=== PATIENT | male | born 1950 | race Caucasian/White ===

== ENCOUNTER 2017-12-17 16:15 | Inpatient (IN) | payer OTHER, MEDICARE ==
[~2017-12-17] VITALS: Ht 188 cm; Wt 108.0 kg
[~2017-12-17 16:15] MED LIST: ASPI-1071 PO; BUDE10.22 INH; CARV-50 PO; FLUT1AER IH; FURO-150 PO; GABA-532 PO; IPRA3AMP9 IH; OMEP40CA37 PO; POTA10TA36 PO; QUET-1 PO
[2017-12-17] MEDS ORDERED: ipratropium/albuterol 3ml nebule NEB ONE (16:45)
[2017-12-17] MEDS ORDERED: methylPREDNISolone sod succ 125mg/2ml vial IV ONE ×2 (16:45)
[2017-12-17 17:22] LABS: BASOPHILS # (AUTO) 1.4 X10'3 (0-0.2); BASOPHILS % (AUTO) 2.5 % (0-1); EOSINOPHILS # (AUTO) 0.2 X10'3 (0-0.9); EOSINOPHILS % (AUTO) 0.4 % (0-6); HEMATOCRIT 39.1 % (42.0-52.0); HEMOGLOBIN 13.1 g/dl (14.0-17.9); LYMPHOCYTES # (AUTO) 48.1 X10'3 (1.1-4.8); LYMPHOCYTES % (AUTO) 85.1 % (21-51); MEAN CORPUSCULAR HEMOGLOBIN 34.1 PG (27.0-31.0); MEAN CORPUSCULAR HGB CONC 33.4 % (33.0-36.5); MEAN CORPUSCULAR VOLUME 102.1 FL (78-98); MEAN PLATELET VOLUME 6.9 FL (7.4-10.4); MONOCYTES # (AUTO) 0.4 X10'3 (0-0.9); MONOCYTES % (AUTO) 0.7 % (2-12); NEUTROPHILS # (AUTO) 6.4 X10'3 (1.8-7.7); NEUTROPHILS % (AUTO) 11.3 % (42-75); PLATELET COUNT 123 X10'3 (140-440); RED BLOOD COUNT 3.83 X10'6 (4.70-6.10); RED CELL DISTRIBUTION WIDTH 16.7 % (11.5-14.5)
[2017-12-17 17:25] LABS: WHITE BLOOD COUNT 56.5 X10'3 (4.5-11.0)
[2017-12-17 17:30] LABS: PARTIAL THROMBOPLASTIN TIME 25 SECONDS (22-32); PROTHROMBIN TIME 10.1 SECONDS (9.0-12.0)
[2017-12-17 17:31] LABS: ABG BASE EXCESS 2.4 mmol/L (-2.0-3.0); ABG HCO3 25.8 mmol/L (22.0-26.0); ABG OXYGEN SATURATION 90.1 % (95-98); ABG PH (T) 7.473 (7.350-7.450); ABG PO2 (T) 52.1 mmHg (83-108); ALLEN'S TEST Positive; FCOHb 3.9 % (0.5-1.5); FMetHb 0.1 % (0.3-1.12); FO2Hb 86.5 % (94-100); TOTAL HEMOGLOBIN 13.4 G/dl (14.0-18.0)
[2017-12-17 17:42] LABS: ALANINE AMINOTRANSFERASE 31 U/L (12-78); ALBUMIN 3.7 G/DL (3.4-5.0); ALBUMIN/GLOBULIN RATIO 1.1 (1.1-1.5); ALKALINE PHOSPHATASE 83 IU/L (46-116); ANION GAP 4 (8-16); ASPARTATE AMINO TRANSFERASE 33 U/L (10-37); BILIRUBIN,TOTAL 0.6 MG/DL (0.1-1.0); BLOOD UREA NITROGEN 15 MG/DL (7-18); BUN/CREATININE RATIO 11.5 (5.4-32.0); CALCIUM 8.6 MG/DL (8.5-10.1); CHLORIDE 101 MMOL/L (99-107); GLUCOSE 109 MG/DL (70-104); POTASSIUM 3.9 MMOL/L (3.5-5.1); SODIUM 137 MMOL/L (135-145); TOTAL CARBON DIOXIDE 31.9 MMOL/L (24-32); TOTAL PROTEIN 7.2 G/DL (6.4-8.2); eGFR 55 ML/MIN
[2017-12-17 18:23] LABS: TOTAL CELLS COUNTED 100
[2017-12-17 18:24] LABS: ANISOCYTOSIS 1+; PLATELET ESTIMATE DECREASED; SMUDGE CELLS 3+
[2017-12-17] MEDS ORDERED: iohexol 350MG/ML 100ml bottle IV ONE (18:38)
[2017-12-17] MEDS ORDERED: levoFLOXACIN-Levaquin 500mg/D5 100 ML IV ONE (19:35)
[2017-12-17] MEDS ORDERED: mag hydrox/Alum hydrox/simeth 30ml oral suspension PO PRN (20:15)
[2017-12-17] MEDS ORDERED: acetaminophen 325mg tablet PO PRN (20:15)
[2017-12-17] MEDS ORDERED: ondansetron/PF 4mg/2ml inj IV PRN (20:15)
[2017-12-17 21:05] VITALS: BP 133/89
[2017-12-17] MEDS ORDERED: albuterol 2.5 MG/3 ML nebule NEB PRN (22:10)
[2017-12-17] MEDS: quetiapine 100mg tablet PO SCH (23:34)
[2017-12-17] MEDS: gabapentin 300mg capsule PO SCH (23:34)
[2017-12-17] MEDS: methylPREDNISolone sod succ/PF 40mg inj. IV SCH (23:35)
[2017-12-18 06:19] LABS: HEMATOCRIT 36.7 % (42.0-52.0); HEMOGLOBIN 12.2 g/dl (14.0-17.9); MEAN CORPUSCULAR HGB CONC 33.3 % (33.0-36.5); MEAN CORPUSCULAR VOLUME 102.2 FL (78-98); MEAN PLATELET VOLUME 7.2 FL (7.4-10.4); PLATELET COUNT 129 X10'3 (140-440); RED CELL DISTRIBUTION WIDTH 16.7 % (11.5-14.5)
[2017-12-18 06:34] LABS: WHITE BLOOD COUNT 70.7 X10'3 (4.5-11.0)
[2017-12-18 06:40] LABS: ALANINE AMINOTRANSFERASE 19 U/L (12-78); ALBUMIN 3.4 G/DL (3.4-5.0); ALKALINE PHOSPHATASE 81 IU/L (46-116); ANION GAP 8 (8-16); ASPARTATE AMINO TRANSFERASE 16 U/L (10-37); BILIRUBIN,TOTAL 0.5 MG/DL (0.1-1.0); BLOOD UREA NITROGEN 13 MG/DL (7-18); CALCIUM 8.4 MG/DL (8.5-10.1); CHLORIDE 100 MMOL/L (99-107); GLUCOSE 145 MG/DL (70-104); POTASSIUM 3.7 MMOL/L (3.5-5.1); SODIUM 136 MMOL/L (135-145); TOTAL CARBON DIOXIDE 27.9 MMOL/L (24-32); TOTAL PROTEIN 6.7 G/DL (6.4-8.2); eGFR 75 ML/MIN
[2017-12-18 06:57] LABS: ANISOCYTOSIS 1+; LYMPHOCYTES % (MANUAL) 90 % (21-51); MONOCYTES % (MANUAL) 1 % (2-12); NEUTROPHILS % (MANUAL) 9 % (42-75); PLATELET ESTIMATE DECREASED; TOTAL CELLS COUNTED 100
[2017-12-18 06:58] LABS: SMUDGE CELLS 4+
[2017-12-18] MEDS: ipratropium/albuterol 3ml nebule NEB PRN ×3 (07:43→22:22)
[2017-12-18 07:46] VITALS: BP 114/71
[2017-12-18] MEDS: methylPREDNISolone sod succ/PF 40mg inj. IV SCH (08:00)
[2017-12-18] MEDS ORDERED: non-formulary drug (Potassium Chloride (K-Dur) 1 TAB) PO SCH (08:00)
[2017-12-18] MEDS ORDERED: methylPREDNISolone sod succ/PF 40mg inj. IV SCH (08:00)
[2017-12-18] MEDS: potassium chloride 10mEq ER tablet PO SCH (08:12)
[2017-12-18] MEDS: LACTOBACILLUS RHAMNOSUS GG 15 billion unit sprinkle caps PO SCH (08:12)
[2017-12-18] MEDS: furosemide 20MG tablet PO SCH (08:12)
[2017-12-18] MEDS: aspirin 81mg tablet.DR PO SCH (08:13)
[2017-12-18] MEDS: carVEDilol 3.125mg tablet PO SCH ×2 (08:13→22:46)
[2017-12-18] MEDS: levoFLOXACIN 250mg tablet PO SCH (08:13)
[2017-12-18] MEDS: enoxaparin 40mg/0.4ml syringe SQ SCH (08:14)
[2017-12-18] MEDS ORDERED: HYDR-3564 PO (08:22)
[2017-12-18] MEDS: HYDROcodone/acetaminophen 5mg/325mg tablet PO PRN ×2 (09:52→17:44)
[2017-12-18 12:45] VITALS: BP 104/67
[2017-12-18] MEDS ORDERED: acetaminophen 325mg tablet PO PRN (16:45)
[2017-12-18 17:54] VITALS: BP 116/74
[2017-12-18] MEDS ORDERED: methylPREDNISolone sod succ 125mg/2ml vial IV ONE ×2 (18:05→22:25)
[2017-12-18] MEDS ORDERED: albuterol 2.5 MG/3 ML nebule NEB ONE (18:10)
[2017-12-18 20:00] VITALS: BP 125/76
[2017-12-18] MEDS ORDERED: LORazepam 2 mg/ml vial IV ONE (22:35)
[2017-12-18] MEDS ORDERED: LORazepam 2 mg/ml vial ONE (22:38)
[2017-12-18 22:45] VITALS: BP 120/91
[2017-12-18] MEDS: quetiapine 100mg tablet PO SCH (22:45)
[2017-12-18] MEDS: gabapentin 300mg capsule PO SCH (22:46)
[2017-12-18 23:34] VITALS: BP 114/79
[2017-12-19] VITALS (7 sets, daily range): BP systolic 97–113; BP diastolic 67–75
[2017-12-19] MEDS: ipratropium/albuterol 3ml nebule NEB PRN ×3 (02:48→21:06)
[2017-12-19 05:40] LABS: ALANINE AMINOTRANSFERASE 26 U/L (12-78); ALBUMIN 3.4 G/DL (3.4-5.0); ALKALINE PHOSPHATASE 73 IU/L (46-116); ANION GAP 5 (8-16); ASPARTATE AMINO TRANSFERASE 26 U/L (10-37); BILIRUBIN,TOTAL 0.4 MG/DL (0.1-1.0); BLOOD UREA NITROGEN 22 MG/DL (7-18); BUN/CREATININE RATIO 16.9 (5.4-32.0); CALCIUM 8.2 MG/DL (8.5-10.1); CHLORIDE 100 MMOL/L (99-107); GLUCOSE 155 MG/DL (70-104); POTASSIUM 4.5 MMOL/L (3.5-5.1); SODIUM 136 MMOL/L (135-145); TOTAL CARBON DIOXIDE 31.1 MMOL/L (24-32); TOTAL PROTEIN 6.7 G/DL (6.4-8.2); eGFR 55 ML/MIN
[2017-12-19 05:53] LABS: HEMOGLOBIN 12.2 g/dl (14.0-17.9)
[2017-12-19 06:04] LABS: HEMATOCRIT 34.9 % (42.0-52.0); MEAN CORPUSCULAR HEMOGLOBIN 35.5 PG (27.0-31.0); MEAN CORPUSCULAR HGB CONC 34.8 % (33.0-36.5); MEAN CORPUSCULAR VOLUME 101.9 FL (78-98); PLATELET COUNT 124 X10'3 (140-440); RED BLOOD COUNT 3.43 X10'6 (4.70-6.10); RED CELL DISTRIBUTION WIDTH 15.5 % (11.5-14.5)
[2017-12-19 06:11] LABS: WHITE BLOOD COUNT 74.2 X10'3 (4.5-11.0)
[2017-12-19 06:28] LABS: ANISOCYTOSIS 1+; PLATELET ESTIMATE DECREASED; TOTAL CELLS COUNTED 100
[2017-12-19 06:29] LABS: SMUDGE CELLS 4+
[2017-12-19] MEDS ORDERED: methylPREDNISolone sod succ 125mg/2ml vial IV SCH (08:00)
[2017-12-19] MEDS ORDERED: methylPREDNISolone sod succ/PF 40mg inj. IV SCH (08:00)
[2017-12-19] MEDS: levoFLOXACIN 250mg tablet PO SCH (08:25)
[2017-12-19] MEDS: potassium chloride 10mEq ER tablet PO SCH (08:27)
[2017-12-19] MEDS: carVEDilol 3.125mg tablet PO SCH ×2 (08:29→20:33)
[2017-12-19] MEDS: furosemide 20MG tablet PO SCH (08:31)
[2017-12-19] MEDS: HYDROcodone/acetaminophen 5mg/325mg tablet PO PRN ×2 (08:31→18:43)
[2017-12-19] MEDS: aspirin 81mg tablet.DR PO SCH (08:31)
[2017-12-19] MEDS: LACTOBACILLUS RHAMNOSUS GG 15 billion unit sprinkle caps PO SCH (08:32)
[2017-12-19] MEDS: enoxaparin 40mg/0.4ml syringe SQ SCH (08:40)
[2017-12-19] MEDS ORDERED: methylPREDNISolone sod succ 125mg/2ml vial IV PRN (10:25)
[2017-12-19] MEDS: guaiFENesin 200 MG/10 ML oral syrup UD cup PO SCH ×2 (12:07→20:34)
[2017-12-19] MEDS ORDERED: furosemide 20 MG/2 ML vial IV SCH (12:30)
[2017-12-19] MEDS ORDERED: prednisone 10mg tablet PO ONE (14:00)
[2017-12-19] MEDS ORDERED: LORazepam 0.5 MG tablet PO ONE (18:05)
[2017-12-19] MEDS: quetiapine 100mg tablet PO SCH (20:34)
[2017-12-19] MEDS: gabapentin 300mg capsule PO SCH (20:34)
[2017-12-20] VITALS: BP 99/80
[2017-12-20 06:14] LABS: HEMATOCRIT 36.3 % (42.0-52.0); HEMOGLOBIN 11.7 g/dl (14.0-17.9); MEAN CORPUSCULAR HEMOGLOBIN 33.7 PG (27.0-31.0); MEAN CORPUSCULAR HGB CONC 32.3 % (33.0-36.5); MEAN CORPUSCULAR VOLUME 104.5 FL (78-98); MEAN PLATELET VOLUME 7.3 FL (7.4-10.4); PLATELET COUNT 130 X10'3 (140-440); RED BLOOD COUNT 3.48 X10'6 (4.70-6.10)
[2017-12-20 06:20] LABS: WHITE BLOOD COUNT 72.5 X10'3 (4.5-11.0)
[2017-12-20 06:49] LABS: ALANINE AMINOTRANSFERASE 23 U/L (12-78); ALBUMIN 3.4 G/DL (3.4-5.0); ALBUMIN/GLOBULIN RATIO 1.1 (1.1-1.5); ALKALINE PHOSPHATASE 66 IU/L (46-116); ANION GAP 7 (8-16); ASPARTATE AMINO TRANSFERASE 15 U/L (10-37); BILIRUBIN,TOTAL 0.4 MG/DL (0.1-1.0); BLOOD UREA NITROGEN 26 MG/DL (7-18); CALCIUM 8.4 MG/DL (8.5-10.1); CHLORIDE 99 MMOL/L (99-107); GLUCOSE 109 MG/DL (70-104); MAGNESIUM 1.4 MG/DL (1.5-2.4); POTASSIUM 3.7 MMOL/L (3.5-5.1); SODIUM 138 MMOL/L (135-145); TOTAL CARBON DIOXIDE 31.7 MMOL/L (24-32); TOTAL PROTEIN 6.5 G/DL (6.4-8.2); eGFR 55 ML/MIN
[2017-12-20 06:56] LABS: TOTAL CELLS COUNTED 100
[2017-12-20 06:57] LABS: ANISOCYTOSIS 1+; PLATELET ESTIMATE DECREASED; SMUDGE CELLS 3+
[2017-12-20] MEDS: ipratropium/albuterol 3ml nebule NEB PRN ×2 (07:31→17:41)
[2017-12-20 08:00] VITALS: BP 100/59
[2017-12-20] MEDS ORDERED: predniSONE 20 mg tablet PO SCH (08:00)
[2017-12-20] MEDS: levoFLOXACIN 250mg tablet PO SCH (08:31)
[2017-12-20] MEDS: guaiFENesin 200 MG/10 ML oral syrup UD cup PO SCH ×3 (08:31→21:03)
[2017-12-20] MEDS: potassium chloride 10mEq ER tablet PO SCH (08:32)
[2017-12-20] MEDS: carVEDilol 3.125mg tablet PO SCH ×2 (08:32→21:04)
[2017-12-20] MEDS: LACTOBACILLUS RHAMNOSUS GG 15 billion unit sprinkle caps PO SCH (08:32)
[2017-12-20] MEDS: aspirin 81mg tablet.DR PO SCH (08:32)
[2017-12-20] MEDS: HYDROcodone/acetaminophen 5mg/325mg tablet PO PRN ×3 (08:33→21:10)
[2017-12-20] MEDS: enoxaparin 40mg/0.4ml syringe SQ SCH (08:33)
[2017-12-20] MEDS: magnesium hydroxide 30ml (MOM) UD suspension PO PRN (11:45)
[2017-12-20 11:50] VITALS: BP 91/60
[2017-12-20] MEDS ORDERED: MAGNESIUM IV ONE (13:55)
[2017-12-20] MEDS ORDERED: NORMAL SALINE IV ONE (13:55)
[2017-12-20 18:00] VITALS: BP 102/67
[2017-12-20] MEDS: gabapentin 300mg capsule PO SCH (21:03)
[2017-12-20] MEDS: quetiapine 100mg tablet PO SCH (21:03)
[2017-12-20] MEDS: LORazepam 2 mg/ml vial IV PRN (21:09)
[2017-12-21] VITALS: BP 101/59
[2017-12-21 07:10] LABS: HEMOGLOBIN 11.9 g/dl (14.0-17.9); MEAN CORPUSCULAR HEMOGLOBIN 33.7 PG (27.0-31.0); MEAN CORPUSCULAR HGB CONC 32.2 % (33.0-36.5); MEAN CORPUSCULAR VOLUME 104.8 FL (78-98); MEAN PLATELET VOLUME 7.3 FL (7.4-10.4); PLATELET COUNT 124 X10'3 (140-440); RED BLOOD COUNT 3.53 X10'6 (4.70-6.10); RED CELL DISTRIBUTION WIDTH 16.8 % (11.5-14.5)
[2017-12-21 07:17] LABS: WHITE BLOOD COUNT 66.8 X10'3 (4.5-11.0)
[2017-12-21 07:34] LABS: ALANINE AMINOTRANSFERASE 37 U/L (12-78); ALBUMIN 3.4 G/DL (3.4-5.0); ALBUMIN/GLOBULIN RATIO 1.2 (1.1-1.5); ALKALINE PHOSPHATASE 67 IU/L (46-116); ANION GAP 5 (8-16); ASPARTATE AMINO TRANSFERASE 27 U/L (10-37); BILIRUBIN,TOTAL 0.3 MG/DL (0.1-1.0); BLOOD UREA NITROGEN 20 MG/DL (7-18); BUN/CREATININE RATIO 18.2 (5.4-32.0); CALCIUM 8.3 MG/DL (8.5-10.1); CHLORIDE 101 MMOL/L (99-107); GLUCOSE 91 MG/DL (70-104); POTASSIUM 3.9 MMOL/L (3.5-5.1); SODIUM 137 MMOL/L (135-145); TOTAL CARBON DIOXIDE 31.1 MMOL/L (24-32); TOTAL PROTEIN 6.3 G/DL (6.4-8.2); eGFR 67 ML/MIN
[2017-12-21 07:40] LABS: ANISOCYTOSIS 1+; PLATELET ESTIMATE DECREASED; TOTAL CELLS COUNTED 100
[2017-12-21 07:41] LABS: SMUDGE CELLS 3+; STOMATOCYTES 1+
[2017-12-21 07:54] VITALS: BP 108/67
[2017-12-21] MEDS: guaiFENesin 200 MG/10 ML oral syrup UD cup PO SCH ×3 (08:01→20:25)
[2017-12-21] MEDS: levoFLOXACIN 250mg tablet PO SCH (08:01)
[2017-12-21] MEDS: magnesium hydroxide 30ml (MOM) UD suspension PO PRN (08:01)
[2017-12-21] MEDS: potassium chloride 10mEq ER tablet PO SCH (08:02)
[2017-12-21] MEDS: aspirin 81mg tablet.DR PO SCH (08:02)
[2017-12-21] MEDS: carVEDilol 3.125mg tablet PO SCH (08:02)
[2017-12-21] MEDS: prednisone 10mg tablet PO SCH (08:02)
[2017-12-21] MEDS: enoxaparin 40mg/0.4ml syringe SQ SCH (08:02)
[2017-12-21] MEDS: LACTOBACILLUS RHAMNOSUS GG 15 billion unit sprinkle caps PO SCH (08:02)
[2017-12-21] MEDS: HYDROcodone/acetaminophen 5mg/325mg tablet PO PRN ×2 (08:03→14:28)
[2017-12-21 11:49] VITALS: BP 112/69
[2017-12-21] MEDS: ipratropium/albuterol 3ml nebule NEB PRN (16:51)
[2017-12-21 18:00] VITALS: BP 128/85
[2017-12-21] MEDS: gabapentin 300mg capsule PO SCH (20:24)
[2017-12-21] MEDS: carvedilol 6.25mg tablet PO SCH (20:25)
[2017-12-21] MEDS: LORazepam 2 mg/ml vial IV PRN (21:02)
[2017-12-21 23:00] VITALS: BP 106/68
[2017-12-22] MEDS: ipratropium/albuterol 3ml nebule NEB PRN (00:53)
[2017-12-22 06:23] LABS: HEMOGLOBIN 12.1 g/dl (14.0-17.9); MEAN CORPUSCULAR HGB CONC 32.8 % (33.0-36.5); MEAN CORPUSCULAR VOLUME 103.9 FL (78-98); MEAN PLATELET VOLUME 7.4 FL (7.4-10.4); PLATELET COUNT 141 X10'3 (140-440); RED BLOOD COUNT 3.56 X10'6 (4.70-6.10); RED CELL DISTRIBUTION WIDTH 16.9 % (11.5-14.5)
[2017-12-22 06:39] LABS: ALANINE AMINOTRANSFERASE 47 U/L (12-78); ALBUMIN 3.4 G/DL (3.4-5.0); ALBUMIN/GLOBULIN RATIO 1.2 (1.1-1.5); ALKALINE PHOSPHATASE 65 IU/L (46-116); ANION GAP 5 (8-16); ASPARTATE AMINO TRANSFERASE 23 U/L (10-37); BILIRUBIN,TOTAL 0.4 MG/DL (0.1-1.0); BLOOD UREA NITROGEN 17 MG/DL (7-18); CALCIUM 8.2 MG/DL (8.5-10.1); CHLORIDE 100 MMOL/L (99-107); GLUCOSE 93 MG/DL (70-104); POTASSIUM 4.1 MMOL/L (3.5-5.1); SODIUM 136 MMOL/L (135-145); TOTAL CARBON DIOXIDE 31.3 MMOL/L (24-32); TOTAL PROTEIN 6.2 G/DL (6.4-8.2); eGFR 75 ML/MIN
[2017-12-22 07:30] VITALS: BP 101/69
[2017-12-22] MEDS: prednisone 10mg tablet PO SCH (07:40)
[2017-12-22] MEDS: enoxaparin 40mg/0.4ml syringe SQ SCH (07:41)
[2017-12-22] MEDS: levoFLOXACIN 250mg tablet PO SCH (07:41)
[2017-12-22] MEDS: LACTOBACILLUS RHAMNOSUS GG 15 billion unit sprinkle caps PO SCH (07:41)
[2017-12-22] MEDS: potassium chloride 10mEq ER tablet PO SCH (07:41)
[2017-12-22] MEDS: aspirin 81mg tablet.DR PO SCH (07:41)
[2017-12-22] MEDS: carvedilol 6.25mg tablet PO SCH (07:42)
[2017-12-22] MEDS: guaiFENesin 200 MG/10 ML oral syrup UD cup PO SCH ×2 (07:42→13:00)
[2017-12-22] MEDS ORDERED: carVEDilol 12.5mg tablet PO SCH (08:00)
[2017-12-22 08:44] LABS: WHITE BLOOD COUNT 71.6 X10'3 (4.5-11.0)
[2017-12-22 09:05] LABS: TOTAL CELLS COUNTED 100
[2017-12-22 09:06] LABS: ANISOCYTOSIS 1+; PLATELET ESTIMATE DECREASED; SMUDGE CELLS 3+; STOMATOCYTES 1+
[2017-12-22] MEDS ORDERED: LEVO250T58 PO (11:37)
[2017-12-22] MEDS ORDERED: QUET-1 PO (11:37)
[2017-12-22] MEDS ORDERED: PRED10TA PO (11:38)
[2017-12-22] MEDS ORDERED: LORA-269 PO (11:38)
[2017-12-22] MEDS ORDERED: CARV6.253 PO (11:38)
[2017-12-22] MEDS ORDERED: GUAI100L97 PO (11:38)
[2017-12-22] MEDS ORDERED: MAGN400C PO (11:38)
== END 2017-12-22 14:58 | disposition home or self-care (01) | DRG 189 ==
LOC: ER 16:16 → ED HOLD 20:14 → SUR 3N 21:05
PROVIDERS: ADMIT Internal Medicine; ATTEND Internal Medicine
DX: J96.21 Acute and chronic respiratory failure with hypoxia (principal); J84.9 Interstitial pulmonary disease, unspecified; C91.10 Chronic lymphocytic leukemia of B-cell type not having achieved remission; I47.1 Supraventricular tachycardia; I50.9 Heart failure, unspecified; I11.0 Hypertensive heart disease with heart failure; I08.1 Rheumatic disorders of both mitral and tricuspid valves; J44.1 Chronic obstructive pulmonary disease with (acute) exacerbation; I42.0 Dilated cardiomyopathy; I27.20 Pulmonary hypertension, unspecified; F17.210 Nicotine dependence, cigarettes, uncomplicated; I25.10 Atherosclerotic heart disease of native coronary artery without angina pectoris; K21.9 Gastro-esophageal reflux disease without esophagitis; E66.9 Obesity, unspecified; M19.90 Unspecified osteoarthritis, unspecified site; Z77.090 Contact with and (suspected) exposure to asbestos; J84.10 Pulmonary fibrosis, unspecified; R91.8 Other nonspecific abnormal finding of lung field; Z77.098 Contact with and (suspected) exposure to other hazardous, chiefly nonmedicinal, chemicals; I49.3 Ventricular premature depolarization; B33.24 Viral cardiomyopathy; F31.9 Bipolar disorder, unspecified; Z90.49 Acquired absence of other specified parts of digestive tract; Z99.81 Dependence on supplemental oxygen; Z88.8 Allergy status to other drugs, medicaments and biological substances; Z79.899 Other long term (current) drug therapy; Z92.21 Personal history of antineoplastic chemotherapy; Z68.30 Body mass index [BMI] 30.0-30.9, adult
CPT/HCPCS: 36415; 36600; 71045; 71275; 80053; 82803; 83605; 83735; 83880; 84145; 84484; 85018; 85025; 85610; 85730; 87040; 87070; 87502; 87503; 93005; 94640; 94760; 96365; 96375; 99285; J1650; J1940; J1956; J2060; J2270; J2405; J2920; J2930; J3475; J7030; J7512; Q9967

== ENCOUNTER 2018-01-10 17:12 | Inpatient (IN) | payer OTHER, MEDICARE ==
[~2018-01-10] VITALS: Ht 188 cm; Wt 111.0 kg
[~2018-01-10 17:12] MED LIST changes: -BUDE10.22 INH; -CARV-50 PO; +CARV6.253 PO; -FLUT1AER IH; +GUAI100L97 PO; +HYDR-3564 PO; -IPRA3AMP9 IH; +LEVO250T58 PO; +LORA-269 PO; +MAGN400C PO; -OMEP40CA37 PO; +PRED10TA PO
[2018-01-10 18:06] LABS: HEMATOCRIT 38.3 % (42.0-52.0); HEMOGLOBIN 12.6 g/dl (14.0-17.9); MEAN CORPUSCULAR HEMOGLOBIN 33.9 PG (27.0-31.0); MEAN CORPUSCULAR HGB CONC 32.9 % (33.0-36.5); MEAN CORPUSCULAR VOLUME 102.8 FL (78-98); MEAN PLATELET VOLUME 6.7 FL (7.4-10.4); PLATELET COUNT 140 X10'3 (140-440); RED BLOOD COUNT 3.72 X10'6 (4.70-6.10); RED CELL DISTRIBUTION WIDTH 16.2 % (11.5-14.5)
[2018-01-10 18:16] LABS: INR 0.9 INR; PARTIAL THROMBOPLASTIN TIME 25 SECONDS (22-32); PROTHROMBIN TIME 9.7 SECONDS (9.0-12.0); WHITE BLOOD COUNT 83.6 X10'3 (4.5-11.0)
[2018-01-10 18:23] LABS: ALANINE AMINOTRANSFERASE 20 U/L (12-78); ALBUMIN 3.7 G/DL (3.4-5.0); ALBUMIN/GLOBULIN RATIO 1.1 (1.1-1.5); ALKALINE PHOSPHATASE 105 IU/L (46-116); ANION GAP 10 (8-16); ASPARTATE AMINO TRANSFERASE 15 U/L (10-37); BILIRUBIN,TOTAL 0.4 MG/DL (0.1-1.0); BLOOD UREA NITROGEN 20 MG/DL (7-18); BUN/CREATININE RATIO 16.4 (5.4-32.0); CALCIUM 8.7 MG/DL (8.5-10.1); CHLORIDE 100 MMOL/L (99-107); CREATININE 1.22 MG/DL (0.60-1.10); GLUCOSE 97 MG/DL (70-104); POTASSIUM 3.8 MMOL/L (3.5-5.1); SODIUM 141 MMOL/L (135-145); TOTAL CARBON DIOXIDE 31.4 MMOL/L (24-32); eGFR 59 ML/MIN
[2018-01-10] MEDS ORDERED: dexamethasone sod phosphate 10mg/ml inj IV STA (19:12)
[2018-01-10] MEDS ORDERED: ipratropium/albuterol 3ml nebule NEB ONE (19:15)
[2018-01-10 19:39] LABS: TOTAL CELLS COUNTED 100
[2018-01-10 19:40] LABS: ANISOCYTOSIS 1+; PLATELET ESTIMATE NORMAL
[2018-01-10 19:41] LABS: SMUDGE CELLS 3+
[2018-01-10] MEDS ORDERED: ESOM20CA PO (19:59)
[2018-01-10] MEDS ORDERED: MOME0.132 (19:59)
[2018-01-10] MEDS ORDERED: ALB0.5UD IH (19:59)
[2018-01-10] MEDS ORDERED: temazepam 15mg capsule PO PRN (21:00)
[2018-01-10] MEDS ORDERED: magnesium 2GM in 50ml NS 50 ML IV PRN (22:45)
[2018-01-10] MEDS ORDERED: potassium Cl 20 mEq SR tablet PO PRN ×2 (22:45)
[2018-01-10] MEDS ORDERED: acetaminophen 325mg tablet PO PRN (22:45)
[2018-01-10] MEDS ORDERED: potassium Cl 40MEQ/NS 500ml 500 ML IV PRN ×2 (22:45)
[2018-01-10] MEDS ORDERED: morphine 2 MG/ML inj. syringe IV PRN ×2 (22:45)
[2018-01-10] MEDS ORDERED: magnesium 4gm in 100ml NS 100 ML IV PRN (22:45)
[2018-01-10] MEDS ORDERED: magnesium hydroxide 30ml (MOM) UD suspension PO PRN (22:45)
[2018-01-10] MEDS ORDERED: mag hydrox/Alum hydrox/simeth 30ml oral suspension PO PRN (22:45)
[2018-01-10] MEDS ORDERED: ondansetron/PF 4mg/2ml inj IV PRN (22:45)
[2018-01-11] VITALS (13 sets, daily range): BP systolic 104–140; BP diastolic 64–97
[2018-01-11] MEDS: quetiapine 100mg tablet PO SCH ×2 (00:04→20:47)
[2018-01-11] MEDS: LORazepam 1 MG tablet PO SCH ×4 (00:04→23:11)
[2018-01-11] MEDS: HYDROcodone/acetaminophen 5mg/325mg tablet PO PRN ×3 (00:05→20:55)
[2018-01-11] MEDS: CefTRIAXone 2gm/NS 100ml IVPB 100 ML IV SCH ×2 (00:06→20:48)
[2018-01-11] MEDS: normal saline 1000ml 1,000 ML IV SCH ×2 (00:07→08:42)
[2018-01-11] MEDS: albuterol 2.5 MG/3 ML nebule NEB PRN ×5 (00:16→22:48)
[2018-01-11 06:31] LABS: HEMATOCRIT 34.2 % (42.0-52.0); HEMOGLOBIN 11.6 g/dl (14.0-17.9); MEAN CORPUSCULAR HEMOGLOBIN 34.2 PG (27.0-31.0); MEAN CORPUSCULAR VOLUME 100.7 FL (78-98); PLATELET COUNT 130 X10'3 (140-440); RED CELL DISTRIBUTION WIDTH 15.7 % (11.5-14.5)
[2018-01-11 06:48] LABS: ALANINE AMINOTRANSFERASE 13 U/L (12-78); ALBUMIN 3.3 G/DL (3.4-5.0); ALKALINE PHOSPHATASE 96 IU/L (46-116); ANION GAP 6 (8-16); ASPARTATE AMINO TRANSFERASE 12 U/L (10-37); BILIRUBIN,TOTAL 0.3 MG/DL (0.1-1.0); BLOOD UREA NITROGEN 17 MG/DL (7-18); BUN/CREATININE RATIO 17.2 (5.4-32.0); CALCIUM 8.4 MG/DL (8.5-10.1); CHLORIDE 102 MMOL/L (99-107); CREATININE 0.99 MG/DL (0.60-1.10); GLUCOSE 150 MG/DL (70-104); MAGNESIUM 1.4 MG/DL (1.5-2.4); POTASSIUM 4.2 MMOL/L (3.5-5.1); SODIUM 139 MMOL/L (135-145); TOTAL CARBON DIOXIDE 31.2 MMOL/L (24-32); TOTAL PROTEIN 6.6 G/DL (6.4-8.2); eGFR 76 ML/MIN
[2018-01-11 07:21] LABS: ANISOCYTOSIS 1+; PLATELET ESTIMATE DECREASED; TOTAL CELLS COUNTED 100
[2018-01-11 07:22] LABS: SMUDGE CELLS 3+
[2018-01-11] MEDS: K and/or MAG REPLACEMENT MC SCH (07:32)
[2018-01-11] MEDS: magnesium Cl slow-release 64mg tablet PO PRN ×2 (07:54→23:11)
[2018-01-11] MEDS: prednisone 10mg tablet PO SCH (07:55)
[2018-01-11] MEDS: lactobacillus rhamnosus 10,000 MMU CELLS/CAPSULE PO SCH ×2 (07:55→17:30)
[2018-01-11] MEDS: carvedilol 6.25mg tablet PO SCH ×2 (07:56→20:47)
[2018-01-11] MEDS: aspirin 81mg tablet.DR PO SCH (07:56)
[2018-01-11] MEDS: potassium chloride 10mEq ER tablet PO SCH (07:56)
[2018-01-11] MEDS: magnesium oxide 400mg tablet PO SCH (07:57)
[2018-01-11] MEDS: furosemide 20MG tablet PO SCH (07:57)
[2018-01-11] MEDS: heparin, porcine 5000 units/ml vial SQ SCH ×2 (07:59→20:48)
[2018-01-11 09:00] LABS: WHITE BLOOD COUNT 74.6 X10'3 (4.5-11.0)
[2018-01-11] MEDS: guaiFENesin 200mg/10ml UD cup PO SCH ×3 (11:02→20:56)
[2018-01-11] MEDS ORDERED: fluticasone/vilanterol 200mcg/25mcg inhaler IH ONE (11:15)
[2018-01-11] MEDS ORDERED: LORazepam 2 mg/ml vial IV ONE ×2 (16:20→16:35)
[2018-01-11 16:46] LABS: ABG BASE EXCESS -8.2 mmol/L (-2.0-3.0); ABG HCO3 24.2 mmol/L (22.0-26.0); ABG OXYGEN SATURATION 93.5 % (95-98); ABG PCO2 (T) 89.6 mmHg (35.0-48.0); ABG PH (T) 7.049 (7.350-7.450); ABG PO2 (T) 90.6 mmHg (83-108); FCOHb 0.1 % (0.5-1.5); FLOW 15 L/min; FMetHb 0.2 % (0.3-1.12); FO2Hb 93.2 % (94-100); TOTAL HEMOGLOBIN 13.4 G/dl (14.0-18.0)
[2018-01-11 18:06] LABS: ABG BASE EXCESS -2.1 mmol/L (-2.0-3.0); ABG HCO3 24.5 mmol/L (22.0-26.0); ABG OXYGEN SATURATION 99.6 % (95-98); ABG PCO2 (T) 49.6 mmHg (35.0-48.0); ABG PH (T) 7.312 (7.350-7.450); ABG PO2 (T) 439.8 mmHg (83-108); ALLEN'S TEST Positive; FMetHb 0.2 % (0.3-1.12); FO2Hb 99.4 % (94-100); MINUTE VOLUME 25 L/min; RESPIRATORY RATE 22 b/min; RESPIRATORY RATE (OBSERVED) 25 b/min; TOTAL HEMOGLOBIN 12.7 G/dl (14.0-18.0)
[2018-01-11] MEDS: gabapentin 300mg capsule PO SCH (20:47)
[2018-01-12] VITALS (10 sets, daily range): BP systolic 90–112; BP diastolic 56–88
[2018-01-12 07:45] LABS: ALANINE AMINOTRANSFERASE 23 U/L (12-78); ALBUMIN 3.4 G/DL (3.4-5.0); ALBUMIN/GLOBULIN RATIO 1.1 (1.1-1.5); ALKALINE PHOSPHATASE 84 IU/L (46-116); ANION GAP 10 (8-16); ASPARTATE AMINO TRANSFERASE 15 U/L (10-37); BILIRUBIN,TOTAL 0.4 MG/DL (0.1-1.0); BLOOD UREA NITROGEN 17 MG/DL (7-18); CALCIUM 8.4 MG/DL (8.5-10.1); CHLORIDE 102 MMOL/L (99-107); CREATININE 1.21 MG/DL (0.60-1.10); GLUCOSE 98 MG/DL (70-104); MAGNESIUM 1.5 MG/DL (1.5-2.4); SODIUM 140 MMOL/L (135-145); TOTAL CARBON DIOXIDE 28.2 MMOL/L (24-32); TOTAL PROTEIN 6.5 G/DL (6.4-8.2); eGFR 60 ML/MIN
[2018-01-12 07:50] LABS: BASOPHILS # (AUTO) 0.6 X10'3 (0-0.2); BASOPHILS % (AUTO) 1.1 % (0-1); EOSINOPHILS # (AUTO) 0.1 X10'3 (0-0.9); EOSINOPHILS % (AUTO) 0.2 % (0-6); HEMATOCRIT 34.1 % (42.0-52.0); HEMOGLOBIN 11.5 g/dl (14.0-17.9); LYMPHOCYTES # (AUTO) 42.6 X10'3 (1.1-4.8); LYMPHOCYTES % (AUTO) 87.6 % (21-51); MEAN CORPUSCULAR HEMOGLOBIN 34.1 PG (27.0-31.0); MEAN CORPUSCULAR HGB CONC 33.8 % (33.0-36.5); MEAN CORPUSCULAR VOLUME 100.8 FL (78-98); MEAN PLATELET VOLUME 7.2 FL (7.4-10.4); MONOCYTES # (AUTO) 0.1 X10'3 (0-0.9); MONOCYTES % (AUTO) 0.2 % (2-12); NEUTROPHILS # (AUTO) 5.3 X10'3 (1.8-7.7); NEUTROPHILS % (AUTO) 10.9 % (42-75); PLATELET COUNT 112 X10'3 (140-440); RED BLOOD COUNT 3.38 X10'6 (4.70-6.10); RED CELL DISTRIBUTION WIDTH 15.8 % (11.5-14.5)
[2018-01-12] MEDS: fluticasone/vilanterol 200mcg/25mcg inhaler IH SCH (07:56)
[2018-01-12] MEDS: K and/or MAG REPLACEMENT MC SCH (08:00)
[2018-01-12] MEDS: heparin, porcine 5000 units/ml vial SQ SCH ×3 (08:00→21:25)
[2018-01-12 08:02] LABS: WHITE BLOOD COUNT 48.6 X10'3 (4.5-11.0)
[2018-01-12] MEDS: potassium chloride 10mEq ER tablet PO SCH (08:23)
[2018-01-12] MEDS: guaiFENesin 200mg/10ml UD cup PO SCH ×3 (08:23→21:29)
[2018-01-12] MEDS: LORazepam 1 MG tablet PO SCH (08:23)
[2018-01-12] MEDS: carvedilol 6.25mg tablet PO SCH ×2 (08:24→21:22)
[2018-01-12] MEDS: lactobacillus rhamnosus 10,000 MMU CELLS/CAPSULE PO SCH ×2 (08:25→17:21)
[2018-01-12] MEDS: furosemide 20MG tablet PO SCH (08:25)
[2018-01-12] MEDS: HYDROcodone/acetaminophen 5mg/325mg tablet PO PRN ×3 (08:25→21:29)
[2018-01-12] MEDS: magnesium oxide 400mg tablet PO SCH (08:26)
[2018-01-12] MEDS: aspirin 81mg tablet.DR PO SCH (08:26)
[2018-01-12] MEDS: prednisone 10mg tablet PO SCH (08:26)
[2018-01-12 10:36] LABS: ABG BASE EXCESS 2.2 mmol/L (-2.0-3.0); ABG HCO3 26.8 mmol/L (22.0-26.0); ABG OXYGEN SATURATION 97.4 % (95-98); ABG PCO2 (T) 41.7 mmHg (35.0-48.0); ABG PH (T) 7.426 (7.350-7.450); ALLEN'S TEST Positive; FCOHb 0.3 % (0.5-1.5); FMetHb 0.1 % (0.3-1.12); MINUTE VOLUME 20 L/min; RESPIRATORY RATE 22 b/min; RESPIRATORY RATE (OBSERVED) 26 b/min; TOTAL HEMOGLOBIN 11.8 G/dl (14.0-18.0)
[2018-01-12] MEDS: albuterol 2.5 MG/3 ML nebule NEB PRN ×3 (12:09→23:09)
[2018-01-12 15:52] LABS: ANISOCYTOSIS 1+; PLATELET ESTIMATE DECREASED; POLYCHROMASIA FEW; TOTAL CELLS COUNTED 100
[2018-01-12 15:53] LABS: SMUDGE CELLS 4+
[2018-01-12] MEDS: LORazepam 0.5 MG tablet PO SCH (16:22)
[2018-01-12] MEDS: quetiapine 100mg tablet PO SCH (21:23)
[2018-01-12] MEDS: CefTRIAXone 2gm/NS 100ml IVPB 100 ML IV SCH (21:24)
[2018-01-12] MEDS: gabapentin 300mg capsule PO SCH (21:24)
[2018-01-13] VITALS (10 sets, daily range): BP systolic 93–112; BP diastolic 56–77
[2018-01-13] MEDS: LORazepam 0.5 MG tablet PO SCH ×3 (00:02→16:03)
[2018-01-13] MEDS: albuterol 2.5 MG/3 ML nebule NEB PRN ×4 (04:45→19:57)
[2018-01-13 04:57] LABS: BASOPHILS # (AUTO) 0.3 X10'3 (0-0.2); BASOPHILS % (AUTO) 0.7 % (0-1); EOSINOPHILS # (AUTO) 0.2 X10'3 (0-0.9); EOSINOPHILS % (AUTO) 0.5 % (0-6); HEMOGLOBIN 10.9 g/dl (14.0-17.9); LYMPHOCYTES # (AUTO) 38.5 X10'3 (1.1-4.8); LYMPHOCYTES % (AUTO) 88.9 % (21-51); MEAN CORPUSCULAR HEMOGLOBIN 33.5 PG (27.0-31.0); MEAN CORPUSCULAR HGB CONC 33.1 % (33.0-36.5); MEAN CORPUSCULAR VOLUME 101.3 FL (78-98); MEAN PLATELET VOLUME 7.6 FL (7.4-10.4); MONOCYTES # (AUTO) 0.2 X10'3 (0-0.9); MONOCYTES % (AUTO) 0.5 % (2-12); NEUTROPHILS # (AUTO) 4.1 X10'3 (1.8-7.7); NEUTROPHILS % (AUTO) 9.4 % (42-75); PLATELET COUNT 113 X10'3 (140-440); RED BLOOD COUNT 3.26 X10'6 (4.70-6.10); RED CELL DISTRIBUTION WIDTH 16.3 % (11.5-14.5)
[2018-01-13 05:20] LABS: WHITE BLOOD COUNT 43.3 X10'3 (4.5-11.0)
[2018-01-13 05:31] LABS: ALANINE AMINOTRANSFERASE 19 U/L (12-78); ALBUMIN 3.3 G/DL (3.4-5.0); ALBUMIN/GLOBULIN RATIO 1.1 (1.1-1.5); ALKALINE PHOSPHATASE 81 IU/L (46-116); ANION GAP 8 (8-16); ASPARTATE AMINO TRANSFERASE 13 U/L (10-37); BILIRUBIN,TOTAL 0.4 MG/DL (0.1-1.0); BLOOD UREA NITROGEN 19 MG/DL (7-18); BUN/CREATININE RATIO 17.9 (5.4-32.0); CALCIUM 8.5 MG/DL (8.5-10.1); CHLORIDE 102 MMOL/L (99-107); CREATININE 1.06 MG/DL (0.60-1.10); GLUCOSE 95 MG/DL (70-104); MAGNESIUM 1.7 MG/DL (1.5-2.4); POTASSIUM 3.8 MMOL/L (3.5-5.1); SODIUM 139 MMOL/L (135-145); TOTAL CARBON DIOXIDE 29.2 MMOL/L (24-32); TOTAL PROTEIN 6.3 G/DL (6.4-8.2); eGFR 70 ML/MIN
[2018-01-13 06:03] LABS: LYMPHOCYTES % (MANUAL) 92 % (21-51); MONOCYTES % (MANUAL) 1 % (2-12); NEUTROPHILS % (MANUAL) 7 % (42-75); PLATELET ESTIMATE DECREASED; SMUDGE CELLS 3+; TOTAL CELLS COUNTED 100
[2018-01-13] MEDS: magnesium oxide 400mg tablet PO SCH (07:32)
[2018-01-13] MEDS: furosemide 20MG tablet PO SCH (07:32)
[2018-01-13] MEDS: heparin, porcine 5000 units/ml vial SQ SCH ×2 (07:32→21:13)
[2018-01-13] MEDS: potassium chloride 10mEq ER tablet PO SCH (07:32)
[2018-01-13] MEDS: HYDROcodone/acetaminophen 5mg/325mg tablet PO PRN ×2 (07:33→21:11)
[2018-01-13] MEDS: aspirin 81mg tablet.DR PO SCH (07:33)
[2018-01-13] MEDS: lactobacillus rhamnosus 10,000 MMU CELLS/CAPSULE PO SCH ×2 (07:34→17:15)
[2018-01-13] MEDS: guaiFENesin 200mg/10ml UD cup PO SCH ×3 (07:34→21:21)
[2018-01-13] MEDS: prednisone 10mg tablet PO SCH (07:34)
[2018-01-13] MEDS: carvedilol 6.25mg tablet PO SCH ×2 (07:35→21:11)
[2018-01-13] MEDS: K and/or MAG REPLACEMENT MC SCH (08:00)
[2018-01-13] MEDS: fluticasone/vilanterol 200mcg/25mcg inhaler IH SCH (08:14)
[2018-01-13] MEDS: quetiapine 100mg tablet PO SCH (21:10)
[2018-01-13] MEDS: gabapentin 300mg capsule PO SCH (21:11)
[2018-01-13] MEDS: CefTRIAXone 2gm/NS 100ml IVPB 100 ML IV SCH (21:13)
[2018-01-14] VITALS (7 sets, daily range): BP systolic 88–116; BP diastolic 55–78
[2018-01-14] MEDS: LORazepam 0.5 MG tablet PO SCH ×3 (00:06→16:10)
[2018-01-14 05:15] LABS: BASOPHILS # (AUTO) 0.5 X10'3 (0-0.2); BASOPHILS % (AUTO) 1.4 % (0-1); EOSINOPHILS # (AUTO) 0.2 X10'3 (0-0.9); EOSINOPHILS % (AUTO) 0.5 % (0-6); HEMATOCRIT 32.2 % (42.0-52.0); HEMOGLOBIN 10.9 g/dl (14.0-17.9); LYMPHOCYTES # (AUTO) 33.2 X10'3 (1.1-4.8); LYMPHOCYTES % (AUTO) 86.9 % (21-51); MEAN CORPUSCULAR HEMOGLOBIN 34.1 PG (27.0-31.0); MEAN CORPUSCULAR HGB CONC 33.8 % (33.0-36.5); MEAN CORPUSCULAR VOLUME 100.8 FL (78-98); MEAN PLATELET VOLUME 7.4 FL (7.4-10.4); MONOCYTES # (AUTO) 0.5 X10'3 (0-0.9); MONOCYTES % (AUTO) 1.4 % (2-12); NEUTROPHILS # (AUTO) 3.7 X10'3 (1.8-7.7); NEUTROPHILS % (AUTO) 9.8 % (42-75); PLATELET COUNT 110 X10'3 (140-440); RED CELL DISTRIBUTION WIDTH 16.2 % (11.5-14.5)
[2018-01-14 05:18] LABS: WHITE BLOOD COUNT 38.2 X10'3 (4.5-11.0)
[2018-01-14 05:44] LABS: ALANINE AMINOTRANSFERASE 26 U/L (12-78); ALBUMIN 3.3 G/DL (3.4-5.0); ALBUMIN/GLOBULIN RATIO 1.1 (1.1-1.5); ALKALINE PHOSPHATASE 78 IU/L (46-116); ANION GAP 7 (8-16); ASPARTATE AMINO TRANSFERASE 14 U/L (10-37); BILIRUBIN,TOTAL 0.3 MG/DL (0.1-1.0); BLOOD UREA NITROGEN 18 MG/DL (7-18); BUN/CREATININE RATIO 15.8 (5.4-32.0); CALCIUM 8.5 MG/DL (8.5-10.1); CHLORIDE 101 MMOL/L (99-107); CREATININE 1.14 MG/DL (0.60-1.10); GLUCOSE 94 MG/DL (70-104); MAGNESIUM 1.8 MG/DL (1.5-2.4); SODIUM 140 MMOL/L (135-145); TOTAL CARBON DIOXIDE 32.1 MMOL/L (24-32); TOTAL PROTEIN 6.3 G/DL (6.4-8.2); eGFR 64 ML/MIN
[2018-01-14 06:35] LABS: LYMPHOCYTES % (MANUAL) 88 % (21-51); MONOCYTES % (MANUAL) 2 % (2-12); NEUTROPHILS % (MANUAL) 10 % (42-75); TOTAL CELLS COUNTED 100
[2018-01-14 06:36] LABS: ANISOCYTOSIS 1+; PLATELET ESTIMATE DECREASED; SMUDGE CELLS 2+
[2018-01-14] MEDS: lactobacillus rhamnosus 10,000 MMU CELLS/CAPSULE PO SCH ×2 (07:33→16:53)
[2018-01-14] MEDS: furosemide 20MG tablet PO SCH (07:35)
[2018-01-14] MEDS: magnesium oxide 400mg tablet PO SCH (07:36)
[2018-01-14] MEDS: potassium chloride 10mEq ER tablet PO SCH (07:36)
[2018-01-14] MEDS: aspirin 81mg tablet.DR PO SCH (07:37)
[2018-01-14] MEDS: prednisone 10mg tablet PO SCH (07:37)
[2018-01-14] MEDS: carvedilol 6.25mg tablet PO SCH ×2 (07:37→20:00)
[2018-01-14] MEDS: guaiFENesin 200mg/10ml UD cup PO SCH ×3 (07:37→20:44)
[2018-01-14] MEDS: heparin, porcine 5000 units/ml vial SQ SCH ×2 (07:38→20:43)
[2018-01-14] MEDS: K and/or MAG REPLACEMENT MC SCH (08:00)
[2018-01-14] MEDS: albuterol 2.5 MG/3 ML nebule NEB PRN ×2 (09:55→18:45)
[2018-01-14] MEDS: fluticasone/vilanterol 200mcg/25mcg inhaler IH SCH (09:55)
[2018-01-14] MEDS: pantoprazole 40mg Tablet.DR PO SCH (11:01)
[2018-01-14] MEDS: HYDROcodone/acetaminophen 5mg/325mg tablet PO PRN ×3 (11:01→23:20)
[2018-01-14] MEDS: CefTRIAXone 2gm/NS 100ml IVPB 100 ML IV SCH (20:42)
[2018-01-14] MEDS: gabapentin 300mg capsule PO SCH (20:43)
[2018-01-14] MEDS: quetiapine 100mg tablet PO SCH (20:43)
[2018-01-15] MEDS: LORazepam 0.5 MG tablet PO SCH ×4 (00:17→23:45)
[2018-01-15 02:00] VITALS: BP 92/63
[2018-01-15] MEDS: HYDROcodone/acetaminophen 5mg/325mg tablet PO PRN ×4 (04:44→19:29)
[2018-01-15 05:52] LABS: HEMATOCRIT 32.2 % (42.0-52.0); HEMOGLOBIN 10.9 g/dl (14.0-17.9); MEAN CORPUSCULAR HEMOGLOBIN 34.3 PG (27.0-31.0); MEAN CORPUSCULAR HGB CONC 33.7 % (33.0-36.5); MEAN CORPUSCULAR VOLUME 101.8 FL (78-98); MEAN PLATELET VOLUME 7.7 FL (7.4-10.4); PLATELET COUNT 118 X10'3 (140-440); RED BLOOD COUNT 3.16 X10'6 (4.70-6.10); RED CELL DISTRIBUTION WIDTH 16.4 % (11.5-14.5)
[2018-01-15 06:00] VITALS: BP 91/63
[2018-01-15 06:05] LABS: ALANINE AMINOTRANSFERASE 24 U/L (12-78); ALBUMIN 3.3 G/DL (3.4-5.0); ALBUMIN/GLOBULIN RATIO 1.2 (1.1-1.5); ALKALINE PHOSPHATASE 76 IU/L (46-116); ANION GAP 4 (8-16); ASPARTATE AMINO TRANSFERASE 9 U/L (10-37); BILIRUBIN,TOTAL 0.3 MG/DL (0.1-1.0); BLOOD UREA NITROGEN 18 MG/DL (7-18); CALCIUM 8.4 MG/DL (8.5-10.1); CHLORIDE 102 MMOL/L (99-107); GLUCOSE 92 MG/DL (70-104); SODIUM 140 MMOL/L (135-145); TOTAL CARBON DIOXIDE 33.6 MMOL/L (24-32); TOTAL PROTEIN 6.1 G/DL (6.4-8.2); eGFR 61 ML/MIN
[2018-01-15 06:34] LABS: TOTAL CELLS COUNTED 100; WHITE BLOOD COUNT 40.7 X10'3 (4.5-11.0)
[2018-01-15 06:38] LABS: LYMPHOCYTES % (MANUAL) 93 % (21-51); MONOCYTES % (MANUAL) 1 % (2-12); NEUTROPHILS % (MANUAL) 6 % (42-75); SMUDGE CELLS 3+
[2018-01-15 06:39] LABS: ANISOCYTOSIS 1+; PLATELET ESTIMATE DECREASED; STOMATOCYTES 1+
[2018-01-15] MEDS: pantoprazole 40mg Tablet.DR PO SCH (07:44)
[2018-01-15] MEDS: aspirin 81mg tablet.DR PO SCH (07:45)
[2018-01-15] MEDS: lactobacillus rhamnosus 10,000 MMU CELLS/CAPSULE PO SCH ×2 (07:45→17:11)
[2018-01-15] MEDS: magnesium oxide 400mg tablet PO SCH (07:45)
[2018-01-15] MEDS: prednisone 10mg tablet PO SCH (07:45)
[2018-01-15] MEDS: heparin, porcine 5000 units/ml vial SQ SCH ×2 (07:46→19:31)
[2018-01-15] MEDS: guaiFENesin 200mg/10ml UD cup PO SCH ×3 (07:47→19:29)
[2018-01-15] MEDS: furosemide 20MG tablet PO SCH (07:47)
[2018-01-15] MEDS: carvedilol 6.25mg tablet PO SCH ×2 (07:47→19:30)
[2018-01-15] MEDS: potassium chloride 10mEq ER tablet PO SCH (07:47)
[2018-01-15] MEDS: K and/or MAG REPLACEMENT MC SCH (08:00)
[2018-01-15] MEDS: albuterol 2.5 MG/3 ML nebule NEB PRN ×2 (08:43→21:36)
[2018-01-15] MEDS: fluticasone/vilanterol 200mcg/25mcg inhaler IH SCH (08:43)
[2018-01-15 11:00] VITALS: BP 95/66
[2018-01-15 19:00] VITALS: BP 113/68
[2018-01-15] MEDS: gabapentin 300mg capsule PO SCH (19:29)
[2018-01-15] MEDS: quetiapine 100mg tablet PO SCH (19:29)
[2018-01-15] MEDS: CefTRIAXone 2gm/NS 100ml IVPB 100 ML IV SCH (19:30)
[2018-01-15 23:00] VITALS: BP 105/68
[2018-01-16 02:52] VITALS: BP 95/71
[2018-01-16] MEDS: HYDROcodone/acetaminophen 5mg/325mg tablet PO PRN ×2 (05:36→13:21)
[2018-01-16 06:00] VITALS: BP 103/65
[2018-01-16] MEDS: magnesium oxide 400mg tablet PO SCH (07:19)
[2018-01-16] MEDS: heparin, porcine 5000 units/ml vial SQ SCH (07:19)
[2018-01-16] MEDS: LORazepam 0.5 MG tablet PO SCH (07:19)
[2018-01-16] MEDS: aspirin 81mg tablet.DR PO SCH (07:19)
[2018-01-16] MEDS: pantoprazole 40mg Tablet.DR PO SCH (07:19)
[2018-01-16] MEDS: lactobacillus rhamnosus 10,000 MMU CELLS/CAPSULE PO SCH (07:20)
[2018-01-16] MEDS: guaiFENesin 200mg/10ml UD cup PO SCH ×2 (07:20→13:21)
[2018-01-16 07:22] LABS: ALBUMIN 3.4 G/DL (3.4-5.0); ANION GAP 9 (8-16); BLOOD UREA NITROGEN 19 MG/DL (7-18); BUN/CREATININE RATIO 18.4 (5.4-32.0); CALCIUM 8.8 MG/DL (8.5-10.1); CHLORIDE 101 MMOL/L (99-107); CREATININE 1.03 MG/DL (0.60-1.10); GLUCOSE 94 MG/DL (70-104); POTASSIUM 4.1 MMOL/L (3.5-5.1); SODIUM 140 MMOL/L (135-145); TOTAL CARBON DIOXIDE 29.9 MMOL/L (24-32); eGFR 72 ML/MIN
[2018-01-16] MEDS: carvedilol 6.25mg tablet PO SCH (07:27)
[2018-01-16] MEDS: potassium chloride 10mEq ER tablet PO SCH (07:27)
[2018-01-16] MEDS: furosemide 20MG tablet PO SCH (07:28)
[2018-01-16] MEDS: K and/or MAG REPLACEMENT MC SCH (08:00)
[2018-01-16] MEDS ORDERED: predniSONE 20 mg tablet PO SCH (08:00)
[2018-01-16] MEDS: albuterol 2.5 MG/3 ML nebule NEB PRN (08:24)
[2018-01-16] MEDS: fluticasone/vilanterol 200mcg/25mcg inhaler IH SCH (08:25)
[2018-01-16 11:00] VITALS: BP 114/74
[2018-01-16] MEDS ORDERED: PRED10TA23 PO (13:18)
[2018-01-16] MEDS ORDERED: AMOX-422 PO (13:18)
[2018-01-16] MEDS ORDERED: CARV6.253 PO (13:18)
== END 2018-01-16 15:40 | disposition home or self-care (01) | DRG 190 ==
LOC: ER 17:13 → ED HOLD 22:42 → PCU 3S 23:35
PROVIDERS: ADMIT Internal Medicine; ATTEND Internal Medicine
PROC: 5A09457 Assistance with Respiratory Ventilation, 24-96 Consecutive Hours, Continuous Positive Airway Pressure (ICD-10-PCS; principal; 2018-01-11)
DX: J44.1 Chronic obstructive pulmonary disease with (acute) exacerbation (principal); J96.22 Acute and chronic respiratory failure with hypercapnia; C91.10 Chronic lymphocytic leukemia of B-cell type not having achieved remission; I27.20 Pulmonary hypertension, unspecified; E83.42 Hypomagnesemia; G62.9 Polyneuropathy, unspecified; I50.22 Chronic systolic (congestive) heart failure; I42.0 Dilated cardiomyopathy; I11.0 Hypertensive heart disease with heart failure; I25.5 Ischemic cardiomyopathy; F41.9 Anxiety disorder, unspecified; F31.9 Bipolar disorder, unspecified; F43.10 Post-traumatic stress disorder, unspecified; I25.10 Atherosclerotic heart disease of native coronary artery without angina pectoris; I73.9 Peripheral vascular disease, unspecified; J84.10 Pulmonary fibrosis, unspecified; K21.9 Gastro-esophageal reflux disease without esophagitis; Z90.49 Acquired absence of other specified parts of digestive tract; Z99.81 Dependence on supplemental oxygen; Z88.8 Allergy status to other drugs, medicaments and biological substances; Z79.82 Long term (current) use of aspirin; Z79.899 Other long term (current) drug therapy; Z87.891 Personal history of nicotine dependence; Z82.49 Family history of ischemic heart disease and other diseases of the circulatory system
CPT/HCPCS: 36415; 36600; 71045; 80048; 80053; 82803; 83735; 83880; 84484; 85018; 85025; 85610; 85730; 87070; 87502; 87503; 93005; 93306; 94640; 94660; 94667; 94668; 94760; 96374; 99285; A6257; A6258; J0696; J1100; J1644; J2060; J2405; J7030; J7512

== ENCOUNTER 2018-01-30 18:25 | Emergency (ER) | payer OTHER, MEDICARE ==
[~2018-01-30] VITALS: Ht 188 cm; Wt 111.3 kg
[~2018-01-30 18:25] MED LIST changes: +ALB0.5UD IH; +ESOM20CA PO; -LEVO250T58 PO; +MOME0.132; -PRED10TA PO; +PRED10TA23 PO
[2018-01-30 18:58] LABS: HEMATOCRIT 37.6 % (42.0-52.0); HEMOGLOBIN 12.4 g/dl (14.0-17.9); MEAN CORPUSCULAR HEMOGLOBIN 33.1 PG (27.0-31.0); MEAN CORPUSCULAR VOLUME 100.2 FL (78-98); MEAN PLATELET VOLUME 7.3 FL (7.4-10.4); PLATELET COUNT 159 X10'3 (140-440); RED BLOOD COUNT 3.75 X10'6 (4.70-6.10); RED CELL DISTRIBUTION WIDTH 15.1 % (11.5-14.5)
[2018-01-30 19:08] LABS: PARTIAL THROMBOPLASTIN TIME 34 SECONDS (22-32); PROTHROMBIN TIME 10.2 SECONDS (9.0-12.0)
[2018-01-30 19:23] LABS: ALANINE AMINOTRANSFERASE 24 U/L (12-78); ALBUMIN 3.7 G/DL (3.4-5.0); ALKALINE PHOSPHATASE 89 IU/L (46-116); ANION GAP 10 (8-16); ASPARTATE AMINO TRANSFERASE 13 U/L (10-37); BILIRUBIN,TOTAL 1.2 MG/DL (0.1-1.0); BLOOD UREA NITROGEN 18 MG/DL (7-18); BUN/CREATININE RATIO 14.6 (5.4-32.0); CALCIUM 9.2 MG/DL (8.5-10.1); CHLORIDE 98 MMOL/L (99-107); CREATININE 1.23 MG/DL (0.60-1.10); GLUCOSE 131 MG/DL (70-104); SODIUM 135 MMOL/L (135-145); TOTAL CARBON DIOXIDE 27.5 MMOL/L (24-32); TOTAL PROTEIN 7.4 G/DL (6.4-8.2); eGFR 59 ML/MIN
[2018-01-30 19:34] LABS: WHITE BLOOD COUNT 137.1 X10'3 (4.5-11.0)
[2018-01-30] MEDS ORDERED: normal saline 1000ML IV soln IVB ONE (20:20)
[2018-01-30] MEDS ORDERED: iohexol 350MG/ML 100ml bottle IV ONE ×2 (20:20→21:23)
[2018-01-30] MEDS ORDERED: levoFLOXACIN-Levaquin 750MG/D5 150 ML IV ONE (20:20)
[2018-01-30 20:30] LABS: CLARITY,URINE CLEAR (Clear); COLOR,URINE YELLOW (Yellow); GLUCOSE, URINE NEGATIVE (Neg); KETONES,URINE NEGATIVE (Neg); LEUKOCYTE ESTERASE ,URINE NEGATIVE (Neg); NITRITES, URINE NEGATIVE (Neg); OCCULT BLOOD,URINE NEGATIVE (Neg); PH,URINE 7.5 (4.8-8.0); PROTEIN,URINE 30 mg/dl (Neg); UROBILINOGEN,URINE 0.2 E.U/dL (0.2-1.0)
[2018-01-30] MEDS ORDERED: ondansetron/PF 4mg/2ml inj IV ONE (20:30)
[2018-01-30] MEDS ORDERED: morphine 4 MG/ML inj SYRINge IV ONE (20:30)
[2018-01-30 20:40] LABS: UA COLLECTION TYPE VOIDED
[2018-01-30 20:41] LABS: BACTERIA,URINE NONE SEEN /HPF (Neg); RBC,URINE 0-2 /HPF (0-2); SQUAMOUS EPITHELIAL CELL,UR FEW /LPF (FEW); WBC,URINE NONE SEEN /HPF (0-4)
[2018-01-30 20:49] LABS: ANISOCYTOSIS 1+; PLATELET ESTIMATE NORMAL; TOTAL CELLS COUNTED 100
[2018-01-30 20:50] LABS: SMUDGE CELLS 3+; STOMATOCYTES 1+
[2018-01-30] MEDS ORDERED: LEVO750T21 PO (22:38)
[2018-01-30 23:05] VITALS: BP 100/60
== END 2018-01-30 23:06 | disposition home or self-care (01) ==
LOC: ER 18:26
DX: J18.9 Pneumonia, unspecified organism (principal); J44.0 Chronic obstructive pulmonary disease with (acute) lower respiratory infection; K21.9 Gastro-esophageal reflux disease without esophagitis; I11.0 Hypertensive heart disease with heart failure; I50.9 Heart failure, unspecified; Z79.82 Long term (current) use of aspirin; Z98.890 Other specified postprocedural states; Z79.899 Other long term (current) drug therapy
CPT/HCPCS: 36415; 71046; 71275; 80053; 81001; 83605; 83880; 84145; 84484; 85025; 85610; 85730; 87040; 87070; 87077; 87185; 93005; 96365; 96366; 96375; 99285; J1956; J2270; J2405; J7030; Q9967

== ENCOUNTER 2018-02-02 11:13 | Inpatient (IN) | payer OTHER, MEDICARE ==
[~2018-02-02] VITALS: Ht 188 cm; Wt 112.0 kg
[~2018-02-02 11:13] MED LIST changes: +LEVO750T21 PO
[2018-02-02] MEDS ORDERED: normal saline 1000ML IV soln IV ONE (11:30)
[2018-02-02] MEDS ORDERED: ipratropium/albuterol 3ml nebule NEB ONE (11:30)
[2018-02-02] MEDS ORDERED: levoFLOXACIN-Levaquin 750MG/D5 150 ML IV ONE (11:30)
[2018-02-02 12:09] LABS: HEMATOCRIT 30.8 % (42.0-52.0); HEMOGLOBIN 10.5 g/dl (14.0-17.9); MEAN CORPUSCULAR HEMOGLOBIN 33.5 PG (27.0-31.0); MEAN CORPUSCULAR HGB CONC 34.1 % (33.0-36.5); MEAN CORPUSCULAR VOLUME 98.1 FL (78-98); MEAN PLATELET VOLUME 7.6 FL (7.4-10.4); PLATELET COUNT 117 X10'3 (140-440); RED BLOOD COUNT 3.14 X10'6 (4.70-6.10); RED CELL DISTRIBUTION WIDTH 15.3 % (11.5-14.5)
[2018-02-02 12:23] LABS: ALANINE AMINOTRANSFERASE 10 U/L (12-78); ALBUMIN 2.8 G/DL (3.4-5.0); ALBUMIN/GLOBULIN RATIO 0.6 (1.1-1.5); ALKALINE PHOSPHATASE 82 IU/L (46-116); ANION GAP 8 (8-16); ASPARTATE AMINO TRANSFERASE 11 U/L (10-37); BILIRUBIN,TOTAL 0.4 MG/DL (0.1-1.0); BLOOD UREA NITROGEN 19 MG/DL (7-18); BUN/CREATININE RATIO 13.2 (5.4-32.0); CHLORIDE 97 MMOL/L (99-107); CREATININE 1.44 MG/DL (0.60-1.10); GLUCOSE 124 MG/DL (70-104); MAGNESIUM 1.5 MG/DL (1.5-2.4); SODIUM 133 MMOL/L (135-145); TOTAL CARBON DIOXIDE 27.6 MMOL/L (24-32); TOTAL PROTEIN 7.2 G/DL (6.4-8.2); eGFR 49 ML/MIN
[2018-02-02] MEDS ORDERED: morphine 4 MG/ML inj SYRINge IV ONE (12:25)
[2018-02-02 13:28] LABS: TOTAL CELLS COUNTED 100
[2018-02-02 13:30] LABS: PLATELET ESTIMATE DECREASED
[2018-02-02 13:31] LABS: ANISOCYTOSIS FEW; SMUDGE CELLS 4+; SPHEROCYTES FEW
[2018-02-02] MEDS ORDERED: acetaminophen 325mg tablet PO PRN (13:45)
[2018-02-02] MEDS ORDERED: mag hydrox/Alum hydrox/simeth 30ml oral suspension PO PRN (13:45)
[2018-02-02] MEDS ORDERED: magnesium hydroxide 30ml (MOM) UD suspension PO PRN (13:45)
[2018-02-02 14:01] LABS: CLARITY,URINE CLEAR (Clear); COLOR,URINE YELLOW (Yellow); GLUCOSE, URINE NEGATIVE (Neg); KETONES,URINE NEGATIVE (Neg); LEUKOCYTE ESTERASE ,URINE NEGATIVE (Neg); NITRITES, URINE NEGATIVE (Neg); OCCULT BLOOD,URINE TRACE-INTACT (Neg); PH,URINE 5.5 (4.8-8.0); PROTEIN,URINE TRACE mg/dl (Neg); UROBILINOGEN,URINE 0.2 E.U/dL (0.2-1.0)
[2018-02-02 14:07] LABS: UA COLLECTION TYPE CLN CATCH MIDSTREAM
[2018-02-02 14:10] LABS: BACTERIA,URINE NONE SEEN /HPF (Neg); RBC,URINE 0-2 /HPF (0-2); SQUAMOUS EPITHELIAL CELL,UR FEW /LPF (FEW); WBC,URINE NONE SEEN /HPF (0-4)
[2018-02-02] MEDS: piperacillin/tazo 3.375gm/50ml 50 ML IV SCH ×2 (14:12→19:56)
[2018-02-02] MEDS: normal saline 1000ml 1,000 ML IV SCH (14:57)
[2018-02-02] MEDS: LORazepam 0.5 MG tablet PO SCH (16:00)
[2018-02-02] MEDS: HYDROcodone/acetaminophen 5mg/325mg tablet PO PRN (16:09)
[2018-02-02] MEDS: ipratropium/albuterol 3ml nebule NEB PRN ×2 (18:56→23:04)
[2018-02-02] MEDS: oxyCODONE/APAP 10/325mg tablet PO PRN (19:52)
[2018-02-02] MEDS: carVEDilol 3.125mg tablet PO SCH (19:56)
[2018-02-02] MEDS ORDERED: heparin, porcine 5000 units/ml vial SQ SCH (20:00)
[2018-02-02] MEDS: ondansetron/PF 4mg/2ml inj IV PRN (20:22)
[2018-02-02] MEDS: gabapentin 300mg capsule PO SCH (21:17)
[2018-02-02] MEDS: temazepam 15mg capsule PO PRN (22:29)
[2018-02-03] MEDS: normal saline 1000ml 1,000 ML IV SCH ×2 (00:13→14:04)
[2018-02-03] MEDS: LORazepam 0.5 MG tablet PO SCH ×4 (00:15→23:47)
[2018-02-03] MEDS ORDERED: salt irrigation nasal spray 45 ML SPRAY NS PRN (01:30)
[2018-02-03] MEDS: piperacillin/tazo 3.375gm/50ml 50 ML IV SCH ×4 (01:43→20:44)
[2018-02-03] MEDS: oxyCODONE/APAP 10/325mg tablet PO PRN ×4 (01:44→20:58)
[2018-02-03] MEDS: temazepam 15mg capsule PO PRN (01:58)
[2018-02-03] MEDS: ipratropium/albuterol 3ml nebule NEB PRN ×3 (02:55→21:27)
[2018-02-03 07:21] LABS: BASOPHILS # (AUTO) 0.4 X10'3 (0-0.2); EOSINOPHILS # (AUTO) 0.2 X10'3 (0-0.9); EOSINOPHILS % (AUTO) 0.5 % (0-6); HEMATOCRIT 29.2 % (42.0-52.0); HEMOGLOBIN 9.8 g/dl (14.0-17.9); LYMPHOCYTES # (AUTO) 37.8 X10'3 (1.1-4.8); LYMPHOCYTES % (AUTO) 87.4 % (21-51); MEAN CORPUSCULAR HEMOGLOBIN 33.3 PG (27.0-31.0); MEAN CORPUSCULAR HGB CONC 33.6 % (33.0-36.5); MEAN CORPUSCULAR VOLUME 99.1 FL (78-98); MEAN PLATELET VOLUME 7.5 FL (7.4-10.4); MONOCYTES # (AUTO) 0.4 X10'3 (0-0.9); MONOCYTES % (AUTO) 0.9 % (2-12); NEUTROPHILS # (AUTO) 4.4 X10'3 (1.8-7.7); NEUTROPHILS % (AUTO) 10.2 % (42-75); PLATELET COUNT 106 X10'3 (140-440); RED BLOOD COUNT 2.94 X10'6 (4.70-6.10); RED CELL DISTRIBUTION WIDTH 15.5 % (11.5-14.5)
[2018-02-03 07:34] LABS: WHITE BLOOD COUNT 43.2 X10'3 (4.5-11.0)
[2018-02-03 07:40] LABS: ALANINE AMINOTRANSFERASE 20 U/L (12-78); ALBUMIN 2.6 G/DL (3.4-5.0); ALBUMIN/GLOBULIN RATIO 0.6 (1.1-1.5); ALKALINE PHOSPHATASE 110 IU/L (46-116); ANION GAP 12 (8-16); ASPARTATE AMINO TRANSFERASE 14 U/L (10-37); BILIRUBIN,TOTAL 0.5 MG/DL (0.1-1.0); BLOOD UREA NITROGEN 13 MG/DL (7-18); BUN/CREATININE RATIO 11.8 (5.4-32.0); CALCIUM 8.2 MG/DL (8.5-10.1); CHLORIDE 97 MMOL/L (99-107); GLUCOSE 101 MG/DL (70-104); POTASSIUM 3.9 MMOL/L (3.5-5.1); SODIUM 134 MMOL/L (135-145); TOTAL CARBON DIOXIDE 25.2 MMOL/L (24-32); TOTAL PROTEIN 6.8 G/DL (6.4-8.2); eGFR 67 ML/MIN
[2018-02-03 08:15] VITALS: BP 119/85
[2018-02-03] MEDS: potassium chloride 10mEq ER tablet PO SCH (09:01)
[2018-02-03] MEDS: carVEDilol 3.125mg tablet PO SCH (09:02)
[2018-02-03] MEDS: furosemide 20MG tablet PO SCH (09:02)
[2018-02-03] MEDS: aspirin 81mg tablet.DR PO SCH (09:02)
[2018-02-03] MEDS: magnesium oxide 400mg tablet PO SCH (09:02)
[2018-02-03 11:55] LABS: BANDS% (MANUAL) 1 % (0-10); MONOCYTES % (MANUAL) 1 % (2-12); NEUTROPHILS % (MANUAL) 6 % (42-75); PLATELET ESTIMATE DECREASED; TOTAL CELLS COUNTED 100
[2018-02-03 11:57] LABS: SMUDGE CELLS 3+
[2018-02-03 11:58] LABS: LYMPHOCYTES % (MANUAL) 92 % (21-51)
[2018-02-03] MEDS ORDERED: magnesium Cl slow-release 64mg tablet PO PRN (16:50)
[2018-02-03] MEDS ORDERED: magnesium 4gm in 100ml NS 100 ML IV PRN (16:50)
[2018-02-03] MEDS ORDERED: potassium Cl 40MEQ/NS 500ml 500 ML IV PRN ×2 (16:50)
[2018-02-03] MEDS ORDERED: potassium Cl 20 mEq SR tablet PO PRN ×2 (16:50)
[2018-02-03] MEDS ORDERED: magnesium 2GM in 50ml NS 50 ML IV PRN (16:50)
[2018-02-03 17:12] LABS: INR 0.9 INR; PROTHROMBIN TIME 9.8 SECONDS (9.0-12.0)
[2018-02-03 18:00] VITALS: BP 127/78
[2018-02-03] MEDS ORDERED: potassium Cl 20 mEq SR tablet PO STA (20:08)
[2018-02-03] MEDS ORDERED: magnesium oxide 400mg tablet PO ONE (20:10)
[2018-02-03 20:11] VITALS: BP 130/74
[2018-02-03] MEDS: gabapentin 300mg capsule PO SCH (20:44)
[2018-02-03] MEDS: carvedilol 6.25mg tablet PO SCH (20:44)
[2018-02-03] MEDS: ondansetron/PF 4mg/2ml inj IV PRN (20:58)
[2018-02-03 22:00] VITALS: BP 102/52
[2018-02-04] MEDS: oxyCODONE/APAP 10/325mg tablet PO PRN ×5 (01:02→20:09)
[2018-02-04] MEDS: normal saline 1000ml 1,000 ML IV SCH ×4 (01:04→20:15)
[2018-02-04] MEDS: piperacillin/tazo 3.375gm/50ml 50 ML IV SCH ×4 (01:07→20:08)
[2018-02-04] MEDS: ipratropium/albuterol 3ml nebule NEB PRN ×4 (04:31→20:35)
[2018-02-04 06:00] VITALS: BP 117/66
[2018-02-04 06:28] LABS: BASOPHILS # (AUTO) 0.3 X10'3 (0-0.2); BASOPHILS % (AUTO) 0.8 % (0-1); EOSINOPHILS # (AUTO) 0.3 X10'3 (0-0.9); EOSINOPHILS % (AUTO) 0.7 % (0-6); HEMATOCRIT 30.2 % (42.0-52.0); LYMPHOCYTES # (AUTO) 34.1 X10'3 (1.1-4.8); MEAN CORPUSCULAR HEMOGLOBIN 32.9 PG (27.0-31.0); MEAN CORPUSCULAR HGB CONC 33.1 % (33.0-36.5); MEAN CORPUSCULAR VOLUME 99.3 FL (78-98); MEAN PLATELET VOLUME 8.1 FL (7.4-10.4); MONOCYTES # (AUTO) 0.2 X10'3 (0-0.9); MONOCYTES % (AUTO) 0.6 % (2-12); NEUTROPHILS # (AUTO) 4.3 X10'3 (1.8-7.7); NEUTROPHILS % (AUTO) 10.9 % (42-75); PLATELET COUNT 112 X10'3 (140-440); RED BLOOD COUNT 3.04 X10'6 (4.70-6.10); RED CELL DISTRIBUTION WIDTH 15.3 % (11.5-14.5)
[2018-02-04 06:33] LABS: ALANINE AMINOTRANSFERASE 21 U/L (12-78); ALBUMIN 2.6 G/DL (3.4-5.0); ALBUMIN/GLOBULIN RATIO 0.6 (1.1-1.5); ALKALINE PHOSPHATASE 106 IU/L (46-116); ANION GAP 7 (8-16); ASPARTATE AMINO TRANSFERASE 15 U/L (10-37); BILIRUBIN,TOTAL 0.4 MG/DL (0.1-1.0); BLOOD UREA NITROGEN 10 MG/DL (7-18); BUN/CREATININE RATIO 7.8 (5.4-32.0); CALCIUM 8.5 MG/DL (8.5-10.1); CHLORIDE 98 MMOL/L (99-107); CREATININE 1.29 MG/DL (0.60-1.10); GLUCOSE 118 MG/DL (70-104); MAGNESIUM 1.7 MG/DL (1.5-2.4); POTASSIUM 4.4 MMOL/L (3.5-5.1); SODIUM 135 MMOL/L (135-145); TOTAL PROTEIN 6.8 G/DL (6.4-8.2); eGFR 56 ML/MIN
[2018-02-04] MEDS: carvedilol 6.25mg tablet PO SCH ×2 (08:29→20:08)
[2018-02-04] MEDS: aspirin 81mg tablet.DR PO SCH (08:29)
[2018-02-04] MEDS: LORazepam 0.5 MG tablet PO SCH ×2 (08:29→15:25)
[2018-02-04] MEDS: potassium chloride 10mEq ER tablet PO SCH (08:29)
[2018-02-04] MEDS: magnesium oxide 400mg tablet PO SCH (08:30)
[2018-02-04] MEDS: furosemide 20MG tablet PO SCH (08:30)
[2018-02-04 08:49] LABS: WHITE BLOOD COUNT 39.2 X10'3 (4.5-11.0)
[2018-02-04 08:51] LABS: PLATELET ESTIMATE DECREASED; TOTAL CELLS COUNTED 100
[2018-02-04 08:56] LABS: SMUDGE CELLS 3+
[2018-02-04 10:00] VITALS: BP 108/70
[2018-02-04 14:30] VITALS: BP 106/62
[2018-02-04] MEDS: ondansetron/PF 4mg/2ml inj IV PRN ×2 (15:25→20:08)
[2018-02-04 18:30] VITALS: BP 103/63
[2018-02-04] MEDS: lactobacillus rhamnosus 10,000 MMU CELLS/CAPSULE PO SCH (20:08)
[2018-02-04] MEDS: gabapentin 300mg capsule PO SCH (20:08)
[2018-02-04 22:00] VITALS: BP 109/68
[2018-02-05] MEDS: LORazepam 0.5 MG tablet PO SCH ×4 (00:11→23:51)
[2018-02-05] MEDS: oxyCODONE/APAP 10/325mg tablet PO PRN ×6 (00:12→21:33)
[2018-02-05] MEDS: ipratropium/albuterol 3ml nebule NEB PRN ×3 (00:19→14:32)
[2018-02-05] MEDS: piperacillin/tazo 3.375gm/50ml 50 ML IV SCH ×2 (02:02→09:23)
[2018-02-05 06:00] VITALS: BP 119/66
[2018-02-05 06:33] LABS: BASOPHILS # (AUTO) 0.1 X10'3 (0-0.2); BASOPHILS % (AUTO) 0.4 % (0-1); EOSINOPHILS # (AUTO) 0.2 X10'3 (0-0.9); EOSINOPHILS % (AUTO) 0.6 % (0-6); HEMATOCRIT 28.2 % (42.0-52.0); HEMOGLOBIN 9.4 g/dl (14.0-17.9); LYMPHOCYTES # (AUTO) 31.2 X10'3 (1.1-4.8); LYMPHOCYTES % (AUTO) 87.6 % (21-51); MEAN CORPUSCULAR HEMOGLOBIN 32.9 PG (27.0-31.0); MEAN CORPUSCULAR HGB CONC 33.2 % (33.0-36.5); MEAN CORPUSCULAR VOLUME 98.9 FL (78-98); MEAN PLATELET VOLUME 7.9 FL (7.4-10.4); MONOCYTES # (AUTO) 0.2 X10'3 (0-0.9); MONOCYTES % (AUTO) 0.6 % (2-12); NEUTROPHILS # (AUTO) 3.8 X10'3 (1.8-7.7); NEUTROPHILS % (AUTO) 10.8 % (42-75); PLATELET COUNT 116 X10'3 (140-440); RED BLOOD COUNT 2.86 X10'6 (4.70-6.10); RED CELL DISTRIBUTION WIDTH 14.9 % (11.5-14.5)
[2018-02-05 06:40] LABS: WHITE BLOOD COUNT 35.7 X10'3 (4.5-11.0)
[2018-02-05 06:52] LABS: ALANINE AMINOTRANSFERASE 24 U/L (12-78); ALBUMIN 2.5 G/DL (3.4-5.0); ALBUMIN/GLOBULIN RATIO 0.7 (1.1-1.5); ALKALINE PHOSPHATASE 93 IU/L (46-116); ANION GAP 8 (8-16); ASPARTATE AMINO TRANSFERASE 14 U/L (10-37); BILIRUBIN,TOTAL 0.3 MG/DL (0.1-1.0); BLOOD UREA NITROGEN 10 MG/DL (7-18); CALCIUM 8.3 MG/DL (8.5-10.1); CHLORIDE 99 MMOL/L (99-107); GLUCOSE 111 MG/DL (70-104); MAGNESIUM 1.6 MG/DL (1.5-2.4); POTASSIUM 4.1 MMOL/L (3.5-5.1); SODIUM 135 MMOL/L (135-145); TOTAL CARBON DIOXIDE 28.2 MMOL/L (24-32); TOTAL PROTEIN 6.3 G/DL (6.4-8.2); eGFR 75 ML/MIN
[2018-02-05 07:22] LABS: PLATELET ESTIMATE DECREASED; TOTAL CELLS COUNTED 100
[2018-02-05] MEDS: aspirin 81mg tablet.DR PO SCH (09:23)
[2018-02-05] MEDS: magnesium oxide 400mg tablet PO SCH (09:23)
[2018-02-05] MEDS: carvedilol 6.25mg tablet PO SCH ×2 (09:23→20:41)
[2018-02-05] MEDS: furosemide 20MG tablet PO SCH (09:24)
[2018-02-05] MEDS: lactobacillus rhamnosus 10,000 MMU CELLS/CAPSULE PO SCH ×2 (09:24→20:41)
[2018-02-05] MEDS: normal saline 1000ml 1,000 ML IV SCH ×2 (09:29→20:42)
[2018-02-05] MEDS: potassium chloride 10mEq ER tablet PO SCH (09:29)
[2018-02-05 10:00] VITALS: BP 116/81
[2018-02-05 13:49] VITALS: BP 100/61
[2018-02-05] MEDS: piperacillin/tazo 4.5gm/100ml 100 ML IV SCH ×2 (17:19→23:51)
[2018-02-05 18:00] VITALS: BP 111/73
[2018-02-05] MEDS: gabapentin 300mg capsule PO SCH (20:41)
[2018-02-05] MEDS: temazepam 15mg capsule PO PRN (21:33)
[2018-02-05] MEDS: ondansetron/PF 4mg/2ml inj IV PRN (21:33)
[2018-02-05 22:00] VITALS: BP 106/74
[2018-02-06 06:00] VITALS: BP 119/74
[2018-02-06 06:36] LABS: HEMATOCRIT 29.4 % (42.0-52.0); HEMOGLOBIN 9.7 g/dl (14.0-17.9); MEAN CORPUSCULAR HEMOGLOBIN 32.6 PG (27.0-31.0); MEAN CORPUSCULAR VOLUME 98.8 FL (78-98); MEAN PLATELET VOLUME 8.3 FL (7.4-10.4); PLATELET COUNT 160 X10'3 (140-440); RED BLOOD COUNT 2.97 X10'6 (4.70-6.10); RED CELL DISTRIBUTION WIDTH 15.4 % (11.5-14.5)
[2018-02-06 06:49] LABS: WHITE BLOOD COUNT 45.5 X10'3 (4.5-11.0)
[2018-02-06 07:08] LABS: ALANINE AMINOTRANSFERASE 38 U/L (12-78); ALBUMIN 2.6 G/DL (3.4-5.0); ALBUMIN/GLOBULIN RATIO 0.7 (1.1-1.5); ALKALINE PHOSPHATASE 119 IU/L (46-116); ANION GAP 6 (8-16); ASPARTATE AMINO TRANSFERASE 28 U/L (10-37); BILIRUBIN,TOTAL 0.3 MG/DL (0.1-1.0); BLOOD UREA NITROGEN 8 MG/DL (7-18); BUN/CREATININE RATIO 7.3 (5.4-32.0); CALCIUM 8.4 MG/DL (8.5-10.1); CHLORIDE 101 MMOL/L (99-107); GLUCOSE 114 MG/DL (70-104); MAGNESIUM 1.6 MG/DL (1.5-2.4); POTASSIUM 4.6 MMOL/L (3.5-5.1); SODIUM 139 MMOL/L (135-145); TOTAL CARBON DIOXIDE 31.7 MMOL/L (24-32); TOTAL PROTEIN 6.4 G/DL (6.4-8.2); eGFR 67 ML/MIN
[2018-02-06] MEDS: lactobacillus rhamnosus 10,000 MMU CELLS/CAPSULE PO SCH ×2 (07:18→20:58)
[2018-02-06] MEDS: normal saline 1000ml 1,000 ML IV SCH ×2 (07:18→20:16)
[2018-02-06] MEDS: aspirin 81mg tablet.DR PO SCH (07:18)
[2018-02-06] MEDS: potassium chloride 10mEq ER tablet PO SCH (07:18)
[2018-02-06] MEDS: carvedilol 6.25mg tablet PO SCH ×2 (07:18→20:58)
[2018-02-06] MEDS: magnesium oxide 400mg tablet PO SCH (07:18)
[2018-02-06] MEDS: furosemide 20MG tablet PO SCH (07:18)
[2018-02-06] MEDS: LORazepam 0.5 MG tablet PO SCH ×3 (08:00→23:08)
[2018-02-06 08:19] LABS: PLATELET ESTIMATE NORMAL; TOTAL CELLS COUNTED 100
[2018-02-06 10:00] VITALS: BP 118/73
[2018-02-06] MEDS: piperacillin/tazo 4.5gm/100ml 100 ML IV SCH ×3 (10:10→23:08)
[2018-02-06] MEDS: ipratropium/albuterol 3ml nebule NEB PRN ×2 (11:41→21:19)
[2018-02-06] MEDS: HYDROcodone/acetaminophen 5mg/325mg tablet PO PRN ×2 (12:41→17:08)
[2018-02-06] MEDS: sucralfate 1gm/10ml UD suspension PO SCH ×2 (17:08→20:59)
[2018-02-06 18:00] VITALS: BP 112/65
[2018-02-06] MEDS: gabapentin 300mg capsule PO SCH (20:58)
[2018-02-06] MEDS: HYDROcodone/acetaminophen 10/325mg tab PO PRN (21:00)
[2018-02-06 22:00] VITALS: BP 111/77
[2018-02-07] MEDS: normal saline 1000ml 1,000 ML IV SCH ×3 (03:43→15:11)
[2018-02-07] MEDS: ipratropium/albuterol 3ml nebule NEB PRN ×3 (05:02→16:52)
[2018-02-07 06:00] VITALS: BP 148/84
[2018-02-07] MEDS: sucralfate 1gm/10ml UD suspension PO SCH ×4 (06:00→21:19)
[2018-02-07] MEDS: HYDROcodone/acetaminophen 10/325mg tab PO PRN ×3 (06:01→17:44)
[2018-02-07] MEDS: ondansetron/PF 4mg/2ml inj IV PRN (06:01)
[2018-02-07 06:33] LABS: HEMATOCRIT 27.9 % (42.0-52.0); HEMOGLOBIN 9.2 g/dl (14.0-17.9); MEAN CORPUSCULAR HEMOGLOBIN 32.4 PG (27.0-31.0); MEAN PLATELET VOLUME 7.9 FL (7.4-10.4); PLATELET COUNT 149 X10'3 (140-440); RED BLOOD COUNT 2.84 X10'6 (4.70-6.10); RED CELL DISTRIBUTION WIDTH 15.3 % (11.5-14.5)
[2018-02-07 06:39] LABS: WHITE BLOOD COUNT 45.8 X10'3 (4.5-11.0)
[2018-02-07 06:48] LABS: ALANINE AMINOTRANSFERASE 27 U/L (12-78); ALBUMIN 2.4 G/DL (3.4-5.0); ALBUMIN/GLOBULIN RATIO 0.7 (1.1-1.5); ALKALINE PHOSPHATASE 93 IU/L (46-116); ANION GAP 7 (8-16); ASPARTATE AMINO TRANSFERASE 18 U/L (10-37); BILIRUBIN,TOTAL 0.3 MG/DL (0.1-1.0); BLOOD UREA NITROGEN 8 MG/DL (7-18); BUN/CREATININE RATIO 7.3 (5.4-32.0); CALCIUM 8.1 MG/DL (8.5-10.1); CHLORIDE 100 MMOL/L (99-107); CREATININE 1.09 MG/DL (0.60-1.10); GLUCOSE 105 MG/DL (70-104); MAGNESIUM 1.5 MG/DL (1.5-2.4); POTASSIUM 3.5 MMOL/L (3.5-5.1); SODIUM 138 MMOL/L (135-145); TOTAL CARBON DIOXIDE 31.5 MMOL/L (24-32); eGFR 68 ML/MIN
[2018-02-07 07:07] LABS: ANISOCYTOSIS 1+; PLATELET ESTIMATE NORMAL; TOTAL CELLS COUNTED 100
[2018-02-07] MEDS: lactobacillus rhamnosus 10,000 MMU CELLS/CAPSULE PO SCH ×2 (07:31→19:31)
[2018-02-07] MEDS: potassium chloride 10mEq ER tablet PO SCH (07:31)
[2018-02-07] MEDS: magnesium oxide 400mg tablet PO SCH (07:31)
[2018-02-07] MEDS: LORazepam 0.5 MG tablet PO SCH ×2 (07:31→15:11)
[2018-02-07] MEDS: furosemide 20MG tablet PO SCH (07:31)
[2018-02-07] MEDS: aspirin 81mg tablet.DR PO SCH (07:31)
[2018-02-07] MEDS: piperacillin/tazo 4.5gm/100ml 100 ML IV SCH ×2 (07:31→15:12)
[2018-02-07] MEDS: carvedilol 6.25mg tablet PO SCH ×2 (07:42→19:31)
[2018-02-07 11:00] VITALS: BP 101/71
[2018-02-07 15:09] VITALS: BP 112/71
[2018-02-07 17:20] VITALS: BP 132/80
[2018-02-07] MEDS ORDERED: magnesium 1 gm/2ml inj. 1 GM in normal saline 50ml IV soln 48 ML IV ONE (17:20)
[2018-02-07] MEDS ORDERED: magnesium 2GM in 50ml NS 25 ML IV SCH (17:40)
[2018-02-07] MEDS ORDERED: iohexol 350MG/ML 100ml bottle IV ONE ×2 (17:57→19:48)
[2018-02-07 18:30] VITALS: BP 120/77
[2018-02-07] MEDS ORDERED: furosemide 40mg/4ml inj IV ONE (19:05)
[2018-02-07] MEDS: furosemide 40mg/4ml inj IV SCH ×2 (19:39→20:00)
[2018-02-07] MEDS: gabapentin 300mg capsule PO SCH (21:19)
[2018-02-07] MEDS: oxyCODONE/APAP 10/325mg tablet PO PRN (21:19)
[2018-02-08] VITALS: BP 110/66
[2018-02-08] MEDS: LORazepam 0.5 MG tablet PO SCH ×4 (01:15→23:37)
[2018-02-08] MEDS: piperacillin/tazo 4.5gm/100ml 100 ML IV SCH ×4 (01:17→23:37)
[2018-02-08 05:15] VITALS: BP 110/73
[2018-02-08] MEDS: HYDROcodone/acetaminophen 10/325mg tab PO PRN ×2 (05:27→11:44)
[2018-02-08 05:47] LABS: MAGNESIUM 1.9 MG/DL (1.5-2.4); POTASSIUM 3.5 MMOL/L (3.5-5.1)
[2018-02-08 07:00] VITALS: BP 111/68
[2018-02-08] MEDS: furosemide 40mg/4ml inj IV SCH ×2 (08:15→19:50)
[2018-02-08] MEDS: potassium chloride 10mEq ER tablet PO SCH (08:15)
[2018-02-08] MEDS: magnesium oxide 400mg tablet PO SCH (08:15)
[2018-02-08] MEDS: aspirin 81mg tablet.DR PO SCH (08:15)
[2018-02-08] MEDS: sucralfate 1gm/10ml UD suspension PO SCH ×4 (08:15→19:46)
[2018-02-08] MEDS: lactobacillus rhamnosus 10,000 MMU CELLS/CAPSULE PO SCH ×2 (08:15→19:46)
[2018-02-08] MEDS: carvedilol 6.25mg tablet PO SCH ×2 (08:15→19:47)
[2018-02-08 10:49] VITALS: BP 106/64
[2018-02-08 12:45] LABS: HEMATOCRIT 30.3 % (42.0-52.0); HEMOGLOBIN 9.9 g/dl (14.0-17.9); MEAN CORPUSCULAR HEMOGLOBIN 32.2 PG (27.0-31.0); MEAN CORPUSCULAR HGB CONC 32.6 % (33.0-36.5); MEAN PLATELET VOLUME 7.3 FL (7.4-10.4); PLATELET COUNT 207 X10'3 (140-440); RED BLOOD COUNT 3.06 X10'6 (4.70-6.10); RED CELL DISTRIBUTION WIDTH 15.8 % (11.5-14.5)
[2018-02-08 12:49] LABS: WHITE BLOOD COUNT 51.1 X10'3 (4.5-11.0)
[2018-02-08 13:02] LABS: ALANINE AMINOTRANSFERASE 24 U/L (12-78); ALBUMIN 2.7 G/DL (3.4-5.0); ALBUMIN/GLOBULIN RATIO 0.8 (1.1-1.5); ALKALINE PHOSPHATASE 100 IU/L (46-116); ANION GAP 2 (8-16); ASPARTATE AMINO TRANSFERASE 15 U/L (10-37); BILIRUBIN,TOTAL 0.3 MG/DL (0.1-1.0); BLOOD UREA NITROGEN 7 MG/DL (7-18); BUN/CREATININE RATIO 6.3 (5.4-32.0); CALCIUM 8.5 MG/DL (8.5-10.1); CHLORIDE 98 MMOL/L (99-107); CREATININE 1.11 MG/DL (0.60-1.10); GLUCOSE 106 MG/DL (70-104); POTASSIUM 3.8 MMOL/L (3.5-5.1); SODIUM 139 MMOL/L (135-145); TOTAL CARBON DIOXIDE 39.1 MMOL/L (24-32); TOTAL PROTEIN 6.3 G/DL (6.4-8.2); eGFR 66 ML/MIN
[2018-02-08 13:10] LABS: ANISOCYTOSIS 1+; PLATELET ESTIMATE NORMAL; TOTAL CELLS COUNTED 100
[2018-02-08 13:11] LABS: POLYCHROMASIA 1+; STOMATOCYTES 2+
[2018-02-08] MEDS: ipratropium/albuterol 3ml nebule NEB PRN ×2 (15:50→21:10)
[2018-02-08 18:00] VITALS: BP 103/65
[2018-02-08] MEDS: gabapentin 300mg capsule PO SCH (19:46)
[2018-02-08] MEDS: oxyCODONE/APAP 10/325mg tablet PO PRN (19:47)
[2018-02-08] MEDS: ciprofloxacin 500MG tablet PO SCH (19:49)
[2018-02-09] VITALS: BP 102/65
[2018-02-09] MEDS: ipratropium/albuterol 3ml nebule NEB PRN ×3 (05:54→17:39)
[2018-02-09] MEDS: sucralfate 1gm/10ml UD suspension PO SCH ×4 (07:00→22:20)
[2018-02-09 07:03] VITALS: BP 118/72
[2018-02-09] MEDS: piperacillin/tazo 4.5gm/100ml 100 ML IV SCH ×3 (09:23→23:55)
[2018-02-09] MEDS: furosemide 40mg/4ml inj IV SCH ×2 (09:23→22:30)
[2018-02-09] MEDS: magnesium oxide 400mg tablet PO SCH (09:32)
[2018-02-09] MEDS: lactobacillus rhamnosus 10,000 MMU CELLS/CAPSULE PO SCH ×2 (09:33→22:20)
[2018-02-09] MEDS: carvedilol 6.25mg tablet PO SCH ×2 (09:33→22:29)
[2018-02-09] MEDS: LORazepam 0.5 MG tablet PO SCH ×3 (09:34→23:55)
[2018-02-09] MEDS: aspirin 81mg tablet.DR PO SCH (09:34)
[2018-02-09] MEDS: potassium chloride 10mEq ER tablet PO SCH (09:34)
[2018-02-09] MEDS: ciprofloxacin 250mg tablet PO SCH ×2 (09:38→22:20)
[2018-02-09] MEDS: HYDROcodone/acetaminophen 10/325mg tab PO PRN ×2 (09:38→22:22)
[2018-02-09 11:00] VITALS: BP 102/65
[2018-02-09] MEDS: oxyCODONE/APAP 10/325mg tablet PO PRN (15:05)
[2018-02-09 18:00] VITALS: BP 107/61
[2018-02-09] MEDS: gabapentin 300mg capsule PO SCH (22:21)
[2018-02-10] VITALS: BP 112/63
[2018-02-10] MEDS: temazepam 15mg capsule PO PRN (01:41)
[2018-02-10] MEDS: sucralfate 1gm/10ml UD suspension PO SCH ×4 (07:51→21:21)
[2018-02-10] MEDS: carvedilol 6.25mg tablet PO SCH ×2 (07:51→21:20)
[2018-02-10] MEDS: aspirin 81mg tablet.DR PO SCH (07:51)
[2018-02-10] MEDS: LORazepam 0.5 MG tablet PO SCH ×2 (07:51→16:28)
[2018-02-10] MEDS: potassium chloride 10mEq ER tablet PO SCH (07:51)
[2018-02-10] MEDS: lactobacillus rhamnosus 10,000 MMU CELLS/CAPSULE PO SCH ×2 (07:51→21:20)
[2018-02-10] MEDS: magnesium oxide 400mg tablet PO SCH (07:51)
[2018-02-10] MEDS: piperacillin/tazo 4.5gm/100ml 100 ML IV SCH ×2 (07:52→16:28)
[2018-02-10] MEDS: furosemide 40mg/4ml inj IV SCH ×2 (07:52→21:19)
[2018-02-10] MEDS: HYDROcodone/acetaminophen 10/325mg tab PO PRN ×2 (07:52→21:32)
[2018-02-10 08:00] VITALS: BP 113/62
[2018-02-10] MEDS: ciprofloxacin 250mg tablet PO SCH ×2 (08:00→21:20)
[2018-02-10] MEDS: ciprofloxacin 500MG tablet PO SCH (09:08)
[2018-02-10] MEDS: ipratropium/albuterol 3ml nebule NEB PRN ×3 (09:34→20:29)
[2018-02-10 11:00] VITALS: BP 104/64
[2018-02-10] MEDS: oxyCODONE/APAP 10/325mg tablet PO PRN (11:56)
[2018-02-10 18:00] VITALS: BP 119/70
[2018-02-10] MEDS: gabapentin 300mg capsule PO SCH (21:21)
[2018-02-11] VITALS: BP 115/74
[2018-02-11] MEDS: temazepam 15mg capsule PO PRN (00:04)
[2018-02-11] MEDS: LORazepam 0.5 MG tablet PO SCH ×3 (00:04→15:35)
[2018-02-11] MEDS: piperacillin/tazo 4.5gm/100ml 100 ML IV SCH (00:04)
[2018-02-11] MEDS: HYDROcodone/acetaminophen 10/325mg tab PO PRN ×2 (05:41→16:47)
[2018-02-11 07:00] VITALS: BP 107/64
[2018-02-11] MEDS: sucralfate 1gm/10ml UD suspension PO SCH ×3 (07:00→15:35)
[2018-02-11] MEDS: ipratropium/albuterol 3ml nebule NEB PRN ×2 (07:22→10:48)
[2018-02-11] MEDS: oxyCODONE/APAP 10/325mg tablet PO PRN (10:02)
[2018-02-11] MEDS: furosemide 40mg/4ml inj IV SCH ×2 (10:35→19:26)
[2018-02-11] MEDS: ciprofloxacin 250mg tablet PO SCH ×2 (10:40→19:26)
[2018-02-11] MEDS: lactobacillus rhamnosus 10,000 MMU CELLS/CAPSULE PO SCH ×2 (10:41→19:26)
[2018-02-11] MEDS: magnesium oxide 400mg tablet PO SCH (10:41)
[2018-02-11] MEDS: aspirin 81mg tablet.DR PO SCH (10:41)
[2018-02-11] MEDS: potassium chloride 10mEq ER tablet PO SCH (10:42)
[2018-02-11] MEDS: carvedilol 6.25mg tablet PO SCH ×2 (10:42→19:26)
[2018-02-11 11:00] VITALS: BP 107/65
[2018-02-11] MEDS ORDERED: CIPR-230 PO (17:11)
== END 2018-02-11 19:40 | disposition home or self-care (01) | DRG 871 ==
LOC: ER 11:13 → ED HOLD 13:43 → ORTHO 4S 02-03 08:15 → CMPBEDREQ 02-03 19:43 → ORTHO 4S 02-07 07:59 → SUR 3N 02-07 14:42 → ORTHO 4S 02-07 14:44 → SUR 3N 02-07 14:55
PROVIDERS: ADMIT Family Medicine; ATTEND Family Medicine
PROC: B32T1ZZ Computerized Tomography (CT Scan) of Left Pulmonary Artery using Low Osmolar Contrast (ICD-10-PCS; principal; 2018-02-07)
PROC: B3201ZZ Computerized Tomography (CT Scan) of Thoracic Aorta using Low Osmolar Contrast (ICD-10-PCS; 2018-02-07)
PROC: B32S1ZZ Computerized Tomography (CT Scan) of Right Pulmonary Artery using Low Osmolar Contrast (ICD-10-PCS; 2018-02-07)
PROC: BF2 Imaging, Hepatobiliary System and Pancreas, Computerized Tomography (CT Scan) (ICD-10-PCS; 2018-02-07)
DX: A41.9 Sepsis, unspecified organism (principal); J15.1 Pneumonia due to Pseudomonas; J96.01 Acute respiratory failure with hypoxia; I47.2 Ventricular tachycardia; N17.9 Acute kidney failure, unspecified; C91.10 Chronic lymphocytic leukemia of B-cell type not having achieved remission; I11.0 Hypertensive heart disease with heart failure; I42.0 Dilated cardiomyopathy; E83.42 Hypomagnesemia; I50.9 Heart failure, unspecified; J44.1 Chronic obstructive pulmonary disease with (acute) exacerbation; R04.2 Hemoptysis; J44.0 Chronic obstructive pulmonary disease with (acute) lower respiratory infection; J84.10 Pulmonary fibrosis, unspecified; F41.1 Generalized anxiety disorder; G47.00 Insomnia, unspecified; I45.81 Long QT syndrome; K21.9 Gastro-esophageal reflux disease without esophagitis; Z99.81 Dependence on supplemental oxygen; Z90.49 Acquired absence of other specified parts of digestive tract; Z88.8 Allergy status to other drugs, medicaments and biological substances; Z79.899 Other long term (current) drug therapy; Z87.891 Personal history of nicotine dependence; Z80.51 Family history of malignant neoplasm of kidney; Z82.49 Family history of ischemic heart disease and other diseases of the circulatory system
CPT/HCPCS: 36415; 71045; 71275; 80053; 81001; 83605; 83735; 83880; 84132; 84145; 85025; 85610; 87040; 87070; 93005; 94640; 94760; 96365; 96375; 99285; A6258; J1940; J1956; J2270; J2405; J2543; J3475; J7030; Q9967

== ENCOUNTER 2018-03-01 18:26 | Inpatient (IN) | payer OTHER, MEDICARE ==
[~2018-03-01] VITALS: Ht 180.3 cm; Wt 115.9 kg
[~2018-03-01 18:26] MED LIST changes: +CIPR-230 PO; -LEVO750T21 PO; -PRED10TA23 PO
[2018-03-01] MEDS ORDERED: nitroGLYCERIN-Tridil 50MG/D5W 250 ML IV ONE (18:35)
[2018-03-01] MEDS ORDERED: LORazepam 2 mg/ml vial IV ONE (18:35)
[2018-03-01] MEDS ORDERED: levoFLOXACIN-Levaquin 750MG/D5 150 ML IV STA (18:41)
[2018-03-01] MEDS ORDERED: CefTRIAXone inj 1,000 MG in normal saline 50ml IV soln 50 ML IV ONE (18:45)
[2018-03-01] MEDS ORDERED: normal saline 1000ML IV soln IVB ONE ×2 (18:45→19:35)
[2018-03-01 18:46] LABS: ABG BASE EXCESS -12.1 mmol/L (-2.0-3.0); ABG HCO3 20.5 mmol/L (22.0-26.0); ABG OXYGEN SATURATION 95.5 % (95-98); ABG PCO2 (T) 84.8 mmHg (35.0-48.0); ABG PH (T) 6.997 (7.350-7.450); ABG PO2 (T) 106.1 mmHg (83-108); FCOHb 2.2 % (0.5-1.5); FLOW 15 L/min; FMetHb 0.3 % (0.3-1.12); FO2Hb 93.1 % (94-100); PATIENT TEMPERATURE 36.4; RESPIRATORY RATE (OBSERVED) 36 b/min; TOTAL HEMOGLOBIN 12.2 G/dl (14.0-18.0)
[2018-03-01] MEDS ORDERED: CefTRIAXone inj 1,000 MG in normal saline 100ml IV soln 100 ML IV ONE (18:49)
[2018-03-01 18:54] LABS: HEMATOCRIT 35.6 % (42.0-52.0); MEAN CORPUSCULAR HGB CONC 33.6 % (33.0-36.5); MEAN PLATELET VOLUME 7.7 FL (7.4-10.4); PLATELET COUNT 245 X10'3 (140-440); RED BLOOD COUNT 3.63 X10'6 (4.70-6.10); RED CELL DISTRIBUTION WIDTH 15.6 % (11.5-14.5)
[2018-03-01] MEDS ORDERED: CefTRIAXone/D5W-Rocephin 1gm 50 ML IV ONE (19:00)
[2018-03-01 19:06] LABS: INR 0.9 INR; PARTIAL THROMBOPLASTIN TIME 28 SECONDS (22-32); PROTHROMBIN TIME 9.8 SECONDS (9.0-12.0)
[2018-03-01 19:18] LABS: ALANINE AMINOTRANSFERASE 27 U/L (12-78); ALBUMIN 3.4 G/DL (3.4-5.0); ALBUMIN/GLOBULIN RATIO 0.9 (1.1-1.5); ALKALINE PHOSPHATASE 120 IU/L (46-116); ANION GAP 10 (8-16); ASPARTATE AMINO TRANSFERASE 36 U/L (10-37); BILIRUBIN,TOTAL 0.3 MG/DL (0.1-1.0); BLOOD UREA NITROGEN 23 MG/DL (7-18); BUN/CREATININE RATIO 15.5 (5.4-32.0); CALCIUM 8.6 MG/DL (8.5-10.1); CHLORIDE 99 MMOL/L (99-107); CREATININE 1.48 MG/DL (0.60-1.10); GLUCOSE 322 MG/DL (70-104); POTASSIUM 4.8 MMOL/L (3.5-5.1); SODIUM 135 MMOL/L (135-145); TOTAL CARBON DIOXIDE 25.8 MMOL/L (24-32); eGFR 48 ML/MIN
[2018-03-01 19:20] LABS: WHITE BLOOD COUNT 202.8 X10'3 (4.5-11.0)
[2018-03-01] MEDS ORDERED: POTA10TA19 PO (19:26)
[2018-03-01] MEDS ORDERED: FURO-150 PO (19:26)
[2018-03-01] MEDS ORDERED: BUDE10.2 INH (19:26)
[2018-03-01] MEDS ORDERED: CARV6.253 PO (19:26)
[2018-03-01] MEDS ORDERED: [UNRECOGNIZED DRUG - CODE] PO (19:26)
[2018-03-01] MEDS ORDERED: ASPI81TA52 PO (19:26)
[2018-03-01] MEDS ORDERED: IPRA4AER IH (19:26)
[2018-03-01 19:44] LABS: PLATELET ESTIMATE NORMAL; TOTAL CELLS COUNTED 100
[2018-03-01 19:45] LABS: ANISOCYTOSIS 1+; SMUDGE CELLS 3+
[2018-03-01 20:31] LABS: ABG BASE EXCESS -4.7 mmol/L (-2.0-3.0); ABG HCO3 22.8 mmol/L (22.0-26.0); ABG OXYGEN SATURATION 94.6 % (95-98); ABG PCO2 (T) 52.6 mmHg (35.0-48.0); ABG PH (T) 7.253 (7.350-7.450); ABG PO2 (T) 85.9 mmHg (83-108); ALLEN'S TEST Positive; FCOHb 1.9 % (0.5-1.5); FMetHb 0.1 % (0.3-1.12); FO2Hb 92.7 % (94-100); MINUTE VOLUME 26 L/min; PATIENT TEMPERATURE 36.6; RESPIRATORY RATE 22 b/min; RESPIRATORY RATE (OBSERVED) 22 b/min; TOTAL HEMOGLOBIN 10.9 G/dl (14.0-18.0)
[2018-03-01] MEDS ORDERED: morphine 4 MG/ML inj SYRINge IV ONE (21:05)
[2018-03-01] MEDS ORDERED: acetaminophen 325mg tablet PO PRN (21:45)
[2018-03-01] MEDS ORDERED: vancomycin/NS 1 GM ADD-VANTAGE 250 ML IV ONE (21:50)
[2018-03-01] MEDS: piperacillin/tazo 3.375gm/50ml 50 ML IV SCH (22:13)
[2018-03-01] MEDS ORDERED: dextrose 50%-water 50ml dispensing syringe IV PRN ×2 (22:40)
[2018-03-01] MEDS ORDERED: dextrose ORAL solution 15 GM/59 ML bottle PO PRN ×2 (22:40)
[2018-03-01] MEDS ORDERED: MESSAGE TO PHARMACY PO ONE (22:40)
[2018-03-01] MEDS ORDERED: insulin Lispro (HumaLOG) vial - multi-dose SQ SCH (22:40)
[2018-03-01] MEDS ORDERED: glucagon, human recombinant 1mg kit SUBCUT PRN (22:40)
[2018-03-01 22:56] LABS: HEMOGLOBIN A1C 5.6 % (4.5-6.2)
[2018-03-01] MEDS ORDERED: insulin glargine (Lantus) pen - multi-dose SQ ONE (23:22)
[2018-03-01] MEDS: ipratropium/albuterol 3ml nebule NEB SCH (23:22)
[2018-03-01] MEDS ORDERED: insulin regular, human vial - multi-dose ONE (23:23)
[2018-03-01] MEDS ORDERED: insulin Lispro (HumaLOG) vial - multi-dose SQ ONE (23:32)
[2018-03-02] VITALS (7 sets, daily range): BP systolic 92–140; BP diastolic 58–113
[2018-03-02 00:45] LABS: ALBUMIN 2.9 G/DL (3.4-5.0); ANION GAP 9 (8-16); BASOPHILS # (AUTO) 0.1 X10'3 (0-0.2); BASOPHILS % (AUTO) 0.5 % (0-1); BLOOD UREA NITROGEN 26 MG/DL (7-18); BUN/CREATININE RATIO 23.6 (5.4-32.0); CHLORIDE 104 MMOL/L (99-107); EOSINOPHILS # (AUTO) 0.1 X10'3 (0-0.9); EOSINOPHILS % (AUTO) 0.4 % (0-6); GLUCOSE 101 MG/DL (70-104); HEMATOCRIT 29.7 % (42.0-52.0); HEMOGLOBIN 9.9 g/dl (14.0-17.9); LYMPHOCYTES # (AUTO) 21.8 X10'3 (1.1-4.8); LYMPHOCYTES % (AUTO) 77.4 % (21-51); MEAN CORPUSCULAR HEMOGLOBIN 31.1 PG (27.0-31.0); MEAN CORPUSCULAR HGB CONC 33.5 % (33.0-36.5); MEAN CORPUSCULAR VOLUME 92.9 FL (78-98); MEAN PLATELET VOLUME 7.8 FL (7.4-10.4); MONOCYTES # (AUTO) 0.2 X10'3 (0-0.9); MONOCYTES % (AUTO) 0.7 % (2-12); NEUTROPHILS # (AUTO) 5.9 X10'3 (1.8-7.7); PLATELET COUNT 122 X10'3 (140-440); POTASSIUM 4.9 MMOL/L (3.5-5.1); RED CELL DISTRIBUTION WIDTH 15.9 % (11.5-14.5); SODIUM 138 MMOL/L (135-145); TOTAL CARBON DIOXIDE 24.6 MMOL/L (24-32); eGFR 67 ML/MIN
[2018-03-02 00:59] LABS: WHITE BLOOD COUNT 28.1 X10'3 (4.5-11.0)
[2018-03-02 01:08] LABS: CALCIUM 7.8 MG/DL (8.5-10.1)
[2018-03-02] MEDS: piperacillin/tazo 3.375gm/50ml 50 ML IV SCH ×3 (02:00→08:45)
[2018-03-02] MEDS: ipratropium/albuterol 3ml nebule NEB SCH ×6 (03:08→19:38)
[2018-03-02] MEDS: morphine 4 MG/ML inj SYRINge IV PRN ×5 (04:56→21:46)
[2018-03-02] MEDS: budesonide 0.5mg/2ml UD nebule IH SCH ×2 (08:00→19:38)
[2018-03-02] MEDS: VENETOCLAX 50 MG PO SCH (08:00)
[2018-03-02] MEDS: carvedilol 6.25mg tablet PO SCH ×2 (08:00→19:21)
[2018-03-02] MEDS: guaiFENesin ER 600mg tablet PO SCH ×2 (08:46→19:20)
[2018-03-02] MEDS: pantoprazole 40mg Tablet.DR PO SCH (08:46)
[2018-03-02] MEDS: lactobacillus rhamnosus 10,000 MMU CELLS/CAPSULE PO SCH ×2 (08:47→19:20)
[2018-03-02] MEDS: aspirin 81mg tablet.DR PO SCH (08:47)
[2018-03-02] MEDS: furosemide 10 MG/1 ML 10ml inj IV SCH (09:35)
[2018-03-02] MEDS: ondansetron/PF 4mg/2ml inj IV PRN (14:55)
[2018-03-02] MEDS: piperacillin/tazo 4.5gm/100ml 100 ML IV SCH (17:20)
[2018-03-02] MEDS ORDERED: QUET-1 PO (19:13)
[2018-03-02] MEDS: metoclopramide 5 mg/ml inj IV PRN (19:20)
[2018-03-02] MEDS: heparin, porcine 5000 units/ml vial SQ SCH (19:28)
[2018-03-02] MEDS: insulin glargine (Lantus) pen - multi-dose SQ SCH (21:00)
[2018-03-02] MEDS: quetiapine 100mg tablet PO SCH (21:01)
[2018-03-03] VITALS (10 sets, daily range): BP systolic 92–106; BP diastolic 60–66
[2018-03-03] MEDS: piperacillin/tazo 4.5gm/100ml 100 ML IV SCH ×3 (00:52→15:48)
[2018-03-03] MEDS: morphine 4 MG/ML inj SYRINge IV PRN ×5 (02:09→23:34)
[2018-03-03] MEDS: ipratropium/albuterol 3ml nebule NEB SCH ×6 (03:28→23:12)
[2018-03-03 05:12] LABS: BASOPHILS # (AUTO) 0.1 X10'3 (0-0.2); BASOPHILS % (AUTO) 0.4 % (0-1); EOSINOPHILS # (AUTO) 0.1 X10'3 (0-0.9); EOSINOPHILS % (AUTO) 0.9 % (0-6); HEMATOCRIT 26.6 % (42.0-52.0); HEMOGLOBIN 9.2 g/dl (14.0-17.9); LYMPHOCYTES # (AUTO) 13.1 X10'3 (1.1-4.8); LYMPHOCYTES % (AUTO) 84.2 % (21-51); MEAN CORPUSCULAR HEMOGLOBIN 31.9 PG (27.0-31.0); MEAN CORPUSCULAR HGB CONC 34.6 % (33.0-36.5); MONOCYTES # (AUTO) 0.1 X10'3 (0-0.9); MONOCYTES % (AUTO) 0.7 % (2-12); NEUTROPHILS # (AUTO) 2.1 X10'3 (1.8-7.7); NEUTROPHILS % (AUTO) 13.8 % (42-75); PLATELET COUNT 87 X10'3 (140-440); RED BLOOD COUNT 2.89 X10'6 (4.70-6.10); RED CELL DISTRIBUTION WIDTH 15.7 % (11.5-14.5); WHITE BLOOD COUNT 15.6 X10'3 (4.5-11.0)
[2018-03-03 05:23] LABS: ALBUMIN 3.1 G/DL (3.4-5.0); ANION GAP 10 (8-16); BLOOD UREA NITROGEN 20 MG/DL (7-18); BUN/CREATININE RATIO 15.4 (5.4-32.0); CALCIUM 8.5 MG/DL (8.5-10.1); CHLORIDE 104 MMOL/L (99-107); GLUCOSE 110 MG/DL (70-104); POTASSIUM 3.8 MMOL/L (3.5-5.1); SODIUM 139 MMOL/L (135-145); TOTAL CARBON DIOXIDE 24.8 MMOL/L (24-32); eGFR 55 ML/MIN
[2018-03-03] MEDS: budesonide 0.5mg/2ml UD nebule IH SCH ×2 (07:08→23:12)
[2018-03-03] MEDS: VENETOCLAX 50 MG PO SCH (07:39)
[2018-03-03] MEDS: aspirin 81mg tablet.DR PO SCH (07:40)
[2018-03-03] MEDS: guaiFENesin ER 600mg tablet PO SCH ×2 (07:40→19:06)
[2018-03-03] MEDS: predniSONE 20 mg tablet PO SCH (07:41)
[2018-03-03] MEDS: lactobacillus rhamnosus 10,000 MMU CELLS/CAPSULE PO SCH ×2 (07:41→19:06)
[2018-03-03] MEDS: pantoprazole 40mg Tablet.DR PO SCH (07:41)
[2018-03-03] MEDS: furosemide 10 MG/1 ML 10ml inj IV SCH (07:42)
[2018-03-03] MEDS: heparin, porcine 5000 units/ml vial SQ SCH ×2 (07:43→19:04)
[2018-03-03] MEDS: carvedilol 6.25mg tablet PO SCH ×2 (07:44→19:14)
[2018-03-03] MEDS: metoclopramide 5 mg/ml inj IV PRN (14:03)
[2018-03-03] MEDS ORDERED: VANCOMYCIN LEVEL IV NR (18:30)
[2018-03-03] MEDS: ondansetron/PF 4mg/2ml inj IV PRN (19:16)
[2018-03-03] MEDS: insulin glargine (Lantus) pen - multi-dose SQ SCH (21:00)
[2018-03-03] MEDS: quetiapine 100mg tablet PO SCH (21:02)
[2018-03-04] MEDS: piperacillin/tazo 3.375gm/50ml 50 ML IV SCH ×3 (02:32→08:00)
[2018-03-04 03:00] VITALS: BP 90/59
[2018-03-04] MEDS: ipratropium/albuterol 3ml nebule NEB SCH ×6 (03:02→23:38)
[2018-03-04] MEDS: HYDROcodone/acetaminophen 5mg/325mg tablet PO PRN ×4 (04:42→22:10)
[2018-03-04 05:18] LABS: BASOPHILS % (AUTO) 0.3 % (0-1); EOSINOPHILS # (AUTO) 0.1 X10'3 (0-0.9); EOSINOPHILS % (AUTO) 1.1 % (0-6); HEMATOCRIT 26.6 % (42.0-52.0); LYMPHOCYTES # (AUTO) 9.9 X10'3 (1.1-4.8); LYMPHOCYTES % (AUTO) 77.3 % (21-51); MEAN CORPUSCULAR HEMOGLOBIN 31.4 PG (27.0-31.0); MEAN CORPUSCULAR HGB CONC 33.9 % (33.0-36.5); MEAN CORPUSCULAR VOLUME 92.7 FL (78-98); MEAN PLATELET VOLUME 8.6 FL (7.4-10.4); MONOCYTES # (AUTO) 0.1 X10'3 (0-0.9); MONOCYTES % (AUTO) 0.7 % (2-12); NEUTROPHILS # (AUTO) 2.6 X10'3 (1.8-7.7); NEUTROPHILS % (AUTO) 20.6 % (42-75); PLATELET COUNT 98 X10'3 (140-440); RED BLOOD COUNT 2.87 X10'6 (4.70-6.10); RED CELL DISTRIBUTION WIDTH 15.5 % (11.5-14.5); WHITE BLOOD COUNT 12.8 X10'3 (4.5-11.0)
[2018-03-04 05:31] LABS: ALBUMIN 3.1 G/DL (3.4-5.0); ANION GAP 8 (8-16); BLOOD UREA NITROGEN 18 MG/DL (7-18); BUN/CREATININE RATIO 14.1 (5.4-32.0); CALCIUM 8.5 MG/DL (8.5-10.1); CHLORIDE 102 MMOL/L (99-107); CREATININE 1.28 MG/DL (0.60-1.10); GLUCOSE 110 MG/DL (70-104); POTASSIUM 3.6 MMOL/L (3.5-5.1); SODIUM 138 MMOL/L (135-145); TOTAL CARBON DIOXIDE 27.7 MMOL/L (24-32); eGFR 56 ML/MIN
[2018-03-04 07:00] VITALS: BP 98/68
[2018-03-04] MEDS: lactobacillus rhamnosus 10,000 MMU CELLS/CAPSULE PO SCH ×2 (07:14→20:34)
[2018-03-04] MEDS: pantoprazole 40mg Tablet.DR PO SCH (07:14)
[2018-03-04] MEDS: predniSONE 20 mg tablet PO SCH (07:14)
[2018-03-04] MEDS: VENETOCLAX 50 MG PO SCH (07:14)
[2018-03-04] MEDS: carvedilol 6.25mg tablet PO SCH ×2 (07:14→20:00)
[2018-03-04] MEDS: furosemide 10 MG/1 ML 10ml inj IV SCH (07:14)
[2018-03-04] MEDS: aspirin 81mg tablet.DR PO SCH (07:14)
[2018-03-04] MEDS: guaiFENesin ER 600mg tablet PO SCH ×2 (07:14→20:34)
[2018-03-04] MEDS: budesonide 0.5mg/2ml UD nebule IH SCH ×2 (07:58→20:24)
[2018-03-04] MEDS: heparin, porcine 5000 units/ml vial SQ SCH ×2 (08:00→20:35)
[2018-03-04 09:48] LABS: TOTAL CELLS COUNTED 100
[2018-03-04 09:49] LABS: PLATELET ESTIMATE DECREASED; SMUDGE CELLS 2+
[2018-03-04 09:50] LABS: ANISOCYTOSIS 1+
[2018-03-04 11:00] VITALS: BP 88/63
[2018-03-04] MEDS: ondansetron/PF 4mg/2ml inj IV PRN ×2 (12:19→17:55)
[2018-03-04 15:00] VITALS: BP 94/62
[2018-03-04 19:00] VITALS: BP 96/67
[2018-03-04] MEDS: quetiapine 100mg tablet PO SCH (20:34)
[2018-03-04] MEDS: insulin glargine (Lantus) pen - multi-dose SQ SCH (21:00)
[2018-03-04] MEDS: metoclopramide 5 mg/ml inj IV PRN (21:39)
[2018-03-04] MEDS: gabapentin 300mg capsule PO SCH (22:24)
[2018-03-04 23:00] VITALS: BP 100/62
[2018-03-05 03:28] VITALS: BP 96/59
[2018-03-05] MEDS: HYDROcodone/acetaminophen 5mg/325mg tablet PO PRN ×5 (04:33→22:58)
[2018-03-05 05:40] LABS: BASOPHILS % (AUTO) 0.3 % (0-1); EOSINOPHILS # (AUTO) 0.1 X10'3 (0-0.9); EOSINOPHILS % (AUTO) 0.7 % (0-6); HEMATOCRIT 26.4 % (42.0-52.0); HEMOGLOBIN 8.9 g/dl (14.0-17.9); LYMPHOCYTES # (AUTO) 11.8 X10'3 (1.1-4.8); LYMPHOCYTES % (AUTO) 80.3 % (21-51); MEAN CORPUSCULAR HEMOGLOBIN 31.4 PG (27.0-31.0); MEAN CORPUSCULAR HGB CONC 33.6 % (33.0-36.5); MEAN CORPUSCULAR VOLUME 93.6 FL (78-98); MEAN PLATELET VOLUME 8.4 FL (7.4-10.4); MONOCYTES # (AUTO) 0.1 X10'3 (0-0.9); MONOCYTES % (AUTO) 0.7 % (2-12); NEUTROPHILS # (AUTO) 2.7 X10'3 (1.8-7.7); PLATELET COUNT 95 X10'3 (140-440); RED BLOOD COUNT 2.82 X10'6 (4.70-6.10); RED CELL DISTRIBUTION WIDTH 15.7 % (11.5-14.5); WHITE BLOOD COUNT 14.7 X10'3 (4.5-11.0)
[2018-03-05 05:44] LABS: ALBUMIN 3.1 G/DL (3.4-5.0); ANION GAP 6 (8-16); BLOOD UREA NITROGEN 19 MG/DL (7-18); BUN/CREATININE RATIO 14.1 (5.4-32.0); CALCIUM 8.7 MG/DL (8.5-10.1); CHLORIDE 103 MMOL/L (99-107); CREATININE 1.35 MG/DL (0.60-1.10); GLUCOSE 101 MG/DL (70-104); POTASSIUM 3.4 MMOL/L (3.5-5.1); SODIUM 139 MMOL/L (135-145); TOTAL CARBON DIOXIDE 29.7 MMOL/L (24-32); eGFR 53 ML/MIN
[2018-03-05 06:00] VITALS: BP 94/64
[2018-03-05] MEDS ORDERED: magnesium 4gm in 100ml NS 100 ML IV PRN (07:25)
[2018-03-05] MEDS ORDERED: magnesium Cl slow-release 64mg tablet PO PRN (07:25)
[2018-03-05] MEDS ORDERED: magnesium 2GM in 50ml NS 50 ML IV PRN (07:25)
[2018-03-05] MEDS ORDERED: potassium Cl 40MEQ/NS 500ml 500 ML IV PRN ×2 (07:25)
[2018-03-05] MEDS ORDERED: potassium Cl 20 mEq SR tablet PO PRN (07:25)
[2018-03-05] MEDS: ondansetron/PF 4mg/2ml inj IV PRN ×2 (07:47→17:35)
[2018-03-05] MEDS: furosemide 10 MG/1 ML 10ml inj IV SCH (08:00)
[2018-03-05] MEDS: carvedilol 6.25mg tablet PO SCH (08:00)
[2018-03-05] MEDS: budesonide 0.5mg/2ml UD nebule IH SCH ×2 (08:34→19:26)
[2018-03-05] MEDS: ipratropium/albuterol 3ml nebule NEB SCH ×4 (08:34→23:13)
[2018-03-05] MEDS: pantoprazole 40mg Tablet.DR PO SCH (08:35)
[2018-03-05] MEDS: predniSONE 20 mg tablet PO SCH (08:35)
[2018-03-05] MEDS: VENETOCLAX 100 MG PO SCH (08:35)
[2018-03-05] MEDS: lactobacillus rhamnosus 10,000 MMU CELLS/CAPSULE PO SCH ×2 (08:36→20:23)
[2018-03-05] MEDS: aspirin 81mg tablet.DR PO SCH (08:36)
[2018-03-05] MEDS: guaiFENesin ER 600mg tablet PO SCH ×2 (08:36→20:24)
[2018-03-05] MEDS: potassium Cl 20 mEq SR tablet PO PRN ×3 (08:36→16:21)
[2018-03-05] MEDS: heparin, porcine 5000 units/ml vial SQ SCH ×2 (08:37→20:28)
[2018-03-05 11:00] VITALS: BP 90/57
[2018-03-05 11:06] LABS: ABG BASE EXCESS 0.6 mmol/L (-2.0-3.0); ABG HCO3 26.3 mmol/L (22.0-26.0); ABG OXYGEN SATURATION 90.7 % (95-98); ABG PCO2 (T) 46.7 mmHg (35.0-48.0); ABG PH (T) 7.368 (7.350-7.450); ABG PO2 (T) 60.4 mmHg (83-108); ALLEN'S TEST Positive; FCOHb 0.1 % (0.5-1.5); FLOW 3 L/min; FMetHb 0.2 % (0.3-1.12); FO2Hb 90.4 % (94-100); TOTAL HEMOGLOBIN 10.3 G/dl (14.0-18.0)
[2018-03-05] MEDS: metoclopramide 5 mg/ml inj IV PRN (12:11)
[2018-03-05 15:00] VITALS: BP 100/66
[2018-03-05 19:00] VITALS: BP 93/56
[2018-03-05] MEDS: gabapentin 300mg capsule PO SCH (20:23)
[2018-03-05] MEDS: carVEDilol 3.125mg tablet PO SCH (20:25)
[2018-03-05] MEDS: insulin glargine (Lantus) pen - multi-dose SQ SCH (21:00)
[2018-03-05 23:00] VITALS: BP 114/78
[2018-03-06] MEDS: HYDROcodone/acetaminophen 5mg/325mg tablet PO PRN ×5 (02:58→23:13)
[2018-03-06 03:00] VITALS: BP 103/73
[2018-03-06] MEDS: ipratropium/albuterol 3ml nebule NEB SCH ×6 (03:10→23:26)
[2018-03-06 05:19] LABS: ALBUMIN 3.3 G/DL (3.4-5.0); ANION GAP 8 (8-16); BLOOD UREA NITROGEN 21 MG/DL (7-18); BUN/CREATININE RATIO 15.4 (5.4-32.0); CALCIUM 8.7 MG/DL (8.5-10.1); CHLORIDE 105 MMOL/L (99-107); CREATININE 1.36 MG/DL (0.60-1.10); GLUCOSE 108 MG/DL (70-104); MAGNESIUM 1.7 MG/DL (1.5-2.4); POTASSIUM 4.2 MMOL/L (3.5-5.1); SODIUM 141 MMOL/L (135-145); TOTAL CARBON DIOXIDE 27.7 MMOL/L (24-32); eGFR 52 ML/MIN
[2018-03-06 05:36] LABS: BASOPHILS # (AUTO) 0.2 X10'3 (0-0.2); BASOPHILS % (AUTO) 0.9 % (0-1); EOSINOPHILS # (AUTO) 0.3 X10'3 (0-0.9); EOSINOPHILS % (AUTO) 1.3 % (0-6); HEMATOCRIT 29.5 % (42.0-52.0); HEMOGLOBIN 9.8 g/dl (14.0-17.9); LYMPHOCYTES # (AUTO) 15.7 X10'3 (1.1-4.8); LYMPHOCYTES % (AUTO) 78.1 % (21-51); MEAN CORPUSCULAR HEMOGLOBIN 31.1 PG (27.0-31.0); MEAN CORPUSCULAR HGB CONC 33.3 % (33.0-36.5); MEAN CORPUSCULAR VOLUME 93.5 FL (78-98); MEAN PLATELET VOLUME 8.7 FL (7.4-10.4); MONOCYTES # (AUTO) 0.2 X10'3 (0-0.9); MONOCYTES % (AUTO) 0.8 % (2-12); NEUTROPHILS # (AUTO) 3.8 X10'3 (1.8-7.7); NEUTROPHILS % (AUTO) 18.9 % (42-75); PLATELET COUNT 123 X10'3 (140-440); RED BLOOD COUNT 3.16 X10'6 (4.70-6.10); RED CELL DISTRIBUTION WIDTH 16.1 % (11.5-14.5); WHITE BLOOD COUNT 20.1 X10'3 (4.5-11.0)
[2018-03-06 06:00] VITALS: BP 107/68
[2018-03-06] MEDS: budesonide 0.5mg/2ml UD nebule IH SCH ×2 (07:08→19:24)
[2018-03-06] MEDS: heparin, porcine 5000 units/ml vial SQ SCH ×2 (07:17→20:11)
[2018-03-06] MEDS: pantoprazole 40mg Tablet.DR PO SCH (07:18)
[2018-03-06] MEDS: guaiFENesin ER 600mg tablet PO SCH ×2 (07:18→20:09)
[2018-03-06] MEDS: ondansetron/PF 4mg/2ml inj IV PRN ×2 (07:18→17:09)
[2018-03-06] MEDS: aspirin 81mg tablet.DR PO SCH (07:18)
[2018-03-06] MEDS: lactobacillus rhamnosus 10,000 MMU CELLS/CAPSULE PO SCH ×2 (07:18→20:07)
[2018-03-06] MEDS: predniSONE 20 mg tablet PO SCH (07:18)
[2018-03-06] MEDS: VENETOCLAX 100 MG PO SCH (07:19)
[2018-03-06] MEDS: carVEDilol 3.125mg tablet PO SCH ×2 (08:00→20:07)
[2018-03-06] MEDS ORDERED: furosemide 10 MG/1 ML 10ml inj IV SCH (08:00)
[2018-03-06 11:00] VITALS: BP 90/62
[2018-03-06] MEDS: metoclopramide 5 mg/ml inj IV PRN (12:27)
[2018-03-06 15:00] VITALS: BP 106/69
[2018-03-06 19:00] VITALS: BP 101/74
[2018-03-06] MEDS: gabapentin 300mg capsule PO SCH (20:07)
[2018-03-06] MEDS: quetiapine 100mg tablet PO SCH (20:50)
[2018-03-06] MEDS: insulin glargine (Lantus) pen - multi-dose SQ SCH (21:00)
[2018-03-06 23:00] VITALS: BP 117/74
[2018-03-07] VITALS (7 sets, daily range): BP systolic 98–126; BP diastolic 61–76
[2018-03-07] MEDS: ipratropium/albuterol 3ml nebule NEB SCH ×6 (02:47→23:02)
[2018-03-07 05:41] LABS: MAGNESIUM 1.7 MG/DL (1.5-2.4)
[2018-03-07] MEDS: HYDROcodone/acetaminophen 5mg/325mg tablet PO PRN ×4 (07:15→23:22)
[2018-03-07] MEDS: ondansetron/PF 4mg/2ml inj IV PRN ×2 (07:16→17:08)
[2018-03-07] MEDS: carVEDilol 3.125mg tablet PO SCH ×2 (07:22→20:21)
[2018-03-07] MEDS: guaiFENesin ER 600mg tablet PO SCH ×2 (07:23→20:21)
[2018-03-07] MEDS: aspirin 81mg tablet.DR PO SCH (07:23)
[2018-03-07] MEDS: pantoprazole 40mg Tablet.DR PO SCH (07:23)
[2018-03-07] MEDS: lactobacillus rhamnosus 10,000 MMU CELLS/CAPSULE PO SCH ×2 (07:23→20:21)
[2018-03-07] MEDS: VENETOCLAX 100 MG PO SCH (07:25)
[2018-03-07] MEDS: heparin, porcine 5000 units/ml vial SQ SCH ×2 (07:25→20:23)
[2018-03-07 07:56] LABS: ALBUMIN 3.2 G/DL (3.4-5.0); ANION GAP 8 (8-16); BLOOD UREA NITROGEN 21 MG/DL (7-18); BUN/CREATININE RATIO 17.2 (5.4-32.0); CALCIUM 8.7 MG/DL (8.5-10.1); CHLORIDE 106 MMOL/L (99-107); CREATININE 1.22 MG/DL (0.60-1.10); GLUCOSE 96 MG/DL (70-104); POTASSIUM 4.1 MMOL/L (3.5-5.1); SODIUM 141 MMOL/L (135-145); eGFR 59 ML/MIN
[2018-03-07] MEDS ORDERED: predniSONE 20 mg tablet PO SCH (08:00)
[2018-03-07] MEDS: budesonide 0.5mg/2ml UD nebule IH SCH ×2 (08:17→19:15)
[2018-03-07 08:20] LABS: BASOPHILS % (AUTO) 0.4 % (0-1); EOSINOPHILS # (AUTO) 0.1 X10'3 (0-0.9); EOSINOPHILS % (AUTO) 1.5 % (0-6); HEMATOCRIT 25.8 % (42.0-52.0); HEMOGLOBIN 8.6 g/dl (14.0-17.9); LYMPHOCYTES # (AUTO) 7.6 X10'3 (1.1-4.8); LYMPHOCYTES % (AUTO) 77.5 % (21-51); MEAN CORPUSCULAR HEMOGLOBIN 31.4 PG (27.0-31.0); MEAN CORPUSCULAR HGB CONC 33.5 % (33.0-36.5); MEAN CORPUSCULAR VOLUME 93.8 FL (78-98); MEAN PLATELET VOLUME 8.6 FL (7.4-10.4); MONOCYTES # (AUTO) 0.1 X10'3 (0-0.9); MONOCYTES % (AUTO) 0.7 % (2-12); NEUTROPHILS # (AUTO) 1.9 X10'3 (1.8-7.7); NEUTROPHILS % (AUTO) 19.9 % (42-75); PLATELET COUNT 90 X10'3 (140-440); RED BLOOD COUNT 2.75 X10'6 (4.70-6.10); WHITE BLOOD COUNT 9.8 X10'3 (4.5-11.0)
[2018-03-07 08:50] LABS: TOTAL CELLS COUNTED 100
[2018-03-07 08:51] LABS: SMUDGE CELLS 2+
[2018-03-07 08:52] LABS: ANISOCYTOSIS 1+; HYPOCHROMASIA 1+; PLATELET ESTIMATE DECREASED; POLYCHROMASIA 1+
[2018-03-07] MEDS: metoclopramide 5 mg/ml inj IV PRN (12:17)
[2018-03-07] MEDS: quetiapine 100mg tablet PO SCH (20:21)
[2018-03-07] MEDS: gabapentin 300mg capsule PO SCH (20:21)
[2018-03-07] MEDS: insulin glargine (Lantus) pen - multi-dose SQ SCH (21:00)
[2018-03-08] VITALS (7 sets, daily range): BP systolic 103–122; BP diastolic 62–70
[2018-03-08] MEDS: ipratropium/albuterol 3ml nebule NEB SCH ×6 (02:45→23:21)
[2018-03-08] MEDS: guaiFENesin ER 600mg tablet PO SCH ×2 (07:12→21:30)
[2018-03-08] MEDS: lactobacillus rhamnosus 10,000 MMU CELLS/CAPSULE PO SCH ×2 (07:12→21:44)
[2018-03-08] MEDS: carVEDilol 3.125mg tablet PO SCH ×2 (07:12→21:30)
[2018-03-08] MEDS: prednisone 10mg tablet PO SCH (07:12)
[2018-03-08] MEDS: pantoprazole 40mg Tablet.DR PO SCH (07:12)
[2018-03-08] MEDS: aspirin 81mg tablet.DR PO SCH (07:12)
[2018-03-08] MEDS: ondansetron/PF 4mg/2ml inj IV PRN ×2 (07:32→17:08)
[2018-03-08] MEDS: VENETOCLAX 100 MG PO SCH (07:44)
[2018-03-08] MEDS: budesonide 0.5mg/2ml UD nebule IH SCH ×2 (08:30→20:22)
[2018-03-08] MEDS: heparin, porcine 5000 units/ml vial SQ SCH ×2 (08:40→20:00)
[2018-03-08] MEDS: metoclopramide 5 mg/ml inj IV PRN (12:13)
[2018-03-08] MEDS: HYDROcodone/acetaminophen 5mg/325mg tablet PO PRN ×3 (12:15→21:43)
[2018-03-08] MEDS: insulin glargine (Lantus) pen - multi-dose SQ SCH (21:00)
[2018-03-08] MEDS: gabapentin 300mg capsule PO SCH (21:30)
[2018-03-08] MEDS: quetiapine 100mg tablet PO SCH (21:30)
[2018-03-09] VITALS (10 sets, daily range): BP systolic 91–115; BP diastolic 57–75
[2018-03-09] MEDS: ipratropium/albuterol 3ml nebule NEB SCH ×6 (03:00→22:17)
[2018-03-09 05:03] LABS: ALANINE AMINOTRANSFERASE 27 U/L (12-78); ALBUMIN 3.1 G/DL (3.4-5.0); ALBUMIN/GLOBULIN RATIO 1.1 (1.1-1.5); ALKALINE PHOSPHATASE 69 IU/L (46-116); ANION GAP 6 (8-16); ASPARTATE AMINO TRANSFERASE 12 U/L (10-37); BILIRUBIN,TOTAL 0.5 MG/DL (0.1-1.0); BLOOD UREA NITROGEN 15 MG/DL (7-18); BUN/CREATININE RATIO 10.9 (5.4-32.0); CALCIUM 8.7 MG/DL (8.5-10.1); CHLORIDE 105 MMOL/L (99-107); CREATININE 1.38 MG/DL (0.60-1.10); GLUCOSE 101 MG/DL (70-104); MAGNESIUM 1.6 MG/DL (1.5-2.4); POTASSIUM 4.3 MMOL/L (3.5-5.1); SODIUM 142 MMOL/L (135-145); TOTAL CARBON DIOXIDE 31.2 MMOL/L (24-32); eGFR 52 ML/MIN
[2018-03-09 05:21] LABS: BASOPHILS % (AUTO) 0.3 % (0-1); EOSINOPHILS # (AUTO) 0.1 X10'3 (0-0.9); EOSINOPHILS % (AUTO) 1.4 % (0-6); HEMATOCRIT 26.5 % (42.0-52.0); HEMOGLOBIN 8.8 g/dl (14.0-17.9); LYMPHOCYTES # (AUTO) 6.3 X10'3 (1.1-4.8); LYMPHOCYTES % (AUTO) 71.4 % (21-51); MEAN CORPUSCULAR HEMOGLOBIN 30.5 PG (27.0-31.0); MEAN CORPUSCULAR HGB CONC 33.2 % (33.0-36.5); MEAN CORPUSCULAR VOLUME 92.1 FL (78-98); MEAN PLATELET VOLUME 8.3 FL (7.4-10.4); MONOCYTES # (AUTO) 0.3 X10'3 (0-0.9); MONOCYTES % (AUTO) 3.5 % (2-12); NEUTROPHILS % (AUTO) 23.4 % (42-75); PLATELET COUNT 115 X10'3 (140-440); RED BLOOD COUNT 2.88 X10'6 (4.70-6.10); RED CELL DISTRIBUTION WIDTH 14.4 % (11.5-14.5); WHITE BLOOD COUNT 8.7 X10'3 (4.5-11.0)
[2018-03-09] MEDS: budesonide 0.5mg/2ml UD nebule IH SCH ×2 (07:11→18:52)
[2018-03-09] MEDS: lactobacillus rhamnosus 10,000 MMU CELLS/CAPSULE PO SCH ×2 (07:13→20:45)
[2018-03-09] MEDS: prednisone 10mg tablet PO SCH (07:14)
[2018-03-09] MEDS: carVEDilol 3.125mg tablet PO SCH ×2 (07:14→20:45)
[2018-03-09] MEDS: pantoprazole 40mg Tablet.DR PO SCH (07:14)
[2018-03-09] MEDS: guaiFENesin ER 600mg tablet PO SCH ×2 (07:14→20:45)
[2018-03-09] MEDS: aspirin 81mg tablet.DR PO SCH (07:14)
[2018-03-09] MEDS: ondansetron/PF 4mg/2ml inj IV PRN ×2 (07:16→17:02)
[2018-03-09] MEDS: VENETOCLAX 100 MG PO SCH (07:16)
[2018-03-09] MEDS: HYDROcodone/acetaminophen 5mg/325mg tablet PO PRN ×4 (07:16→20:51)
[2018-03-09] MEDS: heparin, porcine 5000 units/ml vial SQ SCH ×2 (08:51→20:44)
[2018-03-09] MEDS: metoclopramide 5 mg/ml inj IV PRN (11:59)
[2018-03-09] MEDS: gabapentin 300mg capsule PO SCH (20:45)
[2018-03-09] MEDS: quetiapine 100mg tablet PO SCH (20:45)
[2018-03-09] MEDS: insulin glargine (Lantus) pen - multi-dose SQ SCH (21:00)
[2018-03-10] VITALS (7 sets, daily range): BP systolic 92–109; BP diastolic 50–74
[2018-03-10] MEDS: ipratropium/albuterol 3ml nebule NEB SCH ×6 (02:27→22:55)
[2018-03-10] MEDS: HYDROcodone/acetaminophen 5mg/325mg tablet PO PRN ×4 (04:34→22:16)
[2018-03-10 05:28] LABS: BASOPHILS % (AUTO) 0.4 % (0-1); EOSINOPHILS # (AUTO) 0.2 X10'3 (0-0.9); HEMATOCRIT 26.2 % (42.0-52.0); HEMOGLOBIN 8.8 g/dl (14.0-17.9); LYMPHOCYTES # (AUTO) 5.6 X10'3 (1.1-4.8); LYMPHOCYTES % (AUTO) 72.4 % (21-51); MEAN CORPUSCULAR HEMOGLOBIN 31.1 PG (27.0-31.0); MEAN CORPUSCULAR HGB CONC 33.5 % (33.0-36.5); MEAN PLATELET VOLUME 8.2 FL (7.4-10.4); MONOCYTES # (AUTO) 0.1 X10'3 (0-0.9); MONOCYTES % (AUTO) 0.8 % (2-12); NEUTROPHILS # (AUTO) 1.9 X10'3 (1.8-7.7); NEUTROPHILS % (AUTO) 24.4 % (42-75); PLATELET COUNT 108 X10'3 (140-440); RED BLOOD COUNT 2.81 X10'6 (4.70-6.10); RED CELL DISTRIBUTION WIDTH 15.3 % (11.5-14.5); WHITE BLOOD COUNT 7.7 X10'3 (4.5-11.0)
[2018-03-10 05:52] LABS: ANION GAP 6 (8-16); BLOOD UREA NITROGEN 15 MG/DL (7-18); BUN/CREATININE RATIO 11.5 (5.4-32.0); CALCIUM 8.8 MG/DL (8.5-10.1); CHLORIDE 104 MMOL/L (99-107); GLUCOSE 96 MG/DL (70-104); MAGNESIUM 1.6 MG/DL (1.5-2.4); POTASSIUM 3.9 MMOL/L (3.5-5.1); SODIUM 142 MMOL/L (135-145); TOTAL CARBON DIOXIDE 32.1 MMOL/L (24-32); eGFR 55 ML/MIN
[2018-03-10 05:53] LABS: ALANINE AMINOTRANSFERASE 28 U/L (12-78); ALBUMIN 3.2 G/DL (3.4-5.0); ALBUMIN/GLOBULIN RATIO 1.1 (1.1-1.5); ALKALINE PHOSPHATASE 69 IU/L (46-116); ASPARTATE AMINO TRANSFERASE 12 U/L (10-37); BILIRUBIN,TOTAL 0.4 MG/DL (0.1-1.0); TOTAL PROTEIN 6.1 G/DL (6.4-8.2)
[2018-03-10] MEDS: budesonide 0.5mg/2ml UD nebule IH SCH ×2 (07:22→19:28)
[2018-03-10] MEDS: ondansetron/PF 4mg/2ml inj IV PRN ×2 (07:23→17:21)
[2018-03-10] MEDS: heparin, porcine 5000 units/ml vial SQ SCH ×2 (07:27→20:48)
[2018-03-10] MEDS: prednisone 10mg tablet PO SCH (07:28)
[2018-03-10] MEDS: guaiFENesin ER 600mg tablet PO SCH ×2 (07:28→20:45)
[2018-03-10] MEDS: lactobacillus rhamnosus 10,000 MMU CELLS/CAPSULE PO SCH ×2 (07:28→20:44)
[2018-03-10] MEDS: VENETOCLAX 100 MG PO SCH (07:28)
[2018-03-10] MEDS: carVEDilol 3.125mg tablet PO SCH ×2 (07:28→20:44)
[2018-03-10] MEDS: aspirin 81mg tablet.DR PO SCH (07:28)
[2018-03-10] MEDS: pantoprazole 40mg Tablet.DR PO SCH (07:28)
[2018-03-10] MEDS: metoclopramide 5 mg/ml inj IV PRN (12:18)
[2018-03-10] MEDS: nystatin 15 GM powder TP SCH ×2 (13:27→22:17)
[2018-03-10] MEDS: insulin glargine (Lantus) pen - multi-dose SQ SCH (20:31)
[2018-03-10] MEDS: quetiapine 100mg tablet PO SCH (20:43)
[2018-03-10] MEDS: gabapentin 300mg capsule PO SCH (20:44)
[2018-03-11] VITALS (8 sets, daily range): BP systolic 89–107; BP diastolic 52–72
[2018-03-11] MEDS: HYDROcodone/acetaminophen 5mg/325mg tablet PO PRN ×4 (03:23→20:36)
[2018-03-11] MEDS: ipratropium/albuterol 3ml nebule NEB SCH ×5 (03:29→19:30)
[2018-03-11 06:02] LABS: ALANINE AMINOTRANSFERASE 25 U/L (12-78); ALBUMIN 2.1 G/DL (3.4-5.0); ALBUMIN/GLOBULIN RATIO 0.5 (1.1-1.5); ALKALINE PHOSPHATASE 69 IU/L (46-116); ANION GAP 5 (8-16); ASPARTATE AMINO TRANSFERASE 12 U/L (10-37); BILIRUBIN,TOTAL 0.4 MG/DL (0.1-1.0); BLOOD UREA NITROGEN 17 MG/DL (7-18); BUN/CREATININE RATIO 13.8 (5.4-32.0); CALCIUM 8.8 MG/DL (8.5-10.1); CHLORIDE 104 MMOL/L (99-107); CREATININE 1.23 MG/DL (0.60-1.10); GLUCOSE 104 MG/DL (70-104); POTASSIUM 4.2 MMOL/L (3.5-5.1); SODIUM 141 MMOL/L (135-145); TOTAL CARBON DIOXIDE 32.5 MMOL/L (24-32); TOTAL PROTEIN 6.1 G/DL (6.4-8.2); eGFR 59 ML/MIN
[2018-03-11 06:18] LABS: BASOPHILS % (AUTO) 0.1 % (0-1); EOSINOPHILS # (AUTO) 0.1 X10'3 (0-0.9); EOSINOPHILS % (AUTO) 1.3 % (0-6); HEMATOCRIT 26.2 % (42.0-52.0); HEMOGLOBIN 8.9 g/dl (14.0-17.9); LYMPHOCYTES # (AUTO) 5.8 X10'3 (1.1-4.8); LYMPHOCYTES % (AUTO) 72.7 % (21-51); MEAN CORPUSCULAR HEMOGLOBIN 31.4 PG (27.0-31.0); MEAN CORPUSCULAR VOLUME 92.3 FL (78-98); MEAN PLATELET VOLUME 8.7 FL (7.4-10.4); MONOCYTES # (AUTO) 0.2 X10'3 (0-0.9); MONOCYTES % (AUTO) 2.5 % (2-12); NEUTROPHILS # (AUTO) 1.9 X10'3 (1.8-7.7); NEUTROPHILS % (AUTO) 23.4 % (42-75); PLATELET COUNT 105 X10'3 (140-440); RED BLOOD COUNT 2.84 X10'6 (4.70-6.10); RED CELL DISTRIBUTION WIDTH 14.4 % (11.5-14.5)
[2018-03-11] MEDS: budesonide 0.5mg/2ml UD nebule IH SCH ×2 (06:52→19:30)
[2018-03-11] MEDS: aspirin 81mg tablet.DR PO SCH (07:19)
[2018-03-11] MEDS: ondansetron/PF 4mg/2ml inj IV PRN ×2 (07:19→17:38)
[2018-03-11] MEDS: heparin, porcine 5000 units/ml vial SQ SCH ×2 (07:19→20:36)
[2018-03-11] MEDS: prednisone 10mg tablet PO SCH (07:19)
[2018-03-11] MEDS: pantoprazole 40mg Tablet.DR PO SCH (07:20)
[2018-03-11] MEDS: lactobacillus rhamnosus 10,000 MMU CELLS/CAPSULE PO SCH ×2 (07:20→20:35)
[2018-03-11] MEDS: guaiFENesin ER 600mg tablet PO SCH ×2 (07:20→20:35)
[2018-03-11] MEDS: nystatin 15 GM powder TP SCH ×3 (07:20→20:45)
[2018-03-11] MEDS: VENETOCLAX 100 MG PO SCH (07:28)
[2018-03-11] MEDS: carVEDilol 3.125mg tablet PO SCH ×2 (08:00→20:00)
[2018-03-11 10:05] LABS: PLATELET ESTIMATE DECREASED; TOTAL CELLS COUNTED 100
[2018-03-11] MEDS: metoclopramide 5 mg/ml inj IV PRN (11:58)
[2018-03-11 20:11] LABS: ABG BASE EXCESS 4.1 mmol/L (-2.0-3.0); ABG HCO3 29.5 mmol/L (22.0-26.0); ABG OXYGEN SATURATION 92.1 % (95-98); ABG PCO2 (T) 47.8 mmHg (35.0-48.0); ABG PH (T) 7.407 (7.350-7.450); ALLEN'S TEST Positive; FCOHb 0.2 % (0.5-1.5); FLOW 3 L/min; FMetHb 0.2 % (0.3-1.12); FO2Hb 91.7 % (94-100); PATIENT TEMPERATURE 36.6; TOTAL HEMOGLOBIN 10.1 G/dl (14.0-18.0)
[2018-03-11] MEDS: gabapentin 300mg capsule PO SCH (20:35)
[2018-03-11] MEDS: quetiapine 100mg tablet PO SCH (20:35)
[2018-03-11] MEDS: insulin glargine (Lantus) pen - multi-dose SQ SCH (20:45)
[2018-03-12] MEDS: ipratropium/albuterol 3ml nebule NEB SCH ×7 (00:04→23:55)
[2018-03-12] MEDS: HYDROcodone/acetaminophen 5mg/325mg tablet PO PRN ×5 (02:38→21:55)
[2018-03-12 03:00] VITALS: BP 99/66
[2018-03-12 05:54] LABS: BASOPHILS % (AUTO) 0.4 % (0-1); EOSINOPHILS # (AUTO) 0.1 X10'3 (0-0.9); EOSINOPHILS % (AUTO) 1.1 % (0-6); HEMOGLOBIN 8.4 g/dl (14.0-17.9); LYMPHOCYTES # (AUTO) 4.8 X10'3 (1.1-4.8); LYMPHOCYTES % (AUTO) 72.7 % (21-51); MEAN CORPUSCULAR HEMOGLOBIN 31.4 PG (27.0-31.0); MEAN CORPUSCULAR HGB CONC 33.7 % (33.0-36.5); MEAN CORPUSCULAR VOLUME 93.1 FL (78-98); MEAN PLATELET VOLUME 8.3 FL (7.4-10.4); MONOCYTES # (AUTO) 0.1 X10'3 (0-0.9); MONOCYTES % (AUTO) 1.2 % (2-12); NEUTROPHILS # (AUTO) 1.6 X10'3 (1.8-7.7); NEUTROPHILS % (AUTO) 24.6 % (42-75); PLATELET COUNT 104 X10'3 (140-440); RED BLOOD COUNT 2.69 X10'6 (4.70-6.10); RED CELL DISTRIBUTION WIDTH 15.8 % (11.5-14.5); WHITE BLOOD COUNT 6.6 X10'3 (4.5-11.0)
[2018-03-12 06:00] VITALS: BP 105/72
[2018-03-12 06:31] LABS: ALANINE AMINOTRANSFERASE 26 U/L (12-78); ALBUMIN 3.1 G/DL (3.4-5.0); ALBUMIN/GLOBULIN RATIO 1.1 (1.1-1.5); ALKALINE PHOSPHATASE 63 IU/L (46-116); ANION GAP 7 (8-16); ASPARTATE AMINO TRANSFERASE 11 U/L (10-37); BILIRUBIN,TOTAL 0.4 MG/DL (0.1-1.0); BLOOD UREA NITROGEN 17 MG/DL (7-18); BUN/CREATININE RATIO 14.2 (5.4-32.0); CALCIUM 8.8 MG/DL (8.5-10.1); CHLORIDE 102 MMOL/L (99-107); GLUCOSE 102 MG/DL (70-104); POTASSIUM 4.1 MMOL/L (3.5-5.1); SODIUM 141 MMOL/L (135-145); TOTAL CARBON DIOXIDE 32.4 MMOL/L (24-32); TOTAL PROTEIN 5.9 G/DL (6.4-8.2); eGFR 61 ML/MIN
[2018-03-12] MEDS: budesonide 0.5mg/2ml UD nebule IH SCH ×2 (06:57→19:59)
[2018-03-12] MEDS: aspirin 81mg tablet.DR PO SCH (07:34)
[2018-03-12] MEDS: pantoprazole 40mg Tablet.DR PO SCH (07:34)
[2018-03-12] MEDS: ondansetron/PF 4mg/2ml inj IV PRN ×2 (07:34→17:35)
[2018-03-12] MEDS: heparin, porcine 5000 units/ml vial SQ SCH ×2 (07:34→20:08)
[2018-03-12] MEDS: predniSONE 20 mg tablet PO SCH (07:35)
[2018-03-12] MEDS: lactobacillus rhamnosus 10,000 MMU CELLS/CAPSULE PO SCH ×2 (07:35→20:00)
[2018-03-12] MEDS: guaiFENesin ER 600mg tablet PO SCH ×2 (07:35→20:00)
[2018-03-12] MEDS: carVEDilol 3.125mg tablet PO SCH ×2 (07:36→20:00)
[2018-03-12] MEDS: nystatin 15 GM powder TP SCH ×3 (07:46→20:03)
[2018-03-12 07:47] LABS: MAGNESIUM 1.7 MG/DL (1.5-2.4)
[2018-03-12] MEDS ORDERED: magnesium 2GM in 50ml NS 50 ML IV ONE (08:00)
[2018-03-12] MEDS: VENETOCLAX 100 MG PO SCH (08:34)
[2018-03-12 11:00] VITALS: BP 117/68
[2018-03-12] MEDS: furosemide 20MG tablet PO SCH ×2 (11:01→20:00)
[2018-03-12] MEDS: metoclopramide 5 mg/ml inj IV PRN (12:02)
[2018-03-12 15:00] VITALS: BP 100/69
[2018-03-12 18:00] VITALS: BP 114/63
[2018-03-12] MEDS: quetiapine 100mg tablet PO SCH (20:00)
[2018-03-12] MEDS: gabapentin 300mg capsule PO SCH (20:00)
[2018-03-12] MEDS: insulin glargine (Lantus) pen - multi-dose SQ SCH (21:00)
[2018-03-12 22:00] VITALS: BP 88/60
[2018-03-13] VITALS (7 sets, daily range): BP systolic 92–101; BP diastolic 52–71
[2018-03-13] MEDS: ipratropium/albuterol 3ml nebule NEB SCH ×6 (04:07→23:44)
[2018-03-13] MEDS: HYDROcodone/acetaminophen 5mg/325mg tablet PO PRN ×3 (04:40→22:13)
[2018-03-13] MEDS: budesonide 0.5mg/2ml UD nebule IH SCH ×2 (07:01→19:42)
[2018-03-13] MEDS: lactobacillus rhamnosus 10,000 MMU CELLS/CAPSULE PO SCH ×2 (07:24→20:31)
[2018-03-13] MEDS: ondansetron/PF 4mg/2ml inj IV PRN ×2 (07:24→16:54)
[2018-03-13] MEDS: heparin, porcine 5000 units/ml vial SQ SCH ×2 (07:24→20:33)
[2018-03-13] MEDS: guaiFENesin ER 600mg tablet PO SCH ×2 (07:25→20:32)
[2018-03-13] MEDS: aspirin 81mg tablet.DR PO SCH (07:25)
[2018-03-13] MEDS: pantoprazole 40mg Tablet.DR PO SCH (07:25)
[2018-03-13] MEDS: carVEDilol 3.125mg tablet PO SCH ×2 (07:25→20:31)
[2018-03-13] MEDS: predniSONE 20 mg tablet PO SCH (07:25)
[2018-03-13] MEDS: VENETOCLAX 100 MG PO SCH (07:31)
[2018-03-13] MEDS: nystatin 15 GM powder TP SCH ×3 (07:34→20:36)
[2018-03-13 07:49] LABS: ALBUMIN 3.6 G/DL (3.4-5.0); ANION GAP 8 (8-16); BLOOD UREA NITROGEN 29 MG/DL (7-18); BUN/CREATININE RATIO 21.2 (5.4-32.0); CHLORIDE 99 MMOL/L (99-107); CREATININE 1.37 MG/DL (0.60-1.10); GLUCOSE 96 MG/DL (70-104); POTASSIUM 4.3 MMOL/L (3.5-5.1); SODIUM 140 MMOL/L (135-145); TOTAL CARBON DIOXIDE 32.7 MMOL/L (24-32); eGFR 52 ML/MIN
[2018-03-13] MEDS: furosemide 20MG tablet PO SCH ×2 (10:25→20:32)
[2018-03-13] MEDS: metoclopramide 5 mg/ml inj IV PRN (12:06)
[2018-03-13] MEDS: quetiapine 100mg tablet PO SCH (20:31)
[2018-03-13] MEDS: gabapentin 300mg capsule PO SCH (20:32)
[2018-03-13] MEDS: insulin glargine (Lantus) pen - multi-dose SQ SCH (21:00)
[2018-03-14 02:00] VITALS: BP 96/67
[2018-03-14] MEDS: ipratropium/albuterol 3ml nebule NEB SCH ×4 (04:15→16:04)
[2018-03-14] MEDS: HYDROcodone/acetaminophen 5mg/325mg tablet PO PRN ×2 (05:40→13:07)
[2018-03-14 06:00] VITALS: BP 86/52
[2018-03-14] MEDS: budesonide 0.5mg/2ml UD nebule IH SCH (07:09)
[2018-03-14] MEDS: pantoprazole 40mg Tablet.DR PO SCH (07:15)
[2018-03-14] MEDS: aspirin 81mg tablet.DR PO SCH (07:15)
[2018-03-14] MEDS: predniSONE 20 mg tablet PO SCH (07:15)
[2018-03-14] MEDS: lactobacillus rhamnosus 10,000 MMU CELLS/CAPSULE PO SCH (07:15)
[2018-03-14] MEDS: guaiFENesin ER 600mg tablet PO SCH (07:15)
[2018-03-14] MEDS: VENETOCLAX 100 MG PO SCH (07:16)
[2018-03-14] MEDS: heparin, porcine 5000 units/ml vial SQ SCH (07:16)
[2018-03-14] MEDS: ondansetron/PF 4mg/2ml inj IV PRN (07:17)
[2018-03-14] MEDS: nystatin 15 GM powder TP SCH ×2 (07:17→13:00)
[2018-03-14 07:51] LABS: BASOPHILS % (AUTO) 0.2 % (0-1); EOSINOPHILS % (AUTO) 0.7 % (0-6); HEMATOCRIT 27.4 % (42.0-52.0); LYMPHOCYTES # (AUTO) 3.6 X10'3 (1.1-4.8); LYMPHOCYTES % (AUTO) 59.9 % (21-51); MEAN CORPUSCULAR HEMOGLOBIN 30.5 PG (27.0-31.0); MEAN CORPUSCULAR HGB CONC 32.9 % (33.0-36.5); MEAN CORPUSCULAR VOLUME 92.7 FL (78-98); MEAN PLATELET VOLUME 8.4 FL (7.4-10.4); MONOCYTES % (AUTO) 0.8 % (2-12); NEUTROPHILS # (AUTO) 2.3 X10'3 (1.8-7.7); NEUTROPHILS % (AUTO) 38.4 % (42-75); PLATELET COUNT 107 X10'3 (140-440); RED BLOOD COUNT 2.96 X10'6 (4.70-6.10); RED CELL DISTRIBUTION WIDTH 16.2 % (11.5-14.5)
[2018-03-14] MEDS: furosemide 20MG tablet PO SCH (08:00)
[2018-03-14 08:03] LABS: ALBUMIN 3.6 G/DL (3.4-5.0); ANION GAP 7 (8-16); BLOOD UREA NITROGEN 32 MG/DL (7-18); BUN/CREATININE RATIO 23.4 (5.4-32.0); CALCIUM 8.9 MG/DL (8.5-10.1); CHLORIDE 100 MMOL/L (99-107); CREATININE 1.37 MG/DL (0.60-1.10); GLUCOSE 104 MG/DL (70-104); MAGNESIUM 1.9 MG/DL (1.5-2.4); SODIUM 142 MMOL/L (135-145); TOTAL CARBON DIOXIDE 34.9 MMOL/L (24-32); eGFR 52 ML/MIN
[2018-03-14 08:43] LABS: ANISOCYTOSIS 1+; HYPOCHROMASIA 1+; PLATELET ESTIMATE DECREASED; POLYCHROMASIA 1+; SMUDGE CELLS 1+; TOTAL CELLS COUNTED 100
[2018-03-14] MEDS: carVEDilol 3.125mg tablet PO SCH (08:49)
[2018-03-14 08:51] VITALS: BP 92/54
[2018-03-14 11:00] VITALS: BP 85/51
[2018-03-14 15:00] VITALS: BP 106/61
== END 2018-03-14 17:30 | DRG 871 ==
LOC: ER 18:27 → ED HOLD 21:45 → PCU 3S 03-02 12:00
PROVIDERS: ADMIT Family Medicine; ATTEND Legal Medicine
PROC: 5A09457 Assistance with Respiratory Ventilation, 24-96 Consecutive Hours, Continuous Positive Airway Pressure (ICD-10-PCS; principal; 2018-03-01)
DX: A41.9 Sepsis, unspecified organism (principal); J15.8 Pneumonia due to other specified bacteria; J96.21 Acute and chronic respiratory failure with hypoxia; N17.9 Acute kidney failure, unspecified; I50.43 Acute on chronic combined systolic (congestive) and diastolic (congestive) heart failure; E11.22 Type 2 diabetes mellitus with diabetic chronic kidney disease; C91.10 Chronic lymphocytic leukemia of B-cell type not having achieved remission; I45.81 Long QT syndrome; I13.0 Hypertensive heart and chronic kidney disease with heart failure and stage 1 through stage 4 chronic kidney disease, or unspecified chronic kidney disease; I47.1 Supraventricular tachycardia; J96.22 Acute and chronic respiratory failure with hypercapnia; E87.2 Acidosis; I24.8 Other forms of acute ischemic heart disease; J44.0 Chronic obstructive pulmonary disease with (acute) lower respiratory infection; J44.1 Chronic obstructive pulmonary disease with (acute) exacerbation; E11.42 Type 2 diabetes mellitus with diabetic polyneuropathy; E11.65 Type 2 diabetes mellitus with hyperglycemia; R00.8 Other abnormalities of heart beat; K21.9 Gastro-esophageal reflux disease without esophagitis; Z77.090 Contact with and (suspected) exposure to asbestos; M19.90 Unspecified osteoarthritis, unspecified site; I25.10 Atherosclerotic heart disease of native coronary artery without angina pectoris; B33.24 Viral cardiomyopathy; N18.9 Chronic kidney disease, unspecified; E66.9 Obesity, unspecified; F39 Unspecified mood [affective] disorder; F41.0 Panic disorder [episodic paroxysmal anxiety]; F41.1 Generalized anxiety disorder; Z99.81 Dependence on supplemental oxygen; Z90.49 Acquired absence of other specified parts of digestive tract; Z79.899 Other long term (current) drug therapy; Z79.82 Long term (current) use of aspirin; Z87.891 Personal history of nicotine dependence; Z82.49 Family history of ischemic heart disease and other diseases of the circulatory system; Z68.35 Body mass index [BMI] 35.0-35.9, adult
CPT/HCPCS: 36415; 36600; 71045; 80048; 80053; 80202; 82803; 82948; 83036; 83605; 83615; 83735; 83880; 84145; 84484; 84550; 85018; 85025; 85610; 85730; 87040; 87070; 87077; 93005; 94640; 94660; 94668; 94760; 96368; 96375; 97116; 97162; 97530; 99285; 99291; A6212; A6257; A9270; J0696; J1644; J1815; J1940; J1956; J2060; J2270; J2405; J2543; J2765; J3370; J3475; J7030; J7040; J7512; J7626

== ENCOUNTER 2018-10-07 11:34 | Inpatient (IN) | payer MEDICARE, OTHER ==
[~2018-10-07] VITALS: Ht 188 cm; Wt 116.4 kg
[~2018-10-07 11:34] MED LIST changes: -ALB0.5UD IH; +APIX5TAB3 PO; -ASPI-1071 PO; +ASPI81TA52 PO; +BUDE10.2 INH; -CARV6.253 PO; -CIPR-230 PO; +COR3.125T PO; +DIGO125T5 PO; -ESOM20CA PO; -GUAI100L97 PO; -HYDR-3564 PO; +HYDR-4353 PO; +IPRA4AER IH; +LACTC PO; -LORA-269 PO; -MAGN400C PO; -MOME0.132; +OMEP20TA5 PO; +POTA10TA19 PO; -POTA10TA36 PO
[2018-10-07] MEDS ORDERED: amiodarone 50MG/ML inj IV ONE ×4 (11:45→20:00)
[2018-10-07 11:54] LABS: BASOPHILS % (AUTO) 0.3 % (0-1); EOSINOPHILS # (AUTO) 0.3 X10'3 (0-0.9); EOSINOPHILS % (AUTO) 2.4 % (0-6); HEMATOCRIT 34.1 % (42.0-52.0); HEMOGLOBIN 10.9 g/dl (14.0-17.9); LYMPHOCYTES # (AUTO) 3.5 X10'3 (1.1-4.8); LYMPHOCYTES % (AUTO) 25.5 % (21-51); MEAN CORPUSCULAR HEMOGLOBIN 25.2 PG (27.0-31.0); MEAN CORPUSCULAR VOLUME 78.8 FL (78-98); MEAN PLATELET VOLUME 9.4 FL (7.4-10.4); MONOCYTES # (AUTO) 0.6 X10'3 (0-0.9); MONOCYTES % (AUTO) 4.5 % (2-12); NEUTROPHILS # (AUTO) 9.3 X10'3 (1.8-7.7); NEUTROPHILS % (AUTO) 67.3 % (42-75); PLATELET COUNT 133 X10'3 (140-440); RED BLOOD COUNT 4.33 X10'6 (4.70-6.10); RED CELL DISTRIBUTION WIDTH 16.9 % (11.5-14.5); WHITE BLOOD COUNT 13.9 X10'3 (4.5-11.0)
[2018-10-07 12:06] LABS: ISTAT CREATININE 1.8 mg/dL (0.8-1.3); ISTAT HGB 11.9 g/dl (14.0-18.0); ISTAT IONIZED CALCIUM 1.11 mmol/L (1.03-1.32); ISTAT K 5.4 mmol/L (3.5-5.1); POC BUN/CREATININE RATIO 16.1 (5.4-32.0)
[2018-10-07 12:10] LABS: ALANINE AMINOTRANSFERASE 21 U/L (12-78); ALBUMIN 3.4 G/DL (3.4-5.0); ALKALINE PHOSPHATASE 95 IU/L (46-116); ANION GAP 10 (8-16); ASPARTATE AMINO TRANSFERASE 16 U/L (10-37); BILIRUBIN,TOTAL 0.4 MG/DL (0.1-1.0); BLOOD UREA NITROGEN 32 MG/DL (7-18); BUN/CREATININE RATIO 17.3 (5.4-32.0); CALCIUM 8.8 MG/DL (8.5-10.1); CHLORIDE 98 MMOL/L (99-107); CREATININE 1.85 MG/DL (0.60-1.10); GLUCOSE 128 MG/DL (70-104); POTASSIUM 5.4 MMOL/L (3.5-5.1); SODIUM 133 MMOL/L (135-145); TOTAL CARBON DIOXIDE 25.4 MMOL/L (24-32); TOTAL PROTEIN 6.7 G/DL (6.4-8.2); eGFR 37 ML/MIN
[2018-10-07 12:15] LABS: INR 1.1 INR; PARTIAL THROMBOPLASTIN TIME 29 SECONDS (22-32); PROTHROMBIN TIME 10.8 SECONDS (9.0-12.0)
[2018-10-07] MEDS ORDERED: ondansetron/PF 4mg/2ml inj IV ONE ×2 (13:00→15:45)
[2018-10-07] MEDS ORDERED: acetaminophen 325mg tablet PO ONE (13:00)
[2018-10-07] MEDS ORDERED: normal saline 1000ML IV soln IVB ONE (14:05)
[2018-10-07] MEDS ORDERED: magnesium 1gm/100ml D5W IVPB 100 ML IV ONE (14:05)
[2018-10-07] MEDS: amiodarone/D5 360MG/200ML BAG 200 ML IV SCH ×2 (14:17→20:01)
[2018-10-07] MEDS ORDERED: calcium gluconate inj. 1 GM in normal saline 100ml IV soln 90 ML IV ONE (16:10)
[2018-10-07] MEDS ORDERED: CALCIUM GLUCONATE 1 GM in NORMAL SALINE 100ml IV.SOLN IV ONE (16:15)
[2018-10-07] MEDS ORDERED: atropine 1 MG/1 ML vial IV ONE (16:20)
[2018-10-07] MEDS ORDERED: calcium chloride 100 MG/1 ML inj IV ONE ×2 (16:20→20:00)
[2018-10-07] MEDS ORDERED: magnesium 4gm in 100ml NS 100 ML IV PRN (16:25)
[2018-10-07] MEDS ORDERED: potassium Cl 20 mEq SR tablet PO PRN ×2 (16:25)
[2018-10-07] MEDS ORDERED: amiodarone/D5 360MG/200ML BAG 200 ML IV SCH (16:25)
[2018-10-07] MEDS ORDERED: magnesium 1gm/100ml D5W IVPB 100 ML IV PRN (16:25)
[2018-10-07] MEDS ORDERED: potassium Cl 40MEQ/NS 500ml 500 ML IV PRN ×2 (16:25)
[2018-10-07] MEDS ORDERED: ondansetron/PF 4mg/2ml inj IV PRN (16:25)
[2018-10-07 16:46] LABS: MAGNESIUM 1.5 MG/DL (1.5-2.4)
[2018-10-07] MEDS: acetylcysteine 200 MG/ml 4ml vial PO SCH ×2 (17:20→23:24)
[2018-10-07] MEDS: sodium bicarbonate (8.4%) inj. 150 MEQ in sodium chloride 0.45% 1,000 ML IV SCH (17:22)
[2018-10-07] MEDS ORDERED: LISI-604 PO (17:48)
[2018-10-07] MEDS ORDERED: CARV6.253 PO (17:53)
[2018-10-07] MEDS ORDERED: APIX5TAB3 PO (17:53)
[2018-10-07] MEDS ORDERED: DIGO125T97 PO (17:53)
[2018-10-07 19:00] VITALS: BP 124/54
[2018-10-07] MEDS ORDERED: atropine 0.1mg/ml 10ml syringe ONE (20:00)
[2018-10-07] MEDS: furosemide 20MG tablet PO ONE ×2 (20:07→20:54)
[2018-10-07] MEDS: carvedilol 6.25mg tablet PO SCH (20:08)
[2018-10-07] MEDS: magnesium 1gm/100ml D5W IVPB 100 ML IV SCH ×2 (20:15→21:10)
[2018-10-07] MEDS: ipratropium/albuterol 3ml nebule IH PRN (22:48)
[2018-10-07 23:00] VITALS: BP 103/76
[2018-10-07] MEDS: temazepam 15mg capsule PO PRN (23:23)
[2018-10-08] VITALS (13 sets, daily range): BP systolic 80–122; BP diastolic 41–78
[2018-10-08] MEDS: amiodarone/D5 360MG/200ML BAG 200 ML IV SCH ×4 (02:08→21:51)
[2018-10-08] MEDS: ipratropium/albuterol 3ml nebule IH PRN (03:33)
[2018-10-08] MEDS: ondansetron/PF 4mg/2ml inj IV PRN ×2 (04:18→12:05)
[2018-10-08 05:41] LABS: BASOPHILS # (AUTO) 0.1 X10'3 (0-0.2); BASOPHILS % (AUTO) 0.4 % (0-1); EOSINOPHILS # (AUTO) 0.3 X10'3 (0-0.9); EOSINOPHILS % (AUTO) 1.5 % (0-6); HEMATOCRIT 33.2 % (42.0-52.0); HEMOGLOBIN 10.6 g/dl (14.0-17.9); LYMPHOCYTES # (AUTO) 6.3 X10'3 (1.1-4.8); LYMPHOCYTES % (AUTO) 32.1 % (21-51); MEAN CORPUSCULAR HEMOGLOBIN 25.1 PG (27.0-31.0); MEAN CORPUSCULAR VOLUME 78.6 FL (78-98); MEAN PLATELET VOLUME 9.9 FL (7.4-10.4); MONOCYTES # (AUTO) 0.8 X10'3 (0-0.9); MONOCYTES % (AUTO) 4.3 % (2-12); NEUTROPHILS # (AUTO) 12.1 X10'3 (1.8-7.7); NEUTROPHILS % (AUTO) 61.7 % (42-75); PLATELET COUNT 150 X10'3 (140-440); RED BLOOD COUNT 4.23 X10'6 (4.70-6.10); RED CELL DISTRIBUTION WIDTH 16.9 % (11.5-14.5); WHITE BLOOD COUNT 19.7 X10'3 (4.5-11.0)
[2018-10-08 05:57] LABS: ALANINE AMINOTRANSFERASE 144 U/L (12-78); ALBUMIN 3.3 G/DL (3.4-5.0); ALKALINE PHOSPHATASE 106 IU/L (46-116); ANION GAP 10 (8-16); ASPARTATE AMINO TRANSFERASE 136 U/L (10-37); BILIRUBIN,TOTAL 0.5 MG/DL (0.1-1.0); BLOOD UREA NITROGEN 39 MG/DL (7-18); BUN/CREATININE RATIO 19.4 (5.4-32.0); CALCIUM 8.9 MG/DL (8.5-10.1); CHLORIDE 94 MMOL/L (99-107); CREATININE 2.01 MG/DL (0.60-1.10); GLUCOSE 136 MG/DL (70-104); MAGNESIUM 2.1 MG/DL (1.5-2.4); POTASSIUM 5.3 MMOL/L (3.5-5.1); SODIUM 128 MMOL/L (135-145); TOTAL CARBON DIOXIDE 24.1 MMOL/L (24-32); TOTAL PROTEIN 6.5 G/DL (6.4-8.2); eGFR 33 ML/MIN
[2018-10-08] MEDS: normal saline 1000ml 1,000 ML IV SCH (07:28)
[2018-10-08] MEDS: proCHLORperazine 10 MG/2 ml inj IV PRN (07:31)
[2018-10-08] MEDS: furosemide 20MG tablet PO SCH (07:32)
[2018-10-08] MEDS: furosemide 40mg tablet PO SCH (07:32)
[2018-10-08] MEDS: acetylcysteine 200 MG/ml 4ml vial PO SCH ×2 (07:33→20:00)
[2018-10-08] MEDS: carvedilol 6.25mg tablet PO SCH ×2 (07:34→20:00)
[2018-10-08] MEDS: pantoprazole 40mg Tablet.DR PO SCH (07:34)
[2018-10-08] MEDS: lisinopril 5mg tablet PO SCH ×2 (07:35→07:48)
[2018-10-08] MEDS ORDERED: non-formulary drug (Budesonide/Formoterol Fumarate (Symbicort 160-4.5 Mcg Inhaler) 2 PUFFS INH SCH (08:00)
[2018-10-08] MEDS ORDERED: potassium chloride 10mEq ER tablet PO SCH (08:00)
[2018-10-08] MEDS ORDERED: lisinopril 5mg tablet PO SCH (08:00)
[2018-10-08] MEDS: K and/or MAG REPLACEMENT MC SCH (08:00)
[2018-10-08] MEDS ORDERED: carvedilol 6.25mg tablet PO SCH (08:00)
[2018-10-08] MEDS: albuterol 2.5 MG/3 ML nebule NEB SCH ×4 (08:07→19:50)
[2018-10-08] MEDS: budesonide 0.5mg/2ml UD nebule IH SCH ×2 (08:07→19:50)
[2018-10-08] MEDS ORDERED: heparin 1,000unit/ml 10ml vial 10 ML ONE (11:53)
[2018-10-08] MEDS ORDERED: midazolam 2 mg/2 ml injection ONE (11:53)
[2018-10-08] MEDS ORDERED: fentaNYL/PF 50MCG/1 ML 2ML syringe ONE (11:53)
[2018-10-08] MEDS ORDERED: iohexol 350MG/ML 100ml bottle IV ONE (11:53)
[2018-10-08] MEDS ORDERED: iohexol 350 MG/ML 50ML vial IV ONE (11:53)
[2018-10-08] MEDS ORDERED: nitroGLYCERIN-Tridil 50MG/D5W 250 ML IV ONE (11:53)
[2018-10-08] MEDS ORDERED: verapamil 2.5 mg/ml inj IV ONE (11:53)
[2018-10-08] MEDS ORDERED: LIDOcaine/PRILOcaine 5gm cream TP ONE (11:55)
[2018-10-08] MEDS ORDERED: LIDOcaine 1% 30ml preserv. free vial ONE (12:12)
[2018-10-08] MEDS ORDERED: DOBUTamine-DoBUTrex 500mg/D5W 250 ML IV ONE (13:14)
[2018-10-08] MEDS ORDERED: furosemide 40mg/4ml inj ONE (13:38)
[2018-10-08] MEDS ORDERED: DOBUTamine-DoBUTrex 500mg/D5W 250 ML IV SCH (14:20)
[2018-10-08] MEDS: DOBUTamine-DoBUTrex 500mg/D5W 250 ML IV SCH (14:46)
[2018-10-08] MEDS: HYDROcodone/acetaminophen 10/325mg tab PO PRN (14:46)
[2018-10-08] MEDS: sodium bicarbonate (8.4%) inj. 150 MEQ in sodium chloride 0.45% 1,000 ML IV SCH ×2 (16:38→20:18)
[2018-10-08] MEDS: gabapentin 300mg capsule PO SCH (20:16)
[2018-10-08] MEDS: HYDROcodone/acetaminophen 5mg/325mg tablet PO PRN (20:17)
[2018-10-08] MEDS: quetiapine 100mg tablet PO SCH (20:18)
[2018-10-09] VITALS (12 sets, daily range): BP systolic 86–122; BP diastolic 49–67
[2018-10-09] MEDS: DOBUTamine-DoBUTrex 500mg/D5W 250 ML IV SCH ×2 (06:29→09:49)
[2018-10-09 07:00] LABS: ALANINE AMINOTRANSFERASE 117 U/L (12-78); ALBUMIN 2.9 G/DL (3.4-5.0); ALKALINE PHOSPHATASE 85 IU/L (46-116); ANION GAP 5 (8-16); ASPARTATE AMINO TRANSFERASE 47 U/L (10-37); BILIRUBIN,TOTAL 0.4 MG/DL (0.1-1.0); BLOOD UREA NITROGEN 38 MG/DL (7-18); BUN/CREATININE RATIO 20.5 (5.4-32.0); CALCIUM 8.1 MG/DL (8.5-10.1); CHLORIDE 94 MMOL/L (99-107); CHOL/HDL RATIO 6.9 (0.00-4.99); CHOLESTEROL 103 MG/DL (0-200); CREATININE 1.85 MG/DL (0.60-1.10); GLUCOSE 107 MG/DL (70-104); HDL CHOLESTEROL 15 MG/DL (35-60); LDL CHOLESTEROL 61 MG/DL (50-100); MAGNESIUM 1.8 MG/DL (1.5-2.4); POTASSIUM 3.9 MMOL/L (3.5-5.1); SODIUM 130 MMOL/L (135-145); TOTAL CARBON DIOXIDE 31.4 MMOL/L (24-32); TOTAL PROTEIN 5.8 G/DL (6.4-8.2); TRIGLYCERIDES 159 MG/DL (20-135); eGFR 37 ML/MIN
[2018-10-09] MEDS: amiodarone/D5 360MG/200ML BAG 200 ML IV SCH ×4 (07:04→20:36)
[2018-10-09] MEDS: albuterol 2.5 MG/3 ML nebule NEB SCH ×4 (07:24→20:30)
[2018-10-09] MEDS: budesonide 0.5mg/2ml UD nebule IH SCH ×2 (07:24→20:30)
[2018-10-09 07:49] LABS: BASOPHILS % (AUTO) 0.2 % (0-1); EOSINOPHILS # (AUTO) 0.2 X10'3 (0-0.9); EOSINOPHILS % (AUTO) 2.6 % (0-6); HEMATOCRIT 28.1 % (42.0-52.0); HEMOGLOBIN 9.1 g/dl (14.0-17.9); LYMPHOCYTES # (AUTO) 1.1 X10'3 (1.1-4.8); LYMPHOCYTES % (AUTO) 15.9 % (21-51); MEAN CORPUSCULAR HEMOGLOBIN 25.3 PG (27.0-31.0); MEAN CORPUSCULAR HGB CONC 32.4 % (33.0-36.5); MEAN CORPUSCULAR VOLUME 78.3 FL (78-98); MONOCYTES # (AUTO) 0.3 X10'3 (0-0.9); MONOCYTES % (AUTO) 4.2 % (2-12); NEUTROPHILS # (AUTO) 5.5 X10'3 (1.8-7.7); NEUTROPHILS % (AUTO) 77.1 % (42-75); PLATELET COUNT 73 X10'3 (140-440); RED BLOOD COUNT 3.59 X10'6 (4.70-6.10); RED CELL DISTRIBUTION WIDTH 17.2 % (11.5-14.5); WHITE BLOOD COUNT 7.2 X10'3 (4.5-11.0)
[2018-10-09] MEDS: K and/or MAG REPLACEMENT MC SCH (08:00)
[2018-10-09] MEDS: acetylcysteine 200 MG/ml 4ml vial PO SCH ×2 (09:51→20:19)
[2018-10-09] MEDS: furosemide 40mg tablet PO SCH (09:51)
[2018-10-09] MEDS: pantoprazole 40mg Tablet.DR PO SCH (09:51)
[2018-10-09] MEDS: carvedilol 6.25mg tablet PO SCH ×2 (09:52→20:19)
[2018-10-09] MEDS: furosemide 20MG tablet PO SCH (09:52)
[2018-10-09] MEDS: HYDROcodone/acetaminophen 5mg/325mg tablet PO PRN (09:52)
[2018-10-09] MEDS: HYDROcodone/acetaminophen 10/325mg tab PO PRN (14:21)
[2018-10-09] MEDS: proCHLORperazine 10 MG/2 ml inj IV PRN (16:06)
[2018-10-09] MEDS: normal saline 1000ml 1,000 ML IV SCH (16:22)
[2018-10-09 17:51] LABS: ALANINE AMINOTRANSFERASE 103 U/L (12-78); ALBUMIN 2.9 G/DL (3.4-5.0); ALKALINE PHOSPHATASE 95 IU/L (46-116); ASPARTATE AMINO TRANSFERASE 37 U/L (10-37); BILIRUBIN,DIRECT 0.1 MG/DL (0-0.3); BILIRUBIN,TOTAL 0.4 MG/DL (0.1-1.0); TOTAL PROTEIN 5.8 G/DL (6.4-8.2)
[2018-10-09] MEDS: ferrous sulfate 325mg tablet PO SCH (20:18)
[2018-10-09] MEDS: amiodarone 200mg tablet PO SCH (20:18)
[2018-10-09] MEDS: apixaban 5mg tablet PO SCH (20:18)
[2018-10-09] MEDS: gabapentin 300mg capsule PO SCH (20:19)
[2018-10-09] MEDS: quetiapine 100mg tablet PO SCH (20:19)
[2018-10-09] MEDS: temazepam 15mg capsule PO PRN (20:19)
[2018-10-10] VITALS (13 sets, daily range): BP systolic 107–136; BP diastolic 47–83
[2018-10-10] MEDS: magnesium Cl slow-release 64mg tablet PO PRN ×2 (02:32→10:54)
[2018-10-10] MEDS: HYDROcodone/acetaminophen 10/325mg tab PO PRN ×4 (02:34→20:27)
[2018-10-10] MEDS: DOBUTamine-DoBUTrex 500mg/D5W 250 ML IV SCH ×3 (04:01→20:08)
[2018-10-10 05:24] LABS: ALANINE AMINOTRANSFERASE 95 U/L (12-78); ALBUMIN 2.8 G/DL (3.4-5.0); ALBUMIN/GLOBULIN RATIO 0.9 (1.1-1.5); ALKALINE PHOSPHATASE 90 IU/L (46-116); ANION GAP 6 (8-16); ASPARTATE AMINO TRANSFERASE 33 U/L (10-37); BILIRUBIN,TOTAL 0.4 MG/DL (0.1-1.0); BLOOD UREA NITROGEN 32 MG/DL (7-18); BUN/CREATININE RATIO 19.5 (5.4-32.0); CALCIUM 8.1 MG/DL (8.5-10.1); CHLORIDE 91 MMOL/L (99-107); CREATININE 1.64 MG/DL (0.60-1.10); GLUCOSE 117 MG/DL (70-104); POTASSIUM 4.5 MMOL/L (3.5-5.1); SODIUM 128 MMOL/L (135-145); TOTAL CARBON DIOXIDE 31.3 MMOL/L (24-32); TOTAL PROTEIN 5.9 G/DL (6.4-8.2); eGFR 42 ML/MIN
[2018-10-10 05:30] LABS: BASOPHILS % (AUTO) 0.2 % (0-1); EOSINOPHILS # (AUTO) 0.3 X10'3 (0-0.9); EOSINOPHILS % (AUTO) 3.6 % (0-6); HEMATOCRIT 27.2 % (42.0-52.0); HEMOGLOBIN 8.8 g/dl (14.0-17.9); LYMPHOCYTES # (AUTO) 1.5 X10'3 (1.1-4.8); LYMPHOCYTES % (AUTO) 18.3 % (21-51); MEAN CORPUSCULAR HEMOGLOBIN 25.4 PG (27.0-31.0); MEAN CORPUSCULAR HGB CONC 32.4 % (33.0-36.5); MEAN CORPUSCULAR VOLUME 78.4 FL (78-98); MEAN PLATELET VOLUME 10.3 FL (7.4-10.4); MONOCYTES # (AUTO) 0.7 X10'3 (0-0.9); NEUTROPHILS # (AUTO) 5.5 X10'3 (1.8-7.7); NEUTROPHILS % (AUTO) 68.9 % (42-75); PLATELET COUNT 72 X10'3 (140-440); RED BLOOD COUNT 3.47 X10'6 (4.70-6.10); RED CELL DISTRIBUTION WIDTH 17.3 % (11.5-14.5)
[2018-10-10 05:31] LABS: MAGNESIUM 1.6 MG/DL (1.5-2.4)
[2018-10-10 06:45] LABS: ANISOCYTOSIS 1+; HYPOCHROMASIA 1+; PLATELET ESTIMATE DECREASED
[2018-10-10 06:46] LABS: MICROCYTOSIS 1+
[2018-10-10] MEDS: budesonide 0.5mg/2ml UD nebule IH SCH ×2 (07:13→19:44)
[2018-10-10] MEDS: albuterol 2.5 MG/3 ML nebule NEB SCH ×4 (07:13→19:44)
[2018-10-10] MEDS: apixaban 5mg tablet PO SCH ×2 (07:56→20:25)
[2018-10-10] MEDS: ferrous sulfate 325mg tablet PO SCH ×2 (07:56→20:24)
[2018-10-10] MEDS: carvedilol 6.25mg tablet PO SCH ×2 (07:56→20:25)
[2018-10-10] MEDS: amiodarone 200mg tablet PO SCH ×2 (07:56→20:25)
[2018-10-10] MEDS: aspirin 81mg tablet.DR PO SCH (07:56)
[2018-10-10] MEDS: pantoprazole 40mg Tablet.DR PO SCH (07:56)
[2018-10-10] MEDS: ondansetron/PF 4mg/2ml inj IV PRN ×2 (07:57→19:06)
[2018-10-10] MEDS: losartan 25mg tablet PO SCH (07:57)
[2018-10-10] MEDS: acetylcysteine 200 MG/ml 4ml vial PO SCH (07:57)
[2018-10-10] MEDS: furosemide 20MG tablet PO SCH (07:57)
[2018-10-10] MEDS: K and/or MAG REPLACEMENT MC SCH (08:00)
[2018-10-10] MEDS: proCHLORperazine 10 MG/2 ml inj IV PRN (13:05)
[2018-10-10] MEDS: quetiapine 100mg tablet PO SCH (20:25)
[2018-10-10] MEDS: gabapentin 300mg capsule PO SCH (20:25)
[2018-10-11] MEDS: HYDROcodone/acetaminophen 10/325mg tab PO PRN ×3 (01:40→11:45)
[2018-10-11] MEDS: proCHLORperazine 10 MG/2 ml inj IV PRN (01:41)
[2018-10-11 03:05] VITALS: BP 110/69
[2018-10-11] MEDS: ipratropium/albuterol 3ml nebule IH PRN (05:34)
[2018-10-11 06:00] VITALS: BP 89/56
[2018-10-11 06:08] LABS: BASOPHILS % (AUTO) 0.4 % (0-1); EOSINOPHILS # (AUTO) 0.2 X10'3 (0-0.9); EOSINOPHILS % (AUTO) 3.3 % (0-6); HEMOGLOBIN 8.3 g/dl (14.0-17.9); LYMPHOCYTES # (AUTO) 1.3 X10'3 (1.1-4.8); LYMPHOCYTES % (AUTO) 21.4 % (21-51); MEAN CORPUSCULAR HGB CONC 31.9 % (33.0-36.5); MEAN CORPUSCULAR VOLUME 78.6 FL (78-98); MONOCYTES # (AUTO) 0.6 X10'3 (0-0.9); MONOCYTES % (AUTO) 9.3 % (2-12); NEUTROPHILS % (AUTO) 65.6 % (42-75); PLATELET COUNT 66 X10'3 (140-440); RED BLOOD COUNT 3.31 X10'6 (4.70-6.10); RED CELL DISTRIBUTION WIDTH 16.4 % (11.5-14.5); WHITE BLOOD COUNT 6.1 X10'3 (4.5-11.0)
[2018-10-11 06:43] LABS: ALANINE AMINOTRANSFERASE 82 U/L (12-78); ALBUMIN 2.9 G/DL (3.4-5.0); ALBUMIN/GLOBULIN RATIO 0.9 (1.1-1.5); ALKALINE PHOSPHATASE 91 IU/L (46-116); ANION GAP 3 (8-16); ASPARTATE AMINO TRANSFERASE 25 U/L (10-37); BILIRUBIN,TOTAL 0.5 MG/DL (0.1-1.0); BLOOD UREA NITROGEN 25 MG/DL (7-18); BUN/CREATININE RATIO 18.5 (5.4-32.0); CALCIUM 8.3 MG/DL (8.5-10.1); CHLORIDE 91 MMOL/L (99-107); CREATININE 1.35 MG/DL (0.60-1.10); GLUCOSE 103 MG/DL (70-104); MAGNESIUM 1.7 MG/DL (1.5-2.4); POTASSIUM 4.7 MMOL/L (3.5-5.1); SODIUM 127 MMOL/L (135-145); TOTAL CARBON DIOXIDE 32.6 MMOL/L (24-32); TOTAL PROTEIN 6.1 G/DL (6.4-8.2); eGFR 53 ML/MIN
[2018-10-11 07:35] VITALS: BP 94/54
[2018-10-11] MEDS: albuterol 2.5 MG/3 ML nebule NEB SCH ×2 (07:39→11:17)
[2018-10-11] MEDS: budesonide 0.5mg/2ml UD nebule IH SCH (07:39)
[2018-10-11] MEDS: amiodarone 200mg tablet PO SCH (07:50)
[2018-10-11] MEDS: pantoprazole 40mg Tablet.DR PO SCH (07:50)
[2018-10-11] MEDS: losartan 25mg tablet PO SCH (07:51)
[2018-10-11] MEDS: carvedilol 6.25mg tablet PO SCH (07:51)
[2018-10-11] MEDS: furosemide 20MG tablet PO SCH (07:52)
[2018-10-11] MEDS: apixaban 5mg tablet PO SCH (07:52)
[2018-10-11] MEDS: aspirin 81mg tablet.DR PO SCH (07:52)
[2018-10-11] MEDS: ferrous sulfate 325mg tablet PO SCH (07:52)
[2018-10-11] MEDS: K and/or MAG REPLACEMENT MC SCH (08:00)
[2018-10-11] MEDS ORDERED: AMIO200T54 PO (10:33)
[2018-10-11] MEDS ORDERED: AMIO200T40 PO (10:33)
[2018-10-11 11:00] VITALS: BP 114/73
[2018-10-11] MEDS ORDERED: magnesium oxide 400mg tablet PO ONE (13:55)
[2018-10-12 08:41] LABS: ISTAT HGB ART 10.2 g/dl (14.0-18.0); ISTAT Hct ART 30 %PCV (42-52); ISTAT Hct MIX 30 %PCV (42-52); ISTAT O2 SATURATION ARTERIAL 96 % (95-98); ISTAT O2 SATURATION MIX VENOUS 45 % (60-80); ISTAT SOURCE ART; ISTAT SOURCE MIX
== END 2018-10-11 15:40 | disposition home or self-care (01) | DRG 286 ==
LOC: ER 11:35 → ED HOLD 16:22 → PCU 3S 17:49
PROVIDERS: ADMIT Internal Medicine; ATTEND Internal Medicine
PROC: 4A023N8 Measurement of Cardiac Sampling and Pressure, Bilateral, Percutaneous Approach (ICD-10-PCS; principal; 2018-10-08)
PROC: B2111ZZ Fluoroscopy of Multiple Coronary Arteries using Low Osmolar Contrast (ICD-10-PCS; 2018-10-08)
PROC: B2151ZZ Fluoroscopy of Left Heart using Low Osmolar Contrast (ICD-10-PCS; 2018-10-08)
DX: I47.2 Ventricular tachycardia (principal); I50.23 Acute on chronic systolic (congestive) heart failure; I42.9 Cardiomyopathy, unspecified; J96.10 Chronic respiratory failure, unspecified whether with hypoxia or hypercapnia; N17.9 Acute kidney failure, unspecified; I13.0 Hypertensive heart and chronic kidney disease with heart failure and stage 1 through stage 4 chronic kidney disease, or unspecified chronic kidney disease; C91.10 Chronic lymphocytic leukemia of B-cell type not having achieved remission; N18.9 Chronic kidney disease, unspecified; E87.5 Hyperkalemia; G89.29 Other chronic pain; I08.1 Rheumatic disorders of both mitral and tricuspid valves; I25.10 Atherosclerotic heart disease of native coronary artery without angina pectoris; F17.210 Nicotine dependence, cigarettes, uncomplicated; M19.90 Unspecified osteoarthritis, unspecified site; J44.9 Chronic obstructive pulmonary disease, unspecified; I48.0 Paroxysmal atrial fibrillation; K21.9 Gastro-esophageal reflux disease without esophagitis; Z99.81 Dependence on supplemental oxygen; Z79.01 Long term (current) use of anticoagulants; Z79.899 Other long term (current) drug therapy; Z82.49 Family history of ischemic heart disease and other diseases of the circulatory system
CPT/HCPCS: 36415; 71045; 80047; 80053; 80061; 80076; 80162; 82553; 82803; 83735; 83880; 84439; 84443; 84484; 85014; 85025; 85610; 85730; 87070; 93005; 93306; 93460; 94640; 94760; 96374; 96375; 97116; 97161; 97530; 99152; 99153; 99291; A4620; A6257; C1769; G0378; J0282; J0461; J0610; J0780; J1250; J1644; J1940; J2250; J2405; J3010; J3490; J7030; J7626; Q9967

== ENCOUNTER 2018-10-17 19:15 | Inpatient (IN) | payer MEDICARE, OTHER ==
[~2018-10-17] VITALS: Ht 188 cm; Wt 123.7 kg
[2018-10-17 01:00] VITALS: BP 79/49
[~2018-10-17 19:15] MED LIST changes: +AMIO200T40 PO; +AMIO200T54 PO; -ASPI81TA52 PO; +CARV6.253 PO; -COR3.125T PO; -DIGO125T5 PO; +LISI-604 PO
[2018-10-17 19:48] LABS: BASOPHILS # (AUTO) 0.1 X10'3 (0-0.2); BASOPHILS % (AUTO) 0.6 % (0-1); EOSINOPHILS # (AUTO) 0.3 X10'3 (0-0.9); EOSINOPHILS % (AUTO) 2.5 % (0-6); HEMATOCRIT 25.4 % (42.0-52.0); HEMOGLOBIN 7.9 g/dl (14.0-17.9); LYMPHOCYTES # (AUTO) 2.9 X10'3 (1.1-4.8); LYMPHOCYTES % (AUTO) 26.8 % (21-51); MEAN CORPUSCULAR HGB CONC 31.3 % (33.0-36.5); MONOCYTES # (AUTO) 0.6 X10'3 (0-0.9); MONOCYTES % (AUTO) 5.2 % (2-12); NEUTROPHILS % (AUTO) 64.9 % (42-75); PLATELET COUNT 127 X10'3 (140-440); RED BLOOD COUNT 3.17 X10'6 (4.70-6.10); RED CELL DISTRIBUTION WIDTH 17.9 % (11.5-14.5); WHITE BLOOD COUNT 10.8 X10'3 (4.5-11.0)
[2018-10-17 20:02] LABS: INR 1.2 INR; PARTIAL THROMBOPLASTIN TIME 28 SECONDS (22-32); PROTHROMBIN TIME 11.6 SECONDS (9.0-12.0)
[2018-10-17 20:12] LABS: ALANINE AMINOTRANSFERASE 29 U/L (12-78); ALBUMIN 3.2 G/DL (3.4-5.0); ALKALINE PHOSPHATASE 91 IU/L (46-116); ANION GAP 7 (8-16); ASPARTATE AMINO TRANSFERASE 12 U/L (10-37); BILIRUBIN,TOTAL 0.6 MG/DL (0.1-1.0); BLOOD UREA NITROGEN 24 MG/DL (7-18); BUN/CREATININE RATIO 15.6 (5.4-32.0); CALCIUM 8.2 MG/DL (8.5-10.1); CHLORIDE 97 MMOL/L (99-107); CREATININE 1.54 MG/DL (0.60-1.10); GLUCOSE 142 MG/DL (70-104); POTASSIUM 4.1 MMOL/L (3.5-5.1); SODIUM 135 MMOL/L (135-145); TOTAL CARBON DIOXIDE 30.8 MMOL/L (24-32); TOTAL PROTEIN 6.4 G/DL (6.4-8.2); eGFR 45 ML/MIN
[2018-10-17] MEDS ORDERED: temazepam 15mg capsule PO PRN (21:00)
[2018-10-17] MEDS ORDERED: HYDROcodone/acetaminophen 10/325mg tab PO ONE (22:25)
[2018-10-17] MEDS ORDERED: acetaminophen 325mg tablet PO PRN (22:40)
[2018-10-17] MEDS ORDERED: magnesium hydroxide 30ml (MOM) UD suspension PO PRN (22:40)
[2018-10-17] MEDS ORDERED: diphenhydrAMINE 50 mg/ml inj IV PRN (22:40)
[2018-10-17] MEDS ORDERED: bisacodyl 10mg suppository rectal RC PRN (22:40)
[2018-10-17] MEDS ORDERED: diphenhydrAMINE 25mg capsule PO PRN (22:40)
[2018-10-17] MEDS ORDERED: acetaminophen 650mg rectal suppository RC PRN (22:40)
[2018-10-17] MEDS ORDERED: HYDROcodone/acetaminophen 5mg/325mg tablet PO PRN (22:40)
[2018-10-17] MEDS ORDERED: mag hydrox/Alum hydrox/simeth 30ml oral suspension PO PRN (22:40)
[2018-10-17 22:55] LABS: MAGNESIUM 1.7 MG/DL (1.5-2.4); PHOSPHORUS 3.9 MG/DL (2.3-4.5)
[2018-10-17 23:07] LABS: LIPASE 70 U/L (73-393)
[2018-10-17 23:13] LABS: D-DIMER 1.27 MG/L FEU (0-0.50)
[2018-10-17] MEDS: DOPamine 400mg/D5W 250ml 250 ML IV SCH (23:50)
[2018-10-18] VITALS (36 sets, daily range): BP systolic 81–112; BP diastolic 39–62
[2018-10-18] MEDS: DOPamine 400mg/D5W 250ml 250 ML IV SCH ×2 (01:32→13:21)
[2018-10-18 01:49] LABS: ALANINE AMINOTRANSFERASE 27 U/L (12-78); ALBUMIN 3.2 G/DL (3.4-5.0); ALKALINE PHOSPHATASE 83 IU/L (46-116); ANION GAP 7 (8-16); ASPARTATE AMINO TRANSFERASE 11 U/L (10-37); BILIRUBIN,TOTAL 0.4 MG/DL (0.1-1.0); BLOOD UREA NITROGEN 26 MG/DL (7-18); BUN/CREATININE RATIO 16.6 (5.4-32.0); CALCIUM 8.1 MG/DL (8.5-10.1); CHLORIDE 98 MMOL/L (99-107); CREATININE 1.57 MG/DL (0.60-1.10); GLUCOSE 118 MG/DL (70-104); POTASSIUM 4.3 MMOL/L (3.5-5.1); SODIUM 135 MMOL/L (135-145); TOTAL CARBON DIOXIDE 29.9 MMOL/L (24-32); TOTAL PROTEIN 6.3 G/DL (6.4-8.2); eGFR 44 ML/MIN
[2018-10-18 01:54] LABS: BASOPHILS % (AUTO) 0.5 % (0-1); EOSINOPHILS # (AUTO) 0.2 X10'3 (0-0.9); EOSINOPHILS % (AUTO) 2.9 % (0-6); HEMOGLOBIN 7.2 g/dl (14.0-17.9); LYMPHOCYTES % (AUTO) 26.3 % (21-51); MEAN CORPUSCULAR HEMOGLOBIN 24.9 PG (27.0-31.0); MEAN CORPUSCULAR HGB CONC 31.4 % (33.0-36.5); MEAN CORPUSCULAR VOLUME 79.4 FL (78-98); MEAN PLATELET VOLUME 9.4 FL (7.4-10.4); MONOCYTES # (AUTO) 0.5 X10'3 (0-0.9); MONOCYTES % (AUTO) 6.3 % (2-12); NEUTROPHILS # (AUTO) 4.9 X10'3 (1.8-7.7); PLATELET COUNT 96 X10'3 (140-440); RED BLOOD COUNT 2.89 X10'6 (4.70-6.10); RED CELL DISTRIBUTION WIDTH 17.8 % (11.5-14.5); WHITE BLOOD COUNT 7.7 X10'3 (4.5-11.0)
[2018-10-18] MEDS: ipratropium/albuterol 3ml nebule IH PRN ×2 (03:46→07:07)
[2018-10-18] MEDS: ondansetron/PF 4mg/2ml inj IV PRN (05:41)
[2018-10-18] MEDS: albuterol 2.5 MG/3 ML nebule NEB SCH ×4 (07:00→19:16)
[2018-10-18] MEDS: budesonide 0.5mg/2ml UD nebule IH SCH ×2 (07:08→19:16)
[2018-10-18] MEDS ORDERED: pantoprazole 40mg Tablet.DR PO SCH (07:30)
[2018-10-18] MEDS ORDERED: furosemide 10 MG/1 ML 10ml inj IV SCH (08:00)
[2018-10-18] MEDS ORDERED: apixaban 5mg tablet PO SCH (08:00)
[2018-10-18] MEDS: docusate sod 100mg capsule PO SCH ×2 (08:05→21:42)
[2018-10-18] MEDS: carvedilol 6.25mg tablet PO SCH ×2 (08:05→21:42)
[2018-10-18] MEDS: lisinopril 5mg tablet PO SCH (08:05)
[2018-10-18] MEDS: pantoprazole 40 MG vial IV SCH ×2 (08:07→21:43)
[2018-10-18] MEDS ORDERED: aspirin 81mg tab.chew PO SCH (08:30)
[2018-10-18] MEDS: HYDROcodone/acetaminophen 10/325mg tab PO PRN ×3 (11:24→21:43)
[2018-10-18] MEDS: DOBUTamine-DoBUTrex 500mg/D5W 250 ML IV SCH (14:12)
[2018-10-18 16:45] LABS: BASOPHILS % (AUTO) 0.2 % (0-1); EOSINOPHILS # (AUTO) 0.2 X10'3 (0-0.9); EOSINOPHILS % (AUTO) 2.3 % (0-6); HEMATOCRIT 26.4 % (42.0-52.0); HEMOGLOBIN 8.4 g/dl (14.0-17.9); LYMPHOCYTES % (AUTO) 24.4 % (21-51); MEAN CORPUSCULAR HEMOGLOBIN 25.8 PG (27.0-31.0); MEAN CORPUSCULAR HGB CONC 31.9 % (33.0-36.5); MEAN CORPUSCULAR VOLUME 80.9 FL (78-98); MEAN PLATELET VOLUME 8.6 FL (7.4-10.4); MONOCYTES # (AUTO) 0.3 X10'3 (0-0.9); MONOCYTES % (AUTO) 4.2 % (2-12); NEUTROPHILS # (AUTO) 5.6 X10'3 (1.8-7.7); NEUTROPHILS % (AUTO) 68.9 % (42-75); PLATELET COUNT 111 X10'3 (140-440); RED BLOOD COUNT 3.27 X10'6 (4.70-6.10); RED CELL DISTRIBUTION WIDTH 17.5 % (11.5-14.5); WHITE BLOOD COUNT 8.2 X10'3 (4.5-11.0)
[2018-10-18] MEDS: gabapentin 300mg capsule PO SCH (21:42)
[2018-10-18] MEDS: quetiapine 100mg tablet PO SCH (21:43)
[2018-10-19] VITALS (9 sets, daily range): BP systolic 96–122; BP diastolic 55–70
[2018-10-19] MEDS: HYDROcodone/acetaminophen 10/325mg tab PO PRN ×4 (01:13→19:49)
[2018-10-19] MEDS ORDERED: amiodarone 200mg tablet PO STA (01:19)
[2018-10-19] MEDS ORDERED: magnesium oxide 400mg tablet PO ONE (01:20)
[2018-10-19] MEDS: metoclopramide 5 mg/ml inj IV PRN ×2 (03:17→13:21)
[2018-10-19] MEDS: ipratropium/albuterol 3ml nebule IH PRN ×2 (03:35→23:18)
[2018-10-19 05:20] LABS: BASOPHILS % (AUTO) 0.2 % (0-1); EOSINOPHILS # (AUTO) 0.3 X10'3 (0-0.9); EOSINOPHILS % (AUTO) 3.6 % (0-6); HEMATOCRIT 26.9 % (42.0-52.0); HEMOGLOBIN 8.5 g/dl (14.0-17.9); LYMPHOCYTES # (AUTO) 1.7 X10'3 (1.1-4.8); LYMPHOCYTES % (AUTO) 19.4 % (21-51); MEAN CORPUSCULAR HEMOGLOBIN 25.6 PG (27.0-31.0); MEAN CORPUSCULAR HGB CONC 31.7 % (33.0-36.5); MEAN CORPUSCULAR VOLUME 80.8 FL (78-98); MEAN PLATELET VOLUME 9.5 FL (7.4-10.4); MONOCYTES # (AUTO) 0.5 X10'3 (0-0.9); MONOCYTES % (AUTO) 6.1 % (2-12); NEUTROPHILS # (AUTO) 6.3 X10'3 (1.8-7.7); NEUTROPHILS % (AUTO) 70.7 % (42-75); PLATELET COUNT 104 X10'3 (140-440); RED BLOOD COUNT 3.33 X10'6 (4.70-6.10); RED CELL DISTRIBUTION WIDTH 17.9 % (11.5-14.5); WHITE BLOOD COUNT 8.9 X10'3 (4.5-11.0)
[2018-10-19 05:20] LABS: OCCULT BLOOD STOOL POSITIVE (Neg)
[2018-10-19 05:41] LABS: ALANINE AMINOTRANSFERASE 23 U/L (12-78); ALBUMIN 3.1 G/DL (3.4-5.0); ALKALINE PHOSPHATASE 92 IU/L (46-116); ANION GAP 5 (8-16); ASPARTATE AMINO TRANSFERASE 11 U/L (10-37); BILIRUBIN,TOTAL 0.6 MG/DL (0.1-1.0); BLOOD UREA NITROGEN 21 MG/DL (7-18); BUN/CREATININE RATIO 14.4 (5.4-32.0); CALCIUM 7.9 MG/DL (8.5-10.1); CHLORIDE 94 MMOL/L (99-107); CREATININE 1.46 MG/DL (0.60-1.10); GLUCOSE 118 MG/DL (70-104); POTASSIUM 4.3 MMOL/L (3.5-5.1); SODIUM 130 MMOL/L (135-145); TOTAL CARBON DIOXIDE 31.3 MMOL/L (24-32); TOTAL PROTEIN 6.2 G/DL (6.4-8.2); eGFR 48 ML/MIN
[2018-10-19] MEDS: budesonide 0.5mg/2ml UD nebule IH SCH ×2 (07:27→19:35)
[2018-10-19] MEDS: albuterol 2.5 MG/3 ML nebule NEB SCH ×4 (07:27→19:35)
[2018-10-19] MEDS: pantoprazole 40 MG vial IV SCH (07:49)
[2018-10-19] MEDS: lisinopril 5mg tablet PO SCH (07:49)
[2018-10-19] MEDS: docusate sod 100mg capsule PO SCH ×2 (07:49→19:49)
[2018-10-19] MEDS: carvedilol 6.25mg tablet PO SCH ×2 (07:58→19:50)
[2018-10-19] MEDS: amiodarone 200mg tablet PO SCH (08:37)
[2018-10-19] MEDS: ondansetron/PF 4mg/2ml inj IV PRN ×2 (11:00→19:49)
[2018-10-19] MEDS: morphine 2 MG/ML inj. syringe IV PRN ×2 (11:00→23:26)
[2018-10-19] MEDS: DOBUTamine-DoBUTrex 500mg/D5W 250 ML IV SCH (14:40)
[2018-10-19] MEDS ORDERED: LIDOcaine Viscous 15ml cup ONE (14:42)
[2018-10-19] MEDS ORDERED: fentaNYL/PF 50MCG/1 ML 2ML syringe ONE (14:42)
[2018-10-19] MEDS ORDERED: MIDAZolam 5mg/5ml vial ONE (14:42)
[2018-10-19] MEDS: pantoprazole 40mg Tablet.DR PO SCH (19:50)
[2018-10-19] MEDS: gabapentin 300mg capsule PO SCH (21:37)
[2018-10-19] MEDS: quetiapine 100mg tablet PO SCH (21:37)
[2018-10-20] VITALS (14 sets, daily range): BP systolic 88–128; BP diastolic 52–75
[2018-10-20] MEDS: diatr meglu/diatrizoate 30ml oral sol.-(3 dose) bottle PO SCH (02:30)
[2018-10-20] MEDS: ondansetron/PF 4mg/2ml inj IV PRN (04:21)
[2018-10-20] MEDS: HYDROcodone/acetaminophen 10/325mg tab PO PRN ×4 (04:22→20:43)
[2018-10-20 05:07] LABS: BASOPHILS % (AUTO) 0.3 % (0-1); EOSINOPHILS # (AUTO) 0.3 X10'3 (0-0.9); EOSINOPHILS % (AUTO) 4.6 % (0-6); HEMATOCRIT 26.3 % (42.0-52.0); HEMOGLOBIN 8.3 g/dl (14.0-17.9); LYMPHOCYTES # (AUTO) 1.1 X10'3 (1.1-4.8); LYMPHOCYTES % (AUTO) 18.6 % (21-51); MEAN CORPUSCULAR HEMOGLOBIN 25.4 PG (27.0-31.0); MEAN CORPUSCULAR HGB CONC 31.6 % (33.0-36.5); MEAN CORPUSCULAR VOLUME 80.1 FL (78-98); MEAN PLATELET VOLUME 8.9 FL (7.4-10.4); MONOCYTES # (AUTO) 0.4 X10'3 (0-0.9); MONOCYTES % (AUTO) 6.9 % (2-12); NEUTROPHILS # (AUTO) 4.1 X10'3 (1.8-7.7); NEUTROPHILS % (AUTO) 69.6 % (42-75); PLATELET COUNT 99 X10'3 (140-440); RED BLOOD COUNT 3.28 X10'6 (4.70-6.10); WHITE BLOOD COUNT 5.8 X10'3 (4.5-11.0)
[2018-10-20 05:34] LABS: ALANINE AMINOTRANSFERASE 20 U/L (12-78); ALKALINE PHOSPHATASE 86 IU/L (46-116); ANION GAP 4 (8-16); ASPARTATE AMINO TRANSFERASE 10 U/L (10-37); BILIRUBIN,TOTAL 0.6 MG/DL (0.1-1.0); BLOOD UREA NITROGEN 18 MG/DL (7-18); BUN/CREATININE RATIO 14.5 (5.4-32.0); CALCIUM 7.9 MG/DL (8.5-10.1); CHLORIDE 93 MMOL/L (99-107); CREATININE 1.24 MG/DL (0.60-1.10); GLUCOSE 110 MG/DL (70-104); POTASSIUM 4.8 MMOL/L (3.5-5.1); SODIUM 128 MMOL/L (135-145); TOTAL CARBON DIOXIDE 30.8 MMOL/L (24-32); eGFR 58 ML/MIN
[2018-10-20] MEDS: budesonide 0.5mg/2ml UD nebule IH SCH ×2 (07:58→21:33)
[2018-10-20] MEDS: albuterol 2.5 MG/3 ML nebule NEB SCH ×4 (07:58→21:33)
[2018-10-20] MEDS: amiodarone 200mg tablet PO SCH (08:11)
[2018-10-20] MEDS: pantoprazole 40mg Tablet.DR PO SCH ×2 (08:11→20:36)
[2018-10-20] MEDS: docusate sod 100mg capsule PO SCH ×2 (08:11→20:35)
[2018-10-20] MEDS: carvedilol 6.25mg tablet PO SCH ×2 (08:12→20:35)
[2018-10-20] MEDS: DOBUTamine-DoBUTrex 500mg/D5W 250 ML IV SCH (13:01)
[2018-10-20] MEDS: morphine 2 MG/ML inj. syringe IV PRN (14:24)
[2018-10-20] MEDS ORDERED: fentaNYL/PF 50MCG/1 ML 2ML syringe ONE (15:21)
[2018-10-20] MEDS ORDERED: MIDAZolam 5mg/5ml vial ONE (15:21)
[2018-10-20] MEDS ORDERED: LIDOcaine Viscous 15ml cup ONE (15:21)
[2018-10-20] MEDS: gabapentin 300mg capsule PO SCH (20:35)
[2018-10-20] MEDS: quetiapine 100mg tablet PO SCH (20:35)
[2018-10-20] MEDS: lisinopril 5mg tablet PO SCH (20:35)
[2018-10-20] MEDS: fluconazole 100mg tablet PO SCH (20:47)
[2018-10-21] VITALS (7 sets, daily range): BP systolic 92–115; BP diastolic 51–62
[2018-10-21] MEDS: ipratropium/albuterol 3ml nebule IH PRN ×2 (00:39→23:51)
[2018-10-21 05:57] LABS: BASOPHILS % (AUTO) 0.4 % (0-1); EOSINOPHILS # (AUTO) 0.2 X10'3 (0-0.9); EOSINOPHILS % (AUTO) 4.1 % (0-6); HEMATOCRIT 25.7 % (42.0-52.0); HEMOGLOBIN 8.3 g/dl (14.0-17.9); LYMPHOCYTES # (AUTO) 1.2 X10'3 (1.1-4.8); LYMPHOCYTES % (AUTO) 21.1 % (21-51); MEAN CORPUSCULAR HEMOGLOBIN 25.9 PG (27.0-31.0); MEAN CORPUSCULAR HGB CONC 32.3 % (33.0-36.5); MEAN CORPUSCULAR VOLUME 80.2 FL (78-98); MEAN PLATELET VOLUME 8.7 FL (7.4-10.4); MONOCYTES # (AUTO) 0.4 X10'3 (0-0.9); MONOCYTES % (AUTO) 7.1 % (2-12); NEUTROPHILS # (AUTO) 3.8 X10'3 (1.8-7.7); NEUTROPHILS % (AUTO) 67.3 % (42-75); PLATELET COUNT 103 X10'3 (140-440); RED BLOOD COUNT 3.21 X10'6 (4.70-6.10); RED CELL DISTRIBUTION WIDTH 17.7 % (11.5-14.5); WHITE BLOOD COUNT 5.6 X10'3 (4.5-11.0)
[2018-10-21 07:01] LABS: ALANINE AMINOTRANSFERASE 16 U/L (12-78); ALBUMIN 2.9 G/DL (3.4-5.0); ALKALINE PHOSPHATASE 89 IU/L (46-116); ANION GAP 3 (8-16); ASPARTATE AMINO TRANSFERASE 10 U/L (10-37); BILIRUBIN,TOTAL 0.4 MG/DL (0.1-1.0); BLOOD UREA NITROGEN 18 MG/DL (7-18); BUN/CREATININE RATIO 14.6 (5.4-32.0); CALCIUM 8.3 MG/DL (8.5-10.1); CHLORIDE 96 MMOL/L (99-107); CREATININE 1.23 MG/DL (0.60-1.10); GLUCOSE 93 MG/DL (70-104); POTASSIUM 4.7 MMOL/L (3.5-5.1); SODIUM 131 MMOL/L (135-145); TOTAL CARBON DIOXIDE 31.8 MMOL/L (24-32); TOTAL PROTEIN 5.9 G/DL (6.4-8.2); eGFR 59 ML/MIN
[2018-10-21] MEDS: diatr meglu/diatrizoate 30ml oral sol.-(3 dose) bottle PO SCH ×2 (07:10→09:14)
[2018-10-21] MEDS: HYDROcodone/acetaminophen 10/325mg tab PO PRN ×3 (07:10→19:58)
[2018-10-21] MEDS: fluconazole 100mg tablet PO SCH (09:15)
[2018-10-21] MEDS: amiodarone 200mg tablet PO SCH (09:15)
[2018-10-21] MEDS: carvedilol 6.25mg tablet PO SCH (09:15)
[2018-10-21] MEDS: pantoprazole 40mg Tablet.DR PO SCH ×2 (09:15→19:58)
[2018-10-21] MEDS: docusate sod 100mg capsule PO SCH ×2 (09:16→19:59)
[2018-10-21] MEDS: albuterol 2.5 MG/3 ML nebule NEB SCH ×4 (09:29→19:36)
[2018-10-21] MEDS: budesonide 0.5mg/2ml UD nebule IH SCH ×2 (09:29→19:36)
[2018-10-21] MEDS ORDERED: iohexol 300mg/ml 100ml inj. ONE (10:56)
[2018-10-21] MEDS: DOBUTamine-DoBUTrex 500mg/D5W 250 ML IV SCH (18:04)
[2018-10-21] MEDS: apixaban 2.5mg tablet PO SCH (19:58)
[2018-10-21] MEDS: carVEDilol 3.125mg tablet PO SCH (20:00)
[2018-10-21] MEDS: quetiapine 100mg tablet PO SCH (21:01)
[2018-10-21] MEDS: gabapentin 300mg capsule PO SCH (21:01)
[2018-10-21] MEDS: lisinopril 5mg tablet PO SCH (21:01)
[2018-10-22 01:00] VITALS: BP 109/58
[2018-10-22] MEDS: HYDROcodone/acetaminophen 10/325mg tab PO PRN ×3 (02:24→11:47)
[2018-10-22 03:00] VITALS: BP 110/61
[2018-10-22 05:00] VITALS: BP 109/59
[2018-10-22 05:40] LABS: BASOPHILS % (AUTO) 0.2 % (0-1); EOSINOPHILS # (AUTO) 0.2 X10'3 (0-0.9); EOSINOPHILS % (AUTO) 3.7 % (0-6); HEMATOCRIT 24.8 % (42.0-52.0); LYMPHOCYTES # (AUTO) 1.2 X10'3 (1.1-4.8); LYMPHOCYTES % (AUTO) 23.1 % (21-51); MEAN CORPUSCULAR HEMOGLOBIN 25.9 PG (27.0-31.0); MEAN CORPUSCULAR HGB CONC 32.1 % (33.0-36.5); MEAN CORPUSCULAR VOLUME 80.6 FL (78-98); MEAN PLATELET VOLUME 8.8 FL (7.4-10.4); MONOCYTES # (AUTO) 0.4 X10'3 (0-0.9); MONOCYTES % (AUTO) 7.5 % (2-12); NEUTROPHILS # (AUTO) 3.4 X10'3 (1.8-7.7); NEUTROPHILS % (AUTO) 65.5 % (42-75); PLATELET COUNT 102 X10'3 (140-440); RED BLOOD COUNT 3.08 X10'6 (4.70-6.10); RED CELL DISTRIBUTION WIDTH 18.1 % (11.5-14.5); WHITE BLOOD COUNT 5.2 X10'3 (4.5-11.0)
[2018-10-22 06:22] LABS: ALANINE AMINOTRANSFERASE 15 U/L (12-78); ALBUMIN 2.8 G/DL (3.4-5.0); ALKALINE PHOSPHATASE 90 IU/L (46-116); ANION GAP 1 (8-16); ASPARTATE AMINO TRANSFERASE 10 U/L (10-37); BILIRUBIN,TOTAL 0.4 MG/DL (0.1-1.0); BLOOD UREA NITROGEN 18 MG/DL (7-18); BUN/CREATININE RATIO 14.1 (5.4-32.0); CALCIUM 8.2 MG/DL (8.5-10.1); CHLORIDE 97 MMOL/L (99-107); CREATININE 1.28 MG/DL (0.60-1.10); GLUCOSE 108 MG/DL (70-104); POTASSIUM 4.7 MMOL/L (3.5-5.1); SODIUM 132 MMOL/L (135-145); TOTAL CARBON DIOXIDE 33.7 MMOL/L (24-32); TOTAL PROTEIN 5.7 G/DL (6.4-8.2); eGFR 56 ML/MIN
[2018-10-22 07:27] VITALS: BP 109/59
[2018-10-22] MEDS: pantoprazole 40mg Tablet.DR PO SCH (07:35)
[2018-10-22] MEDS: carVEDilol 3.125mg tablet PO SCH (07:35)
[2018-10-22] MEDS: apixaban 2.5mg tablet PO SCH (07:35)
[2018-10-22] MEDS: docusate sod 100mg capsule PO SCH (07:35)
[2018-10-22] MEDS: amiodarone 200mg tablet PO SCH (07:35)
[2018-10-22] MEDS: ondansetron/PF 4mg/2ml inj IV PRN (07:43)
[2018-10-22] MEDS: budesonide 0.5mg/2ml UD nebule IH SCH (08:23)
[2018-10-22] MEDS: albuterol 2.5 MG/3 ML nebule NEB SCH ×3 (08:23→15:16)
[2018-10-22 11:00] VITALS: BP 106/60
[2018-10-22] MEDS: fluconazole 100mg tablet PO SCH (11:47)
[2018-10-22 14:11] LABS: HEMATOCRIT 27.1 % (42.0-52.0); HEMOGLOBIN 8.5 g/dl (14.0-17.9); MEAN CORPUSCULAR HEMOGLOBIN 25.5 PG (27.0-31.0); MEAN CORPUSCULAR HGB CONC 31.4 % (33.0-36.5); MEAN PLATELET VOLUME 8.2 FL (7.4-10.4); PLATELET COUNT 116 X10'3 (140-440); RED BLOOD COUNT 3.35 X10'6 (4.70-6.10); WHITE BLOOD COUNT 6.9 X10'3 (4.5-11.0)
[2018-10-22 14:22] LABS: ANISOCYTOSIS 2+; MICROCYTOSIS 1+; PLATELET ESTIMATE DECREASED; POIKILOCYTOSIS FEW; TOTAL CELLS COUNTED 100
[2018-10-22 16:08] VITALS: BP 83/62
[2018-10-22] MEDS ORDERED: APIX2.5T PO (16:20)
[2018-10-22] MEDS ORDERED: PANT40TA4 PO (16:20)
[2018-10-22] MEDS ORDERED: COR3.125T PO (16:20)
[2018-10-22] MEDS ORDERED: FLUC100T9 PO (16:20)
== END 2018-10-22 17:10 | disposition home or self-care (01) | DRG 377 ==
LOC: ER 19:16 → ED HOLD 22:37 → PCU 3S 10-18 00:31
PROVIDERS: ADMIT Family Medicine; ATTEND Family Medicine
PROC: 30233N1 Transfusion of Nonautologous Red Blood Cells into Peripheral Vein, Percutaneous Approach (ICD-10-PCS; 2018-10-18)
PROC: 0DJ08ZZ Inspection of Upper Intestinal Tract, Via Natural or Artificial Opening Endoscopic (ICD-10-PCS; principal; 2018-10-19)
PROC: 0DJ08ZZ Inspection of Upper Intestinal Tract, Via Natural or Artificial Opening Endoscopic (ICD-10-PCS; 2018-10-20)
PROC: BW201ZZ Computerized Tomography (CT Scan) of Abdomen using Low Osmolar Contrast (ICD-10-PCS; 2018-10-21)
DX: K92.2 Gastrointestinal hemorrhage, unspecified (principal); I50.43 Acute on chronic combined systolic (congestive) and diastolic (congestive) heart failure; N17.9 Acute kidney failure, unspecified; I13.0 Hypertensive heart and chronic kidney disease with heart failure and stage 1 through stage 4 chronic kidney disease, or unspecified chronic kidney disease; C91.11 Chronic lymphocytic leukemia of B-cell type in remission; B37.81 Candidal esophagitis; D62 Acute posthemorrhagic anemia; J96.11 Chronic respiratory failure with hypoxia; I47.2 Ventricular tachycardia; I25.10 Atherosclerotic heart disease of native coronary artery without angina pectoris; I48.0 Paroxysmal atrial fibrillation; I86.4 Gastric varices; J44.9 Chronic obstructive pulmonary disease, unspecified; B33.24 Viral cardiomyopathy; F32.9 Major depressive disorder, single episode, unspecified; F41.9 Anxiety disorder, unspecified; I95.9 Hypotension, unspecified; R59.0 Localized enlarged lymph nodes; K21.9 Gastro-esophageal reflux disease without esophagitis; M19.90 Unspecified osteoarthritis, unspecified site; F17.210 Nicotine dependence, cigarettes, uncomplicated; N18.9 Chronic kidney disease, unspecified; Z99.81 Dependence on supplemental oxygen; Z79.01 Long term (current) use of anticoagulants; Z79.51 Long term (current) use of inhaled steroids; Z79.899 Other long term (current) drug therapy; Z80.51 Family history of malignant neoplasm of kidney; Z82.49 Family history of ischemic heart disease and other diseases of the circulatory system
CPT/HCPCS: 36415; 36430; 43239; 71045; 71250; 74160; 74176; 80053; 82272; 83605; 83690; 83735; 83880; 84100; 84484; 85025; 85379; 85610; 85730; 86885; 86900; 86901; 86920; 87040; 87070; 93005; 94640; 94760; 97116; 97162; 97530; 99152; 99285; A4620; C9113; G0378; J1250; J1265; J1940; J2250; J2270; J2405; J2765; J3010; J7030; J7626; P9016; Q9963; Q9967

== ENCOUNTER 2018-10-28 21:31 | Inpatient (IN) | payer MEDICARE, OTHER ==
[~2018-10-28] VITALS: Ht 188 cm; Wt 109.0 kg
[~2018-10-28 21:31] MED LIST changes: -AMIO200T40 PO; +APIX2.5T PO; -APIX5TAB3 PO; -CARV6.253 PO; +COR3.125T PO; +FLUC100T9 PO; -OMEP20TA5 PO; +PANT40TA4 PO
[2018-10-28 22:50] LABS: BASOPHILS # (AUTO) 0.1 X10'3 (0-0.2); BASOPHILS % (AUTO) 1.5 % (0-1); EOSINOPHILS # (AUTO) 0.2 X10'3 (0-0.9); HEMATOCRIT 27.6 % (42.0-52.0); HEMOGLOBIN 8.6 g/dl (14.0-17.9); LYMPHOCYTES # (AUTO) 2.9 X10'3 (1.1-4.8); LYMPHOCYTES % (AUTO) 31.5 % (21-51); MEAN CORPUSCULAR HEMOGLOBIN 24.9 PG (27.0-31.0); MEAN CORPUSCULAR HGB CONC 31.2 % (33.0-36.5); MEAN CORPUSCULAR VOLUME 79.9 FL (78-98); MEAN PLATELET VOLUME 9.6 FL (7.4-10.4); MONOCYTES # (AUTO) 0.5 X10'3 (0-0.9); MONOCYTES % (AUTO) 5.9 % (2-12); NEUTROPHILS # (AUTO) 5.4 X10'3 (1.8-7.7); NEUTROPHILS % (AUTO) 59.1 % (42-75); PLATELET COUNT 132 X10'3 (140-440); RED BLOOD COUNT 3.45 X10'6 (4.70-6.10); RED CELL DISTRIBUTION WIDTH 18.4 % (11.5-14.5); WHITE BLOOD COUNT 9.1 X10'3 (4.5-11.0)
[2018-10-28 23:02] LABS: ALANINE AMINOTRANSFERASE 21 U/L (12-78); ALBUMIN 3.2 G/DL (3.4-5.0); ALKALINE PHOSPHATASE 99 IU/L (46-116); ANION GAP 4 (8-16); ASPARTATE AMINO TRANSFERASE 15 U/L (10-37); BILIRUBIN,TOTAL 0.6 MG/DL (0.1-1.0); BLOOD UREA NITROGEN 25 MG/DL (7-18); BUN/CREATININE RATIO 15.5 (5.4-32.0); CALCIUM 8.4 MG/DL (8.5-10.1); CHLORIDE 94 MMOL/L (99-107); CREATININE 1.61 MG/DL (0.60-1.10); GLUCOSE 107 MG/DL (70-104); POTASSIUM 4.6 MMOL/L (3.5-5.1); SODIUM 131 MMOL/L (135-145); TOTAL CARBON DIOXIDE 32.6 MMOL/L (24-32); TOTAL PROTEIN 6.3 G/DL (6.4-8.2); eGFR 43 ML/MIN
[2018-10-28 23:03] LABS: INR 1.3 INR; PARTIAL THROMBOPLASTIN TIME 30 SECONDS (22-32); PROTHROMBIN TIME 12.6 SECONDS (9.0-12.0)
[2018-10-28] MEDS ORDERED: furosemide 10 MG/1 ML 10ml inj IV ONE (23:15)
[2018-10-28] MEDS ORDERED: HYDROcodone/acetaminophen 10/325mg tab PO ONE (23:15)
[2018-10-29] MEDS: ipratropium/albuterol 3ml nebule NEB PRN ×4 (01:57→15:03)
[2018-10-29] MEDS ORDERED: ipratropium/albuterol 3ml nebule ONE (01:57)
[2018-10-29] MEDS ORDERED: acetaminophen 325mg tablet PO PRN ×2 (02:20)
[2018-10-29] MEDS ORDERED: docusate sod 100mg capsule PO PRN (02:20)
[2018-10-29 04:30] VITALS: BP 102/69
[2018-10-29 06:00] VITALS: BP 105/73
[2018-10-29] MEDS: furosemide 10 MG/1 ML 10ml inj IV SCH ×2 (07:53→21:25)
[2018-10-29] MEDS ORDERED: non-formulary drug (Ipratropium/Albuterol Sulfate (Combivent Respimat Inhal Spray) 2 PUFFS IH PRN (10:05)
[2018-10-29] MEDS: HYDROcodone/acetaminophen 10/325mg tab PO PRN ×3 (10:38→23:06)
[2018-10-29 11:00] VITALS: BP 109/75
[2018-10-29 15:00] VITALS: BP 108/76
[2018-10-29] MEDS ORDERED: methylPREDNISolone sod succ 125mg/2ml vial IV ONE (16:05)
[2018-10-29] MEDS: montelukast 10mg tablet PO SCH (16:44)
[2018-10-29] MEDS: spironolactone 25 MG tablet PO SCH (16:44)
[2018-10-29] MEDS: lisinopril 5mg tablet PO SCH (16:45)
[2018-10-29] MEDS: DOXYCYCLINE 100MG CAPSULE PO SCH (16:46)
[2018-10-29] MEDS: ondansetron/PF 4mg/2ml inj IV PRN (18:02)
[2018-10-29 19:00] VITALS: BP 107/66
[2018-10-29] MEDS: budesonide 0.5mg/2ml UD nebule IH SCH (20:47)
[2018-10-29] MEDS: ipratropium/albuterol 3ml nebule NEB SCH (20:48)
[2018-10-29] MEDS: methylPREDNISolone sod succ 125mg/2ml vial IV SCH (21:24)
[2018-10-29] MEDS: quetiapine 100mg tablet PO SCH (21:25)
[2018-10-29] MEDS: apixaban 2.5mg tablet PO SCH (21:25)
[2018-10-29] MEDS: lactobacillus rhamnosus 10,000 MMU CELLS/CAPSULE PO SCH (21:25)
[2018-10-29] MEDS: pantoprazole 40mg Tablet.DR PO SCH (21:25)
[2018-10-29] MEDS: gabapentin 300mg capsule PO SCH (21:25)
[2018-10-29] MEDS: carVEDilol 3.125mg tablet PO SCH (21:26)
[2018-10-29] MEDS: amiodarone 200mg tablet PO SCH (21:26)
[2018-10-29 23:00] VITALS: BP 126/76
[2018-10-30] MEDS: ipratropium/albuterol 3ml nebule NEB SCH ×6 (00:04→23:24)
[2018-10-30] MEDS: methylPREDNISolone sod succ 125mg/2ml vial IV SCH ×4 (02:01→20:56)
[2018-10-30 03:00] VITALS: BP 120/77
[2018-10-30 06:00] VITALS: BP 118/69
[2018-10-30 06:11] LABS: ALBUMIN 3.4 G/DL (3.4-5.0); ANION GAP 5 (8-16); BLOOD UREA NITROGEN 28 MG/DL (7-18); BUN/CREATININE RATIO 18.8 (5.4-32.0); CALCIUM 8.5 MG/DL (8.5-10.1); CHLORIDE 93 MMOL/L (99-107); CREATININE 1.49 MG/DL (0.60-1.10); GLUCOSE 173 MG/DL (70-104); POTASSIUM 4.4 MMOL/L (3.5-5.1); SODIUM 129 MMOL/L (135-145); TOTAL CARBON DIOXIDE 31.3 MMOL/L (24-32); eGFR 47 ML/MIN
[2018-10-30 06:12] LABS: BASOPHILS % (AUTO) 0.3 % (0-1); EOSINOPHILS # (AUTO) 0.1 X10'3 (0-0.9); EOSINOPHILS % (AUTO) 1.1 % (0-6); HEMATOCRIT 28.5 % (42.0-52.0); HEMOGLOBIN 8.9 g/dl (14.0-17.9); LYMPHOCYTES # (AUTO) 6.8 X10'3 (1.1-4.8); LYMPHOCYTES % (AUTO) 54.7 % (21-51); MEAN CORPUSCULAR HGB CONC 31.2 % (33.0-36.5); MEAN CORPUSCULAR VOLUME 80.2 FL (78-98); MEAN PLATELET VOLUME 9.3 FL (7.4-10.4); MONOCYTES # (AUTO) 0.1 X10'3 (0-0.9); MONOCYTES % (AUTO) 0.5 % (2-12); NEUTROPHILS # (AUTO) 5.4 X10'3 (1.8-7.7); NEUTROPHILS % (AUTO) 43.4 % (42-75); PLATELET COUNT 124 X10'3 (140-440); RED BLOOD COUNT 3.55 X10'6 (4.70-6.10); WHITE BLOOD COUNT 12.4 X10'3 (4.5-11.0)
[2018-10-30] MEDS: HYDROcodone/acetaminophen 10/325mg tab PO PRN ×4 (07:18→23:05)
[2018-10-30] MEDS: lisinopril 5mg tablet PO SCH (07:19)
[2018-10-30] MEDS: montelukast 10mg tablet PO SCH (07:19)
[2018-10-30] MEDS: pantoprazole 40mg Tablet.DR PO SCH ×2 (07:20→20:54)
[2018-10-30] MEDS: amiodarone 200mg tablet PO SCH ×2 (07:20→20:54)
[2018-10-30] MEDS: apixaban 2.5mg tablet PO SCH ×2 (07:21→20:55)
[2018-10-30] MEDS: lactobacillus rhamnosus 10,000 MMU CELLS/CAPSULE PO SCH ×2 (07:21→20:54)
[2018-10-30] MEDS: furosemide 10 MG/1 ML 10ml inj IV SCH ×2 (07:32→20:56)
[2018-10-30] MEDS: carVEDilol 3.125mg tablet PO SCH ×2 (07:49→20:54)
[2018-10-30] MEDS: spironolactone 25 MG tablet PO SCH (07:54)
[2018-10-30] MEDS: DOXYCYCLINE 100MG CAPSULE PO SCH ×2 (07:55→17:26)
[2018-10-30] MEDS ORDERED: furosemide 20MG tablet PO SCH (08:00)
[2018-10-30 10:27] LABS: ANISOCYTOSIS 2+; PLATELET ESTIMATE DECREASED; TOTAL CELLS COUNTED 100
[2018-10-30 10:28] LABS: ELLIPTOCYTES FEW; SMUDGE CELLS 2+
[2018-10-30] MEDS: fluconazole 100mg tablet PO SCH (10:29)
[2018-10-30] MEDS: budesonide 0.5mg/2ml UD nebule IH SCH ×2 (10:56→19:52)
[2018-10-30 11:00] VITALS: BP 102/60
[2018-10-30 15:00] VITALS: BP 99/70
[2018-10-30] MEDS: ondansetron/PF 4mg/2ml inj IV PRN (17:30)
[2018-10-30 19:00] VITALS: BP 108/69
[2018-10-30] MEDS: gabapentin 300mg capsule PO SCH (20:54)
[2018-10-30] MEDS: sodium chloride 1gm tablet PO SCH (20:54)
[2018-10-30] MEDS: quetiapine 100mg tablet PO SCH (20:54)
[2018-10-30 23:00] VITALS: BP 106/68
[2018-10-31] VITALS (13 sets, daily range): BP systolic 93–155; BP diastolic 48–99
[2018-10-31] MEDS: HYDROcodone/acetaminophen 10/325mg tab PO PRN ×5 (03:22→23:43)
[2018-10-31] MEDS: ipratropium/albuterol 3ml nebule NEB SCH ×6 (03:23→23:11)
[2018-10-31 05:11] LABS: BASOPHILS # (AUTO) 0.2 X10'3 (0-0.2); BASOPHILS % (AUTO) 0.7 % (0-1); EOSINOPHILS # (AUTO) 0.2 X10'3 (0-0.9); EOSINOPHILS % (AUTO) 0.8 % (0-6); HEMATOCRIT 29.1 % (42.0-52.0); LYMPHOCYTES # (AUTO) 12.4 X10'3 (1.1-4.8); LYMPHOCYTES % (AUTO) 49.7 % (21-51); MEAN CORPUSCULAR HEMOGLOBIN 24.9 PG (27.0-31.0); MEAN CORPUSCULAR HGB CONC 30.8 % (33.0-36.5); MEAN CORPUSCULAR VOLUME 80.8 FL (78-98); MEAN PLATELET VOLUME 9.1 FL (7.4-10.4); MONOCYTES # (AUTO) 0.4 X10'3 (0-0.9); MONOCYTES % (AUTO) 1.5 % (2-12); NEUTROPHILS # (AUTO) 11.8 X10'3 (1.8-7.7); NEUTROPHILS % (AUTO) 47.3 % (42-75); PLATELET COUNT 176 X10'3 (140-440); RED CELL DISTRIBUTION WIDTH 18.6 % (11.5-14.5)
[2018-10-31 05:26] LABS: ALBUMIN 3.6 G/DL (3.4-5.0); ANION GAP 4 (8-16); BLOOD UREA NITROGEN 34 MG/DL (7-18); BUN/CREATININE RATIO 19.2 (5.4-32.0); CALCIUM 8.5 MG/DL (8.5-10.1); CHLORIDE 93 MMOL/L (99-107); CREATININE 1.77 MG/DL (0.60-1.10); GLUCOSE 154 MG/DL (70-104); MAGNESIUM 1.5 MG/DL (1.5-2.4); POTASSIUM 4.6 MMOL/L (3.5-5.1); SODIUM 131 MMOL/L (135-145); TOTAL CARBON DIOXIDE 34.1 MMOL/L (24-32); eGFR 39 ML/MIN
[2018-10-31 06:12] LABS: PLATELET ESTIMATE NORMAL; TOTAL CELLS COUNTED 100
[2018-10-31 06:13] LABS: ANISOCYTOSIS 2+; ELLIPTOCYTES FEW; POLYCHROMASIA 1+; SMUDGE CELLS FEW
[2018-10-31] MEDS: budesonide 0.5mg/2ml UD nebule IH SCH ×2 (07:18→19:21)
[2018-10-31] MEDS: lisinopril 5mg tablet PO SCH (08:00)
[2018-10-31] MEDS: pantoprazole 40mg Tablet.DR PO SCH ×2 (08:17→20:29)
[2018-10-31] MEDS: lactobacillus rhamnosus 10,000 MMU CELLS/CAPSULE PO SCH ×2 (08:17→20:29)
[2018-10-31] MEDS: fluconazole 100mg tablet PO SCH (08:17)
[2018-10-31] MEDS: furosemide 10 MG/1 ML 10ml inj IV SCH (08:17)
[2018-10-31] MEDS: methylPREDNISolone sod succ 125mg/2ml vial IV SCH (08:17)
[2018-10-31] MEDS: amiodarone 200mg tablet PO SCH ×2 (08:18→20:28)
[2018-10-31] MEDS: DOXYCYCLINE 100MG CAPSULE PO SCH ×2 (08:18→17:52)
[2018-10-31] MEDS: spironolactone 25 MG tablet PO SCH (08:18)
[2018-10-31] MEDS: carVEDilol 3.125mg tablet PO SCH ×2 (08:18→20:29)
[2018-10-31] MEDS: sodium chloride 1gm tablet PO SCH ×2 (08:18→14:01)
[2018-10-31] MEDS: montelukast 10mg tablet PO SCH (08:18)
[2018-10-31] MEDS: apixaban 2.5mg tablet PO SCH ×2 (08:18→20:29)
[2018-10-31] MEDS ORDERED: furosemide inj 100 ML IV SCH (11:20)
[2018-10-31 12:20] LABS: ALBUMIN 3.5 G/DL (3.4-5.0); ANION GAP 4 (8-16); BLOOD UREA NITROGEN 36 MG/DL (7-18); BUN/CREATININE RATIO 21.2 (5.4-32.0); CALCIUM 8.6 MG/DL (8.5-10.1); CHLORIDE 93 MMOL/L (99-107); GLUCOSE 126 MG/DL (70-104); MAGNESIUM 1.5 MG/DL (1.5-2.4); SODIUM 132 MMOL/L (135-145); eGFR 40 ML/MIN
[2018-10-31] MEDS: furosemide inj 100 MG in normal saline 100ml IV soln 90 ML IV SCH ×2 (13:23→23:37)
[2018-10-31] MEDS: metolazone 2.5mg tablet PO SCH (15:12)
[2018-10-31 18:23] LABS: ALBUMIN 3.6 G/DL (3.4-5.0); ANION GAP 6 (8-16); BLOOD UREA NITROGEN 38 MG/DL (7-18); BUN/CREATININE RATIO 23.5 (5.4-32.0); CALCIUM 8.8 MG/DL (8.5-10.1); CHLORIDE 93 MMOL/L (99-107); CREATININE 1.62 MG/DL (0.60-1.10); GLUCOSE 153 MG/DL (70-104); MAGNESIUM 1.5 MG/DL (1.5-2.4); PHOSPHORUS 3.6 MG/DL (2.3-4.5); POTASSIUM 4.4 MMOL/L (3.5-5.1); SODIUM 134 MMOL/L (135-145); TOTAL CARBON DIOXIDE 35.5 MMOL/L (24-32); eGFR 43 ML/MIN
[2018-10-31] MEDS ORDERED: furosemide 20 MG/2 ML vial IV SCH (20:00)
[2018-10-31] MEDS: gabapentin 300mg capsule PO SCH (20:28)
[2018-10-31] MEDS: quetiapine 100mg tablet PO SCH (20:29)
[2018-10-31] MEDS: methylPREDNISolone sod succ/PF 40mg inj. IV SCH (20:30)
[2018-11-01 01:01] LABS: ALBUMIN 3.8 G/DL (3.4-5.0); ANION GAP 5 (8-16); BLOOD UREA NITROGEN 42 MG/DL (7-18); BUN/CREATININE RATIO 25.1 (5.4-32.0); CALCIUM 8.7 MG/DL (8.5-10.1); CHLORIDE 92 MMOL/L (99-107); CREATININE 1.67 MG/DL (0.60-1.10); GLUCOSE 148 MG/DL (70-104); MAGNESIUM 1.5 MG/DL (1.5-2.4); PHOSPHORUS 3.7 MG/DL (2.3-4.5); POTASSIUM 4.3 MMOL/L (3.5-5.1); SODIUM 134 MMOL/L (135-145); TOTAL CARBON DIOXIDE 36.6 MMOL/L (24-32); eGFR 41 ML/MIN
[2018-11-01 03:00] VITALS: BP 110/73
[2018-11-01] MEDS: ipratropium/albuterol 3ml nebule NEB SCH ×6 (03:03→23:30)
[2018-11-01 06:35] LABS: BASOPHILS % (AUTO) 0.2 % (0-1); EOSINOPHILS # (AUTO) 0.2 X10'3 (0-0.9); HEMATOCRIT 27.7 % (42.0-52.0); HEMOGLOBIN 8.6 g/dl (14.0-17.9); LYMPHOCYTES % (AUTO) 43.6 % (21-51); MEAN CORPUSCULAR HEMOGLOBIN 24.9 PG (27.0-31.0); MEAN CORPUSCULAR HGB CONC 30.9 % (33.0-36.5); MEAN CORPUSCULAR VOLUME 80.4 FL (78-98); MEAN PLATELET VOLUME 9.6 FL (7.4-10.4); MONOCYTES # (AUTO) 0.3 X10'3 (0-0.9); MONOCYTES % (AUTO) 1.6 % (2-12); NEUTROPHILS # (AUTO) 8.7 X10'3 (1.8-7.7); NEUTROPHILS % (AUTO) 53.6 % (42-75); PLATELET COUNT 148 X10'3 (140-440); RED BLOOD COUNT 3.44 X10'6 (4.70-6.10); RED CELL DISTRIBUTION WIDTH 17.7 % (11.5-14.5); WHITE BLOOD COUNT 16.1 X10'3 (4.5-11.0)
[2018-11-01 06:46] LABS: ALBUMIN 3.7 G/DL (3.4-5.0); ANION GAP 4 (8-16); BLOOD UREA NITROGEN 42 MG/DL (7-18); BUN/CREATININE RATIO 25.8 (5.4-32.0); CALCIUM 8.8 MG/DL (8.5-10.1); CHLORIDE 91 MMOL/L (99-107); CREATININE 1.63 MG/DL (0.60-1.10); GLUCOSE 140 MG/DL (70-104); MAGNESIUM 1.5 MG/DL (1.5-2.4); PHOSPHORUS 4.1 MG/DL (2.3-4.5); POTASSIUM 3.9 MMOL/L (3.5-5.1); SODIUM 134 MMOL/L (135-145); TOTAL CARBON DIOXIDE 39.3 MMOL/L (24-32); eGFR 42 ML/MIN
[2018-11-01 07:00] VITALS: BP 118/75
[2018-11-01] MEDS: budesonide 0.5mg/2ml UD nebule IH SCH ×2 (07:09→19:29)
[2018-11-01] MEDS: furosemide inj 100 MG in normal saline 100ml IV soln 90 ML IV SCH ×2 (07:30→10:08)
[2018-11-01] MEDS: apixaban 2.5mg tablet PO SCH ×2 (08:27→20:58)
[2018-11-01] MEDS: lisinopril 5mg tablet PO SCH (08:27)
[2018-11-01] MEDS: pantoprazole 40mg Tablet.DR PO SCH ×2 (08:27→20:57)
[2018-11-01] MEDS: methylPREDNISolone sod succ/PF 40mg inj. IV SCH ×2 (08:27→20:57)
[2018-11-01] MEDS: amiodarone 200mg tablet PO SCH ×2 (08:28→20:58)
[2018-11-01] MEDS: lactobacillus rhamnosus 10,000 MMU CELLS/CAPSULE PO SCH ×2 (08:28→20:58)
[2018-11-01] MEDS: DOXYCYCLINE 100MG CAPSULE PO SCH ×2 (08:28→16:52)
[2018-11-01] MEDS: carVEDilol 3.125mg tablet PO SCH ×2 (08:28→20:58)
[2018-11-01] MEDS: montelukast 10mg tablet PO SCH (08:28)
[2018-11-01] MEDS: spironolactone 25 MG tablet PO SCH (08:35)
[2018-11-01] MEDS: metolazone 2.5mg tablet PO SCH (08:35)
[2018-11-01] MEDS: HYDROcodone/acetaminophen 10/325mg tab PO PRN ×2 (10:12→16:53)
[2018-11-01 11:00] VITALS: BP 96/57
[2018-11-01] MEDS ORDERED: potassium Cl 20 mEq SR tablet PO PRN ×2 (11:20)
[2018-11-01] MEDS ORDERED: magnesium Cl slow-release 64mg tablet PO PRN (11:20)
[2018-11-01] MEDS ORDERED: potassium Cl 40MEQ/NS 500ml 500 ML IV PRN ×2 (11:20)
[2018-11-01] MEDS ORDERED: magnesium 4gm in 100ml NS 100 ML IV PRN (11:20)
[2018-11-01 12:34] LABS: ALANINE AMINOTRANSFERASE 28 U/L (12-78); ALBUMIN 3.8 G/DL (3.4-5.0); ALBUMIN/GLOBULIN RATIO 1.2 (1.1-1.5); ALKALINE PHOSPHATASE 103 IU/L (46-116); ANION GAP 2 (8-16); ASPARTATE AMINO TRANSFERASE 13 U/L (10-37); BILIRUBIN,TOTAL 0.4 MG/DL (0.1-1.0); BLOOD UREA NITROGEN 41 MG/DL (7-18); BUN/CREATININE RATIO 24.4 (5.4-32.0); CHLORIDE 90 MMOL/L (99-107); CREATININE 1.68 MG/DL (0.60-1.10); GLUCOSE 117 MG/DL (70-104); MAGNESIUM 1.5 MG/DL (1.5-2.4); PHOSPHORUS 3.9 MG/DL (2.3-4.5); POTASSIUM 3.8 MMOL/L (3.5-5.1); SODIUM 135 MMOL/L (135-145); TOTAL PROTEIN 6.9 G/DL (6.4-8.2); eGFR 41 ML/MIN
[2018-11-01 12:36] LABS: TOTAL CARBON DIOXIDE 42.9 MMOL/L (24-32)
[2018-11-01] MEDS: ondansetron/PF 4mg/2ml inj IV PRN (16:53)
[2018-11-01 18:00] VITALS: BP 103/62
[2018-11-01 19:11] LABS: ABG BASE EXCESS 14.9 mmol/L (-2.0-3.0); ABG HCO3 41.2 mmol/L (22.0-26.0); ABG OXYGEN SATURATION 97.9 % (95-98); ABG PCO2 (T) 61.5 mmHg (35.0-48.0); ABG PH (T) 7.444 (7.350-7.450); ABG PO2 (T) 111.5 mmHg (83-108); ALLEN'S TEST Positive; FCOHb 0.4 % (0.5-1.5); FLOW 5 L/min; FMetHb 0.2 % (0.3-1.12); FO2Hb 97.3 % (94-100); TOTAL HEMOGLOBIN 10.5 G/dl (14.0-18.0)
[2018-11-01 19:25] LABS: ALBUMIN 3.9 G/DL (3.4-5.0); ALBUMIN/GLOBULIN RATIO 1.2 (1.1-1.5); ANION GAP 4 (8-16); ASPARTATE AMINO TRANSFERASE 17 U/L (10-37); BILIRUBIN,TOTAL 0.5 MG/DL (0.1-1.0); BLOOD UREA NITROGEN 47 MG/DL (7-18); BUN/CREATININE RATIO 25.8 (5.4-32.0); CALCIUM 8.9 MG/DL (8.5-10.1); CHLORIDE 90 MMOL/L (99-107); CREATININE 1.82 MG/DL (0.60-1.10); GLUCOSE 130 MG/DL (70-104); MAGNESIUM 1.5 MG/DL (1.5-2.4); PHOSPHORUS 3.6 MG/DL (2.3-4.5); POTASSIUM 3.9 MMOL/L (3.5-5.1); SODIUM 135 MMOL/L (135-145); TOTAL PROTEIN 7.1 G/DL (6.4-8.2); eGFR 37 ML/MIN
[2018-11-01 19:26] LABS: ALANINE AMINOTRANSFERASE 29 U/L (12-78); ALKALINE PHOSPHATASE 108 IU/L (46-116)
[2018-11-01 19:29] LABS: TOTAL CARBON DIOXIDE 41.4 MMOL/L (24-32)
[2018-11-01] MEDS ORDERED: furosemide 20 MG/2 ML vial IV SCH (20:00)
[2018-11-01] MEDS: gabapentin 300mg capsule PO SCH (20:57)
[2018-11-01] MEDS: quetiapine 100mg tablet PO SCH (20:57)
[2018-11-01 22:00] VITALS: BP 100/65
[2018-11-02 02:43] VITALS: BP 104/60
[2018-11-02] MEDS: ipratropium/albuterol 3ml nebule NEB SCH ×6 (03:22→23:15)
[2018-11-02] MEDS: HYDROcodone/acetaminophen 10/325mg tab PO PRN ×4 (04:40→18:49)
[2018-11-02 05:53] LABS: BASOPHILS # (AUTO) 0.1 X10'3 (0-0.2); BASOPHILS % (AUTO) 0.4 % (0-1); EOSINOPHILS # (AUTO) 0.1 X10'3 (0-0.9); EOSINOPHILS % (AUTO) 0.5 % (0-6); HEMATOCRIT 29.4 % (42.0-52.0); HEMOGLOBIN 8.9 g/dl (14.0-17.9); LYMPHOCYTES # (AUTO) 11.1 X10'3 (1.1-4.8); LYMPHOCYTES % (AUTO) 51.8 % (21-51); MEAN CORPUSCULAR HEMOGLOBIN 24.4 PG (27.0-31.0); MEAN CORPUSCULAR HGB CONC 30.4 % (33.0-36.5); MEAN CORPUSCULAR VOLUME 80.1 FL (78-98); MEAN PLATELET VOLUME 9.2 FL (7.4-10.4); MONOCYTES # (AUTO) 0.3 X10'3 (0-0.9); MONOCYTES % (AUTO) 1.5 % (2-12); NEUTROPHILS # (AUTO) 9.8 X10'3 (1.8-7.7); NEUTROPHILS % (AUTO) 45.8 % (42-75); PLATELET COUNT 178 X10'3 (140-440); RED BLOOD COUNT 3.67 X10'6 (4.70-6.10); RED CELL DISTRIBUTION WIDTH 18.5 % (11.5-14.5); WHITE BLOOD COUNT 21.4 X10'3 (4.5-11.0)
[2018-11-02 06:04] LABS: ALBUMIN 3.6 G/DL (3.4-5.0); ANION GAP 3 (8-16); BLOOD UREA NITROGEN 44 MG/DL (7-18); CALCIUM 8.7 MG/DL (8.5-10.1); CHLORIDE 91 MMOL/L (99-107); CREATININE 1.76 MG/DL (0.60-1.10); GLUCOSE 159 MG/DL (70-104); MAGNESIUM 1.5 MG/DL (1.5-2.4); POTASSIUM 4.3 MMOL/L (3.5-5.1); SODIUM 135 MMOL/L (135-145); eGFR 39 ML/MIN
[2018-11-02 06:11] LABS: TOTAL CARBON DIOXIDE 40.8 MMOL/L (24-32)
[2018-11-02 06:58] VITALS: BP 100/63
[2018-11-02 07:00] VITALS: BP 100/63
[2018-11-02] MEDS: lisinopril 5mg tablet PO SCH ×2 (08:00→08:09)
[2018-11-02] MEDS ORDERED: furosemide 20 MG/2 ML vial IV SCH (08:00)
[2018-11-02] MEDS: carVEDilol 3.125mg tablet PO SCH ×3 (08:00→20:48)
[2018-11-02] MEDS: spironolactone 25 MG tablet PO SCH (08:07)
[2018-11-02] MEDS: apixaban 2.5mg tablet PO SCH ×2 (08:07→20:50)
[2018-11-02] MEDS: pantoprazole 40mg Tablet.DR PO SCH ×2 (08:08→20:50)
[2018-11-02] MEDS: lactobacillus rhamnosus 10,000 MMU CELLS/CAPSULE PO SCH ×2 (08:08→20:49)
[2018-11-02] MEDS: montelukast 10mg tablet PO SCH (08:08)
[2018-11-02] MEDS: DOXYCYCLINE 100MG CAPSULE PO SCH (08:08)
[2018-11-02] MEDS: amiodarone 200mg tablet PO SCH (08:10)
[2018-11-02] MEDS: methylPREDNISolone sod succ/PF 40mg inj. IV SCH (08:38)
[2018-11-02] MEDS: budesonide 0.5mg/2ml UD nebule IH SCH ×2 (08:55→19:30)
[2018-11-02 11:00] VITALS: BP 99/64
[2018-11-02 11:41] LABS: BASOPHILS # (AUTO) 0.2 X10'3 (0-0.2); BASOPHILS % (AUTO) 0.6 % (0-1); EOSINOPHILS # (AUTO) 0.2 X10'3 (0-0.9); EOSINOPHILS % (AUTO) 0.7 % (0-6); HEMATOCRIT 30.5 % (42.0-52.0); HEMOGLOBIN 9.3 g/dl (14.0-17.9); LYMPHOCYTES # (AUTO) 14.5 X10'3 (1.1-4.8); LYMPHOCYTES % (AUTO) 53.3 % (21-51); MEAN CORPUSCULAR HEMOGLOBIN 24.6 PG (27.0-31.0); MEAN CORPUSCULAR HGB CONC 30.6 % (33.0-36.5); MEAN CORPUSCULAR VOLUME 80.5 FL (78-98); MEAN PLATELET VOLUME 8.7 FL (7.4-10.4); MONOCYTES # (AUTO) 0.1 X10'3 (0-0.9); MONOCYTES % (AUTO) 0.5 % (2-12); NEUTROPHILS # (AUTO) 12.2 X10'3 (1.8-7.7); NEUTROPHILS % (AUTO) 44.9 % (42-75); PLATELET COUNT 191 X10'3 (140-440); RED BLOOD COUNT 3.78 X10'6 (4.70-6.10); RED CELL DISTRIBUTION WIDTH 18.6 % (11.5-14.5)
[2018-11-02 11:45] LABS: WHITE BLOOD COUNT 27.2 X10'3 (4.5-11.0)
[2018-11-02 12:14] LABS: TOTAL CELLS COUNTED 100
[2018-11-02 12:15] LABS: ANISOCYTOSIS 2+; HYPOCHROMASIA 1+; PLATELET ESTIMATE NORMAL; SMUDGE CELLS 1+
[2018-11-02 15:00] VITALS: BP 92/65
[2018-11-02] MEDS: sulfamethoxazole/trimethoprim DS (800/160mg) tablet PO SCH (17:00)
[2018-11-02 19:00] VITALS: BP 100/64
[2018-11-02] MEDS: gabapentin 300mg capsule PO SCH (20:50)
[2018-11-02] MEDS: quetiapine 100mg tablet PO SCH (20:51)
[2018-11-03 03:00] VITALS: BP 95/55
[2018-11-03] MEDS: ipratropium/albuterol 3ml nebule NEB SCH ×3 (03:24→12:02)
[2018-11-03 06:00] LABS: BASOPHILS % (AUTO) 0.2 % (0-1); EOSINOPHILS # (AUTO) 0.2 X10'3 (0-0.9); HEMATOCRIT 30.2 % (42.0-52.0); HEMOGLOBIN 9.2 g/dl (14.0-17.9); LYMPHOCYTES # (AUTO) 10.1 X10'3 (1.1-4.8); LYMPHOCYTES % (AUTO) 53.7 % (21-51); MEAN CORPUSCULAR HEMOGLOBIN 24.5 PG (27.0-31.0); MEAN CORPUSCULAR HGB CONC 30.6 % (33.0-36.5); MEAN CORPUSCULAR VOLUME 80.1 FL (78-98); MEAN PLATELET VOLUME 8.8 FL (7.4-10.4); MONOCYTES # (AUTO) 0.6 X10'3 (0-0.9); MONOCYTES % (AUTO) 3.1 % (2-12); NEUTROPHILS # (AUTO) 7.9 X10'3 (1.8-7.7); PLATELET COUNT 177 X10'3 (140-440); RED BLOOD COUNT 3.77 X10'6 (4.70-6.10); RED CELL DISTRIBUTION WIDTH 18.4 % (11.5-14.5); WHITE BLOOD COUNT 18.9 X10'3 (4.5-11.0)
[2018-11-03 06:10] LABS: ALBUMIN 3.6 G/DL (3.4-5.0); ANION GAP 2 (8-16); BLOOD UREA NITROGEN 36 MG/DL (7-18); CALCIUM 8.9 MG/DL (8.5-10.1); CHLORIDE 91 MMOL/L (99-107); GLUCOSE 101 MG/DL (70-104); MAGNESIUM 1.6 MG/DL (1.5-2.4); POTASSIUM 3.9 MMOL/L (3.5-5.1); SODIUM 134 MMOL/L (135-145); eGFR 47 ML/MIN
[2018-11-03 06:36] LABS: TOTAL CARBON DIOXIDE 41.1 MMOL/L (24-32)
[2018-11-03 06:50] LABS: ANISOCYTOSIS 2+; PLATELET ESTIMATE NORMAL
[2018-11-03 06:51] LABS: HYPOCHROMASIA 2+
[2018-11-03 07:00] VITALS: BP 94/72
[2018-11-03] MEDS: budesonide 0.5mg/2ml UD nebule IH SCH (07:28)
[2018-11-03] MEDS ORDERED: furosemide 20 MG/2 ML vial IV SCH (08:00)
[2018-11-03] MEDS: lisinopril 5mg tablet PO SCH (08:23)
[2018-11-03] MEDS: sulfamethoxazole/trimethoprim DS (800/160mg) tablet PO SCH (08:24)
[2018-11-03] MEDS: spironolactone 25 MG tablet PO SCH (08:24)
[2018-11-03] MEDS: montelukast 10mg tablet PO SCH (08:26)
[2018-11-03] MEDS: apixaban 2.5mg tablet PO SCH (08:26)
[2018-11-03] MEDS: pantoprazole 40mg Tablet.DR PO SCH (08:26)
[2018-11-03] MEDS: amiodarone 200mg tablet PO SCH (08:27)
[2018-11-03] MEDS: carVEDilol 3.125mg tablet PO SCH (08:27)
[2018-11-03] MEDS: lactobacillus rhamnosus 10,000 MMU CELLS/CAPSULE PO SCH (08:28)
[2018-11-03] MEDS ORDERED: prednisone 10mg tablet PO SCH (08:30)
[2018-11-03] MEDS ORDERED: furosemide 20MG tablet PO ONE (09:45)
[2018-11-03] MEDS ORDERED: BACDS PO ×2 (10:14→10:15)
[2018-11-03] MEDS ORDERED: AMIO200T54 PO (10:14)
[2018-11-03] MEDS ORDERED: PRED10TA23 PO ×2 (10:14→10:15)
[2018-11-03] MEDS: HYDROcodone/acetaminophen 10/325mg tab PO PRN (10:26)
[2018-11-03 11:00] VITALS: BP 100/62
== END 2018-11-03 14:27 | disposition home or self-care (01) | DRG 291 ==
LOC: ER 21:31 → ED HOLD 10-29 02:16 → PCU 3S 10-29 04:14
PROVIDERS: ADMIT Internal Medicine; ATTEND Internal Medicine
DX: I13.0 Hypertensive heart and chronic kidney disease with heart failure and stage 1 through stage 4 chronic kidney disease, or unspecified chronic kidney disease (principal); I50.23 Acute on chronic systolic (congestive) heart failure; C91.11 Chronic lymphocytic leukemia of B-cell type in remission; J96.10 Chronic respiratory failure, unspecified whether with hypoxia or hypercapnia; J44.1 Chronic obstructive pulmonary disease with (acute) exacerbation; J98.11 Atelectasis; E87.1 Hypo-osmolality and hyponatremia; N17.9 Acute kidney failure, unspecified; J44.0 Chronic obstructive pulmonary disease with (acute) lower respiratory infection; E87.3 Alkalosis; T50.2X5A Adverse effect of carbonic-anhydrase inhibitors, benzothiadiazides and other diuretics, initial encounter; N18.3 Chronic kidney disease, stage 3 (moderate); F43.10 Post-traumatic stress disorder, unspecified; I25.10 Atherosclerotic heart disease of native coronary artery without angina pectoris; I42.9 Cardiomyopathy, unspecified; J20.9 Acute bronchitis, unspecified; K21.9 Gastro-esophageal reflux disease without esophagitis; I86.4 Gastric varices; R91.8 Other nonspecific abnormal finding of lung field; R59.1 Generalized enlarged lymph nodes; R16.1 Splenomegaly, not elsewhere classified; D64.9 Anemia, unspecified; I48.0 Paroxysmal atrial fibrillation; M19.90 Unspecified osteoarthritis, unspecified site; K57.90 Diverticulosis of intestine, part unspecified, without perforation or abscess without bleeding; Z99.81 Dependence on supplemental oxygen; Z79.01 Long term (current) use of anticoagulants; Z79.899 Other long term (current) drug therapy; Z87.891 Personal history of nicotine dependence; Y92.89 Other specified places as the place of occurrence of the external cause
CPT/HCPCS: 36415; 36600; 71045; 80048; 80053; 80069; 82803; 83735; 83880; 84100; 84439; 84443; 84484; 85018; 85025; 85610; 85730; 87070; 87077; 87186; 93005; 94640; 94760; 96374; 97116; 97161; 97530; 99285; G0378; J1940; J2405; J2920; J2930; J7512; J7626

== ENCOUNTER 2019-01-04 11:27 | Inpatient (IN) | payer MEDICARE, OTHER | END 2019-01-07 15:37 | disposition home or self-care (01) | LOC: ER 11:27 → ED HOLD 12:53 → SUR 3N 01-06 17:32 → PCU 3S 15:20 | DX: A41.9 Sepsis, unspecified organism (principal); J18.1 Lobar pneumonia, unspecified organism; J96.01 Acute respiratory failure with hypoxia; J44.1 Chronic obstructive pulmonary disease with (acute) exacerbation; J44.0 Chronic obstructive pulmonary disease with (acute) lower respiratory infection; N17.9 Acute kidney failure, unspecified; N18.3 Chronic kidney disease, stage 3 (moderate) ==

== ENCOUNTER 2019-01-27 20:35 | Emergency (ER) | payer MEDICARE, OTHER ==
[~2019-01-27] VITALS: Ht 188 cm; Wt 108.5 kg
[~2019-01-27 20:35] MED LIST changes: -AMIO200T54 PO; +CARV3.122 PO; +CEFD300C3 PO; -COR3.125T PO; -FLUC100T9 PO; -HYDR-4353 PO; +HYDR-4383 PO; -IPRA4AER IH; +LACT1CAP26 PO; -LACTC PO; +LISI-600 PO; -LISI-604 PO; +MUPI22OI30 TOP; +PANT-47 PO; -PANT40TA4 PO; +QUET200T PO; +SODI51CR6 TOP
[2019-01-27 21:14] LABS: EOSINOPHILS # (AUTO) 0.2 X10'3 (0-0.9); NEUTROPHILS # (AUTO) 4.2 X10'3 (1.8-7.7); NEUTROPHILS % (AUTO) 34.5 % (42-75); RED CELL DISTRIBUTION WIDTH 17.6 % (11.5-14.5)
[2019-01-27 21:15] LABS: BASOPHILS # (AUTO) 0.1 X10'3 (0-0.2); BASOPHILS % (AUTO) 0.5 % (0-1); EOSINOPHILS % (AUTO) 1.2 % (0-6); HEMATOCRIT 32.3 % (42.0-52.0); LYMPHOCYTES # (AUTO) 7.4 X10'3 (1.1-4.8); LYMPHOCYTES % (AUTO) 60.7 % (21-51); MEAN CORPUSCULAR HEMOGLOBIN 22.8 PG (27.0-31.0); MEAN CORPUSCULAR VOLUME 73.6 FL (78-98); MEAN PLATELET VOLUME 7.8 FL (7.4-10.4); MONOCYTES # (AUTO) 0.4 X10'3 (0-0.9); MONOCYTES % (AUTO) 3.1 % (2-12); PLATELET COUNT 139 X10'3 (140-440); RED BLOOD COUNT 4.39 X10'6 (4.70-6.10); WHITE BLOOD COUNT 12.2 X10'3 (4.5-11.0)
[2019-01-27 21:24] LABS: ALANINE AMINOTRANSFERASE 13 U/L (12-78); ALBUMIN 3.6 G/DL (3.4-5.0); ALBUMIN/GLOBULIN RATIO 1.1 (1.1-1.5); ALKALINE PHOSPHATASE 107 IU/L (46-116); ANION GAP 9 (8-16); ASPARTATE AMINO TRANSFERASE 13 U/L (10-37); BILIRUBIN,TOTAL 0.3 MG/DL (0.1-1.0); BLOOD UREA NITROGEN 17 MG/DL (7-18); BUN/CREATININE RATIO 10.8 (5.4-32.0); CALCIUM 8.5 MG/DL (8.5-10.1); CHLORIDE 97 MMOL/L (99-107); CREATININE 1.57 MG/DL (0.60-1.10); GLUCOSE 135 MG/DL (70-104); POTASSIUM 4.3 MMOL/L (3.5-5.1); SODIUM 134 MMOL/L (135-145); TOTAL CARBON DIOXIDE 28.3 MMOL/L (24-32); TOTAL PROTEIN 6.8 G/DL (6.4-8.2); eGFR 44 ML/MIN
[2019-01-27 22:27] LABS: CLARITY,URINE CLEAR (Clear); COLOR,URINE YELLOW (Yellow); GLUCOSE, URINE NEGATIVE (Neg); KETONES,URINE NEGATIVE (Neg); LEUKOCYTE ESTERASE ,URINE NEGATIVE (Neg); NITRITES, URINE NEGATIVE (Neg); OCCULT BLOOD,URINE NEGATIVE (Neg); PH,URINE 7.5 (4.8-8.0); PROTEIN,URINE NEGATIVE (Neg); UROBILINOGEN,URINE 0.2 E.U/dL (0.2-1.0)
[2019-01-27 22:34] LABS: UA COLLECTION TYPE CLN CATCH MIDSTREAM
[2019-01-27 23:39] VITALS: BP 95/70
[2019-01-28 00:10] LABS: ANISOCYTOSIS 1+; ELLIPTOCYTES FEW; HYPOCHROMASIA 1+; MICROCYTOSIS 1+; PLATELET ESTIMATE DECREASED; TEAR DROP CELLS FEW
== END 2019-01-27 23:40 | disposition home or self-care (01) ==
LOC: ER 20:36
DX: R42 Dizziness and giddiness (principal); I11.0 Hypertensive heart disease with heart failure; I50.9 Heart failure, unspecified; I48.91 Unspecified atrial fibrillation; J44.9 Chronic obstructive pulmonary disease, unspecified; K21.9 Gastro-esophageal reflux disease without esophagitis
CPT/HCPCS: 36415; 71045; 80053; 81003; 83605; 83880; 84484; 85025; 93005; 99284

== ENCOUNTER 2019-02-15 10:57 | Emergency (ER) | payer MEDICARE, OTHER ==
[~2019-02-15] VITALS: Ht 188 cm; Wt 111.0 kg
[~2019-02-15 10:57] MED LIST changes: -CEFD300C3 PO
[2019-02-15 11:43] LABS: BASOPHILS # (AUTO) 0.1 X10'3 (0-0.2); BASOPHILS % (AUTO) 0.3 % (0-1); EOSINOPHILS # (AUTO) 0.2 X10'3 (0-0.9); EOSINOPHILS % (AUTO) 0.7 % (0-6); HEMATOCRIT 34.9 % (42.0-52.0); HEMOGLOBIN 10.6 g/dl (14.0-17.9); LYMPHOCYTES # (AUTO) 18.2 X10'3 (1.1-4.8); LYMPHOCYTES % (AUTO) 71.9 % (21-51); MEAN CORPUSCULAR HEMOGLOBIN 22.2 PG (27.0-31.0); MEAN CORPUSCULAR HGB CONC 30.4 g/dL (33.0-36.5); MEAN PLATELET VOLUME 7.5 FL (7.4-10.4); MONOCYTES # (AUTO) 0.6 X10'3 (0-0.9); MONOCYTES % (AUTO) 2.6 % (2-12); NEUTROPHILS # (AUTO) 6.2 X10'3 (1.8-7.7); NEUTROPHILS % (AUTO) 24.5 % (42-75); PLATELET COUNT 173 X10'3 (140-440); RED BLOOD COUNT 4.78 X10'6 (4.70-6.10); RED CELL DISTRIBUTION WIDTH 17.2 % (11.5-14.5)
[2019-02-15 11:45] LABS: WHITE BLOOD COUNT 25.3 X10'3 (4.5-11.0)
[2019-02-15 11:47] LABS: ALANINE AMINOTRANSFERASE 18 U/L (12-78); ALBUMIN 4.2 G/DL (3.4-5.0); ALBUMIN/GLOBULIN RATIO 1.3 (1.1-1.5); ALKALINE PHOSPHATASE 103 IU/L (46-116); ANION GAP 9 (8-16); ASPARTATE AMINO TRANSFERASE 15 U/L (10-37); BILIRUBIN,TOTAL 0.4 MG/DL (0.1-1.0); BLOOD UREA NITROGEN 19 MG/DL (7-18); BUN/CREATININE RATIO 11.7 (5.4-32.0); CALCIUM 9.1 MG/DL (8.5-10.1); CHLORIDE 98 MMOL/L (99-107); CREATININE 1.63 MG/DL (0.60-1.10); GLUCOSE 134 MG/DL (70-104); POTASSIUM 4.2 MMOL/L (3.5-5.1); SODIUM 135 MMOL/L (135-145); TOTAL CARBON DIOXIDE 27.8 MMOL/L (24-32); TOTAL PROTEIN 7.4 G/DL (6.4-8.2); eGFR 42 ML/MIN
[2019-02-15 12:19] VITALS: BP 111/66
[2019-02-15] MEDS ORDERED: CEFD300C3 PO (12:47)
[2019-02-15 12:54] LABS: CLARITY,URINE CLEAR (Clear); COLOR,URINE STRAW (Yellow); GLUCOSE, URINE NEGATIVE (Neg); KETONES,URINE NEGATIVE (Neg); LEUKOCYTE ESTERASE ,URINE NEGATIVE (Neg); NITRITES, URINE NEGATIVE (Neg); OCCULT BLOOD,URINE NEGATIVE (Neg); PROTEIN,URINE NEGATIVE (Neg); UROBILINOGEN,URINE 0.2 E.U/dL (0.2-1.0)
[2019-02-15 13:14] LABS: UA COLLECTION TYPE CLN CATCH MIDSTREAM
[2019-02-15 13:56] LABS: ANISOCYTOSIS 1+; MICROCYTOSIS 1+; PLATELET ESTIMATE NORMAL; SMUDGE CELLS 1+; TOTAL CELLS COUNTED 100
== END 2019-02-15 13:01 | disposition home or self-care (01) ==
LOC: ER 10:57
DX: R04.2 Hemoptysis (principal); R06.02 Shortness of breath; I11.0 Hypertensive heart disease with heart failure; I50.9 Heart failure, unspecified; I48.91 Unspecified atrial fibrillation; J44.9 Chronic obstructive pulmonary disease, unspecified; K21.9 Gastro-esophageal reflux disease without esophagitis
CPT/HCPCS: 36415; 71046; 80053; 81003; 83605; 84145; 85025; 87040; 93005; 99284

== ENCOUNTER 2019-03-21 22:06 | Emergency (ER) | payer MEDICARE, OTHER ==
[~2019-03-21] VITALS: Ht 188 cm; Wt 112.0 kg
[2019-03-21 22:18] VITALS: BP 118/65
[2019-03-21 22:49] LABS: BASOPHILS # (AUTO) 0.1 X10'3 (0-0.2); BASOPHILS % (AUTO) 0.5 % (0-1); EOSINOPHILS # (AUTO) 0.2 X10'3 (0-0.9); HEMOGLOBIN 9.1 g/dl (14.0-17.9); MEAN CORPUSCULAR HEMOGLOBIN 21.9 PG (27.0-31.0); MEAN PLATELET VOLUME 7.1 FL (7.4-10.4); MONOCYTES # (AUTO) 0.7 X10'3 (0-0.9)
[2019-03-21 22:50] LABS: EOSINOPHILS % (AUTO) 0.8 % (0-6); HEMATOCRIT 29.8 % (42.0-52.0); LYMPHOCYTES # (AUTO) 18.1 X10'3 (1.1-4.8); LYMPHOCYTES % (AUTO) 75.3 % (21-51); MEAN CORPUSCULAR HGB CONC 30.6 g/dL (33.0-36.5); MEAN CORPUSCULAR VOLUME 71.5 FL (78-98); MONOCYTES % (AUTO) 2.8 % (2-12); NEUTROPHILS % (AUTO) 20.6 % (42-75); PLATELET COUNT 130 X10'3 (140-440); RED BLOOD COUNT 4.17 X10'6 (4.70-6.10); RED CELL DISTRIBUTION WIDTH 18.6 % (11.5-14.5); WHITE BLOOD COUNT 24.1 X10'3 (4.5-11.0)
[2019-03-21 23:01] LABS: ALANINE AMINOTRANSFERASE 21 U/L (12-78); ALBUMIN 3.7 G/DL (3.4-5.0); ALBUMIN/GLOBULIN RATIO 1.2 (1.1-1.5); ALKALINE PHOSPHATASE 93 IU/L (46-116); ANION GAP 6 (8-16); ASPARTATE AMINO TRANSFERASE 15 U/L (10-37); BILIRUBIN,TOTAL 0.4 MG/DL (0.1-1.0); BLOOD UREA NITROGEN 19 MG/DL (7-18); BUN/CREATININE RATIO 12.5 (5.4-32.0); CALCIUM 8.7 MG/DL (8.5-10.1); CHLORIDE 96 MMOL/L (99-107); CREATININE 1.52 MG/DL (0.60-1.10); GLUCOSE 147 MG/DL (70-104); POTASSIUM 3.7 MMOL/L (3.5-5.1); SODIUM 133 MMOL/L (135-145); TOTAL CARBON DIOXIDE 31.1 MMOL/L (24-32); TOTAL PROTEIN 6.7 G/DL (6.4-8.2); eGFR 46 ML/MIN
[2019-03-21 23:10] LABS: PARTIAL THROMBOPLASTIN TIME 28 SECONDS (22-32)
[2019-03-21 23:27] LABS: ANISOCYTOSIS 2+; ELLIPTOCYTES FEW; MICROCYTOSIS 1+; PLATELET ESTIMATE DECREASED; SMUDGE CELLS 1+; TOTAL CELLS COUNTED 100
== END 2019-03-22 00:52 | disposition home or self-care (01) ==
LOC: ER 22:07
DX: R06.02 Shortness of breath (principal); I11.0 Hypertensive heart disease with heart failure; I50.9 Heart failure, unspecified; I48.91 Unspecified atrial fibrillation; J44.9 Chronic obstructive pulmonary disease, unspecified; K21.9 Gastro-esophageal reflux disease without esophagitis; Z98.890 Other specified postprocedural states; Z79.899 Other long term (current) drug therapy
CPT/HCPCS: 36415; 71045; 71250; 80053; 83605; 83880; 84484; 85025; 85610; 85730; 87040; 93005; 99284

== ENCOUNTER 2019-08-14 13:31 | Inpatient (IN) | payer MEDICARE, OTHER ==
[~2019-08-14] VITALS: Ht 188 cm; Wt 103.2 kg
[~2019-08-14 13:31] MED LIST changes: +ALBU18HF2 INH; +ALBU8.5H8 INH; +AMIO200T61 PO; +ATRIN IH; +DOCU100C41 PO; +FERR324T PO; +FLUT16SP10 NAS; +FLUT16SP2 BOTHNARES; +FURO-149 PO; -HYDR-4383 PO; +IPRA30SP; -LACT1CAP26 PO; +LACT1CAP65 PO; +LIDO35.4 TOP; +LISI-604 PO; +OMEP40CA13 PO; +POTA10TA21 PO; -QUET-1 PO; +SODI56GE9 PO
[2019-08-14] MEDS ORDERED: ipratropium/albuterol 3ml nebule NEB ONE (14:10)
[2019-08-14 14:37] LABS: BASOPHILS # (AUTO) 0.4 X10'3 (0-0.2); BASOPHILS % (AUTO) 0.3 % (0-1); EOSINOPHILS # (AUTO) 0.5 X10'3 (0-0.9); EOSINOPHILS % (AUTO) 0.4 % (0-6); HEMOGLOBIN 8.2 g/dl (14.0-17.9); LYMPHOCYTES % (AUTO) 89.7 % (21-51); MEAN CORPUSCULAR HGB CONC 27.4 g/dL (33.0-36.5); MEAN CORPUSCULAR VOLUME 87.8 FL (78-98); MEAN PLATELET VOLUME 8.5 FL (7.4-10.4); MONOCYTES # (AUTO) 1.9 X10'3 (0-0.9); MONOCYTES % (AUTO) 1.5 % (2-12); NEUTROPHILS # (AUTO) 10.1 X10'3 (1.8-7.7); NEUTROPHILS % (AUTO) 8.1 % (42-75); PLATELET COUNT 151 X10'3 (140-440); RED BLOOD COUNT 3.42 X10'6 (4.70-6.10); RED CELL DISTRIBUTION WIDTH 19.8 % (11.5-14.5)
[2019-08-14 14:40] LABS: ABG BASE EXCESS 18.9 mmol/L (-2.0-3.0); ABG HCO3 45.2 mmol/L (22.0-26.0); ABG OXYGEN SATURATION 87.8 % (95-98); ABG PCO2 (T) 64.6 mmHg (35.0-45.0); ABG PH (T) 7.463 (7.350-7.450); ABG PO2 (T) 55.2 mmHg (83-108); ALLEN'S TEST Positive; FCOHb 0.9 % (0.5-1.5); FMetHb 0.2 % (0.3-1.12); FO2Hb 86.8 % (94-100); TOTAL HEMOGLOBIN 9.2 G/dl (14.0-17.9)
[2019-08-14 14:57] LABS: WHITE BLOOD COUNT 124.7 X10'3 (4.5-11.0)
[2019-08-14 15:01] LABS: ALANINE AMINOTRANSFERASE 22 U/L (12-78); ALBUMIN 3.8 G/DL (3.4-5.0); ALBUMIN/GLOBULIN RATIO 1.3 (1.1-1.5); ALKALINE PHOSPHATASE 91 IU/L (46-116); ANION GAP 2 (8-16); ASPARTATE AMINO TRANSFERASE 26 U/L (10-37); BILIRUBIN,TOTAL 1.4 MG/DL (0.1-1.0); BLOOD UREA NITROGEN 87 MG/DL (7-18); BUN/CREATININE RATIO 32.5 (5.4-32.0); CALCIUM 9.1 MG/DL (8.5-10.1); CHLORIDE 90 MMOL/L (99-107); CREATININE 2.68 MG/DL (0.60-1.10); GLUCOSE 121 MG/DL (70-104); POTASSIUM 3.2 MMOL/L (3.5-5.1); SODIUM 136 MMOL/L (135-145); TOTAL PROTEIN 6.7 G/DL (6.4-8.2); eGFR 24 ML/MIN
[2019-08-14 15:04] LABS: TOTAL CARBON DIOXIDE 43.6 MMOL/L (24-32)
[2019-08-14] MEDS ORDERED: piperacillin/tazo 3.375gm/50ml 50 ML IV ONE (15:10)
[2019-08-14] MEDS ORDERED: vancomycin/NS 1 GM ADD-VANTAGE 250 ML IV ONE ×2 (15:10→18:00)
[2019-08-14 15:14] LABS: ANISOCYTOSIS 2+; LARGE PLATELETS FEW; PLATELET ESTIMATE NORMAL; SMUDGE CELLS 2+; TOTAL CELLS COUNTED 100
[2019-08-14] MEDS ORDERED: normal saline 1000ml 1,000 ML IV SCH (15:40)
[2019-08-14] MEDS ORDERED: potassium CL 10mEq/100ml bag 100 ML IV PRN ×2 (15:40)
[2019-08-14] MEDS ORDERED: magnesium hydroxide 30ml (MOM) UD suspension PO PRN (15:40)
[2019-08-14] MEDS ORDERED: potassium Cl 20 mEq SR tablet PO PRN (15:40)
[2019-08-14] MEDS ORDERED: magnesium 2GM in 50ml NS 50 ML IV PRN (15:40)
[2019-08-14] MEDS ORDERED: mag hydrox/Alum hydrox/simeth 30ml oral suspension PO PRN (15:40)
[2019-08-14] MEDS ORDERED: magnesium Cl slow-release 64mg tablet PO PRN (15:40)
[2019-08-14] MEDS ORDERED: acetaminophen 325mg tablet PO PRN ×2 (15:40)
[2019-08-14] MEDS ORDERED: magnesium 4gm in 100ml NS 100 ML IV PRN (15:40)
[2019-08-14] MEDS ORDERED: HYDROcodone/acetaminophen 5mg/325mg tablet PO PRN (15:40)
[2019-08-14] MEDS ORDERED: ipratropium/albuterol 3ml nebule NEB PRN (15:40)
[2019-08-14] MEDS ORDERED: ZAR2.5T PO (16:25)
[2019-08-14] MEDS ORDERED: QUET-1 PO (16:25)
[2019-08-14] MEDS ORDERED: HYDR-4353 PO (16:25)
--- NOTE | 2019-08-14 17:39 | NUR ---
Pt has been transferred from ED to [facility] 1998 via yobany w/ rn @6302, pt tranferred to bed, mobile [address], IV Vanco and IVF running, all needs met at this time, will continue to monitor. Addendum: 08/14/19 at 1750 by Kelsey Hooper RN VS 118/63 90 24 96% on max flow rate, Paged RT for Bipap per md orders
[2019-08-14 18:00] VITALS: BP 135/76
[2019-08-14] MEDS: K and/or MAG REPLACEMENT MC SCH (19:52)
[2019-08-14] MEDS: piperacillin/tazo 3.375gm/50ml 50 ML IV SCH (19:58)
[2019-08-14] MEDS ORDERED: non-formulary drug (Budesonide/Formoterol Fumarate (Symbicort 160-4.5 Mcg Inhaler) 2 PUFFS INH SCH (20:00)
[2019-08-14] MEDS: budesonide 0.5mg/2ml UD nebule IH SCH (20:04)
[2019-08-14] MEDS: ipratropium/albuterol 3ml nebule NEB SCH ×2 (20:04→23:19)
[2019-08-14] MEDS: albuterol 2.5 MG/3 ML nebule NEB SCH (20:05)
[2019-08-14] MEDS: furosemide 40mg/4ml inj IV SCH (20:15)
[2019-08-14] MEDS: quetiapine 100mg tablet PO SCH (20:16)
[2019-08-14] MEDS: amiodarone 200mg tablet PO SCH (20:16)
[2019-08-14] MEDS: carVEDilol 3.125mg tablet PO SCH (20:17)
[2019-08-14] MEDS: apixaban 2.5mg tablet PO SCH (20:17)
[2019-08-14] MEDS: HYDROcodone/acetaminophen 10/325mg tab PO SCH (20:18)
[2019-08-14] MEDS: gabapentin 300mg capsule PO SCH (20:18)
[2019-08-14] MEDS: docusate sod 100mg capsule PO SCH (20:19)
[2019-08-14] MEDS: potassium chloride 10mEq ER tablet PO SCH (20:19)
[2019-08-14] MEDS: pantoprazole 40mg Tablet.DR PO SCH (20:19)
[2019-08-14] MEDS ORDERED: temazepam 15mg capsule PO PRN (21:00)
[2019-08-14 22:00] VITALS: BP 98/57
[2019-08-15] VITALS (8 sets, daily range): BP systolic 90–107; BP diastolic 48–59
[2019-08-15] MEDS: piperacillin/tazo 3.375gm/50ml 50 ML IV SCH ×3 (00:19→16:10)
[2019-08-15] MEDS: HYDROcodone/acetaminophen 10/325mg tab PO SCH ×4 (02:00→20:00)
[2019-08-15 02:38] LABS: ALANINE AMINOTRANSFERASE 17 U/L (12-78); ALBUMIN 3.3 G/DL (3.4-5.0); ALBUMIN/GLOBULIN RATIO 1.1 (1.1-1.5); ALKALINE PHOSPHATASE 78 IU/L (46-116); ASPARTATE AMINO TRANSFERASE 26 U/L (10-37); BILIRUBIN,TOTAL 1.7 MG/DL (0.1-1.0); BLOOD UREA NITROGEN 77 MG/DL (7-18); BUN/CREATININE RATIO 32.4 (5.4-32.0); CALCIUM 8.7 MG/DL (8.5-10.1); CHLORIDE 92 MMOL/L (99-107); CREATININE 2.38 MG/DL (0.60-1.10); GLUCOSE 110 MG/DL (70-104); POTASSIUM 3.8 MMOL/L (3.5-5.1); SODIUM 140 MMOL/L (135-145); TOTAL PROTEIN 6.2 G/DL (6.4-8.2); eGFR 27 ML/MIN
[2019-08-15 02:41] LABS: MAGNESIUM 1.7 MG/DL (1.5-2.4); PHOSPHORUS 4.1 MG/DL (2.3-4.5)
[2019-08-15 02:50] LABS: BASOPHILS % (AUTO) 0.2 % (0-1); MEAN CORPUSCULAR VOLUME 86.6 FL (78-98); MEAN PLATELET VOLUME 8.4 FL (7.4-10.4)
[2019-08-15 02:53] LABS: BASOPHILS # (AUTO) 0.1 X10'3 (0-0.2); EOSINOPHILS # (AUTO) 0.2 X10'3 (0-0.9); EOSINOPHILS % (AUTO) 0.2 % (0-6); HEMATOCRIT 25.9 % (42.0-52.0); HEMOGLOBIN 7.4 g/dl (14.0-17.9); LYMPHOCYTES # (AUTO) 74.7 X10'3 (1.1-4.8); LYMPHOCYTES % (AUTO) 89.1 % (21-51); MEAN CORPUSCULAR HEMOGLOBIN 24.6 PG (27.0-31.0); MEAN CORPUSCULAR HGB CONC 28.5 g/dL (33.0-36.5); MONOCYTES # (AUTO) 1.5 X10'3 (0-0.9); MONOCYTES % (AUTO) 1.8 % (2-12); NEUTROPHILS # (AUTO) 7.3 X10'3 (1.8-7.7); NEUTROPHILS % (AUTO) 8.7 % (42-75); PLATELET COUNT 113 X10'3 (140-440); RED BLOOD COUNT 2.99 X10'6 (4.70-6.10)
[2019-08-15 03:02] LABS: ANION GAP 3 (8-16)
[2019-08-15 03:03] LABS: TOTAL CARBON DIOXIDE 45.3 MMOL/L (24-32)
[2019-08-15] MEDS: albuterol 2.5 MG/3 ML nebule NEB SCH ×2 (03:37→19:26)
[2019-08-15 04:10] LABS: WHITE BLOOD COUNT 83.9 X10'3 (4.5-11.0)
--- NOTE | 2019-08-15 06:34 | NUR ---
Student Medication Administration: For this medication-pass time frame, all medication were reviewed, dispensed, administered and documented per hospital policy by Meg ADAMES. Student documentation: I have reviewed and agree with all interventions, assessments performed and documented by Meg ADAMES.
--- NOTE | 2019-08-15 06:36 | NUR ---
Problems reprioritized. Patient report given, questions answered & plan of care reviewed with Toña ROSALES & Valeria RN.
--- NOTE | 2019-08-15 06:37 | NUR ---
Patient in room PCU 3010. I have received report from Juanis ROSALES and had the opportunity to ask questions and assume patient care. Patient awake in bed and in no acute distress. All immediate needs met at this time.
[2019-08-15] MEDS: ipratropium/albuterol 3ml nebule NEB SCH ×5 (06:55→23:47)
[2019-08-15] MEDS: budesonide 0.5mg/2ml UD nebule IH SCH ×2 (06:55→19:26)
[2019-08-15] MEDS: apixaban 2.5mg tablet PO SCH (07:23)
[2019-08-15] MEDS: amiodarone 200mg tablet PO SCH ×2 (07:23→20:00)
[2019-08-15] MEDS: pantoprazole 40mg Tablet.DR PO SCH ×2 (07:23→19:58)
[2019-08-15] MEDS: furosemide 40mg/4ml inj IV SCH ×2 (07:23→19:58)
[2019-08-15] MEDS: potassium chloride 10mEq ER tablet PO SCH ×3 (07:23→21:01)
[2019-08-15] MEDS: carVEDilol 3.125mg tablet PO SCH ×2 (07:24→19:58)
[2019-08-15] MEDS ORDERED: FLUTICASONE PROPIONATE NAS SCH (08:00)
[2019-08-15 08:04] LABS: ANISOCYTOSIS 2+; PLATELET ESTIMATE DECREASED; TOTAL CELLS COUNTED 100
[2019-08-15 08:05] LABS: LARGE PLATELETS FEW; SMUDGE CELLS 2+
[2019-08-15] MEDS: K and/or MAG REPLACEMENT MC SCH (08:56)
[2019-08-15] MEDS: fluticasone nasal spray 16GM bottle NS SCH (09:25)
--- NOTE | 2019-08-15 13:19 | NUR ---
New orders from Dr. Kennedy: I/R for Thoracentesis for Right pleural effusion Replace Potassium to 4.0. Replace magnesium to 2.0 Give 40 mg IV lasix for SPB > 90. Give 3.125 PO coreg for SBP > 100.
[2019-08-15] MEDS ORDERED: magnesium Cl slow-release 64mg tablet PO PRN (13:20)
[2019-08-15] MEDS: ondansetron/PF 4mg/2ml inj IV PRN (13:36)
--- NOTE | 2019-08-15 18:28 | NUR ---
Problems reprioritized. Patient report given, questions answered & plan of care reviewed with Krista ROSALES .
--- NOTE | 2019-08-15 18:39 | NUR ---
Orientee documentation: I have reviewed and agree with all interventions, assessments performed and documented by CONNIE Shaw. Orientee Medication Administration: For this medication-pass time frame, all medication were reviewed, dispensed, administered and documented per hospital policy by Valeria ROSALES.
--- NOTE | 2019-08-15 18:50 | NUR ---
Problems reprioritized. Patient report given, questions answered & plan of care reviewed with CONNIE Velasco. Patient stable at transfer of care.
[2019-08-15] MEDS: lactobacillus rhamnosus 10,000 MMU CELLS/CAPSULE PO SCH (19:58)
[2019-08-15] MEDS: docusate sod 100mg capsule PO SCH (21:01)
[2019-08-15] MEDS: gabapentin 300mg capsule PO SCH (21:01)
[2019-08-15] MEDS: quetiapine 100mg tablet PO SCH (21:02)
[2019-08-16] VITALS (9 sets, daily range): BP systolic 73–114; BP diastolic 50–63
[2019-08-16] MEDS: piperacillin/tazo 3.375gm/50ml 50 ML IV SCH ×3 (01:27→15:32)
[2019-08-16] MEDS: HYDROcodone/acetaminophen 10/325mg tab PO SCH ×5 (02:00→20:33)
[2019-08-16] MEDS: albuterol 2.5 MG/3 ML nebule NEB SCH ×2 (03:02→19:07)
[2019-08-16 06:13] LABS: EOSINOPHILS % (AUTO) 0.1 % (0-6); MEAN PLATELET VOLUME 8.4 FL (7.4-10.4)
--- NOTE | 2019-08-16 06:15 | NUR ---
Problems reprioritized. Patient report given, questions answered & plan of care reviewed with Toña ROSALES and Valeria RN.
[2019-08-16 06:18] LABS: BASOPHILS % (AUTO) 0 % (0-1); EOSINOPHILS # (AUTO) 0.1 X10'3 (0-0.9); HEMATOCRIT 25.1 % (42.0-52.0); LYMPHOCYTES # (AUTO) 60.4 X10'3 (1.1-4.8); LYMPHOCYTES % (AUTO) 88.3 % (21-51); MEAN CORPUSCULAR HEMOGLOBIN 24.6 PG (27.0-31.0); MEAN CORPUSCULAR VOLUME 87.9 FL (78-98); MONOCYTES # (AUTO) 0.9 X10'3 (0-0.9); MONOCYTES % (AUTO) 1.4 % (2-12); NEUTROPHILS % (AUTO) 10.2 % (42-75); PLATELET COUNT 112 X10'3 (140-440); RED BLOOD COUNT 2.85 X10'6 (4.70-6.10)
--- NOTE | 2019-08-16 06:25 | NUR ---
Patient in room PCU 3010. I have received report from Krista ROSALES and had the opportunity to ask questions and assume patient care.
--- NOTE | 2019-08-16 06:25 | NUR ---
Patient in room PCU 3010. I have received report from Krista ROSALES and had the opportunity to ask questions and assume patient care. Patient asleep in bed. Bi-pap on 55% FiO2. All immediate needs met at this time.
[2019-08-16 06:31] LABS: ALANINE AMINOTRANSFERASE 16 U/L (12-78); ALBUMIN 3.2 G/DL (3.4-5.0); ALKALINE PHOSPHATASE 73 IU/L (46-116); ASPARTATE AMINO TRANSFERASE 17 U/L (10-37); BILIRUBIN,TOTAL 1.5 MG/DL (0.1-1.0); BLOOD UREA NITROGEN 77 MG/DL (7-18); BUN/CREATININE RATIO 32.2 (5.4-32.0); CALCIUM 8.9 MG/DL (8.5-10.1); CHLORIDE 92 MMOL/L (99-107); CREATININE 2.39 MG/DL (0.60-1.10); GLUCOSE 82 MG/DL (70-104); MAGNESIUM 1.5 MG/DL (1.5-2.4); PHOSPHORUS 3.8 MG/DL (2.3-4.5); SODIUM 143 MMOL/L (135-145); TOTAL PROTEIN 6.4 G/DL (6.4-8.2); eGFR 27 ML/MIN
[2019-08-16 06:32] LABS: WHITE BLOOD COUNT 68.3 X10'3 (4.5-11.0)
--- NOTE | 2019-08-16 06:35 | NUR ---
Paged Dr. Snowden with critical labs: PAGER ID: [phone] MESSAGE: RE: Mayito Villeda [phone]. Critical labs: WBC 68.3, Hgb 7.0, Hct 25.1, Platelets 112. Thank you. Toña [phone]
[2019-08-16] MEDS: ipratropium/albuterol 3ml nebule NEB SCH ×5 (06:47→22:52)
[2019-08-16] MEDS: budesonide 0.5mg/2ml UD nebule IH SCH ×2 (06:47→19:06)
[2019-08-16 06:52] LABS: ANION GAP 7 (8-16)
[2019-08-16 06:55] LABS: POTASSIUM 2.7 MMOL/L (3.5-5.1)
--- NOTE | 2019-08-16 07:00 | NUR ---
Paged Dr. Snowden: PAGER ID: [phone] MESSAGE: Mayito Villeda 3178. Critical labs: Potassium 2.7, CO2 44.0. Thank you. Toña [phone]
[2019-08-16] MEDS: fluticasone nasal spray 16GM bottle NS SCH (07:31)
[2019-08-16] MEDS: furosemide 40mg/4ml inj IV SCH ×2 (07:32→20:24)
[2019-08-16] MEDS: amiodarone 200mg tablet PO SCH ×2 (07:33→20:29)
[2019-08-16] MEDS: lactobacillus rhamnosus 10,000 MMU CELLS/CAPSULE PO SCH ×2 (07:33→20:27)
[2019-08-16] MEDS: carVEDilol 3.125mg tablet PO SCH ×2 (07:33→20:00)
[2019-08-16] MEDS: potassium chloride 10mEq ER tablet PO SCH ×3 (07:34→20:29)
[2019-08-16] MEDS: potassium Cl 20 mEq SR tablet PO PRN ×3 (07:34→15:31)
--- NOTE | 2019-08-16 07:34 | NUR ---
Administered 10mg PO [place]. Two patient identifier was used, [employer] didn't save in computer.
[2019-08-16] MEDS: pantoprazole 40mg Tablet.DR PO SCH ×2 (07:35→20:27)
[2019-08-16] MEDS: apixaban 2.5mg tablet PO SCH (08:00)
[2019-08-16] MEDS: K and/or MAG REPLACEMENT MC SCH (08:18)
[2019-08-16] MEDS: acetaZOLAMIDE 250mg tablet PO SCH ×2 (09:26→20:27)
[2019-08-16 09:41] LABS: ANISOCYTOSIS 2+; PLATELET ESTIMATE DECREASED; SMUDGE CELLS 3+; TOTAL CELLS COUNTED 100
[2019-08-16 09:42] LABS: STOMATOCYTES 1+
--- NOTE | 2019-08-16 18:13 | NUR ---
Problems reprioritized. Patient report given, questions answered & plan of care reviewed with Krista ROSALES. Patient stable at transfer of care.
--- NOTE | 2019-08-16 18:14 | NUR ---
Orientee documentation: I have reviewed and agree with all interventions, assessments performed and documented by CONNIE Shaw. Orientee Medication Administration: For this medication-pass time frame, all medication were reviewed, dispensed, administered and documented per hospital policy by CONNIE Shaw.
--- NOTE | 2019-08-16 19:16 | NUR ---
Patient in room PCU 3010. I have received report from Toña RN and Valeria RN and had the opportunity to ask questions and assume patient care. Patient is resting, O2 sat. 95% on High flow NC.
[2019-08-16] MEDS: gabapentin 300mg capsule PO SCH (20:27)
[2019-08-16] MEDS: docusate sod 100mg capsule PO SCH (20:27)
[2019-08-16] MEDS: quetiapine 100mg tablet PO SCH (20:29)
[2019-08-17] VITALS (14 sets, daily range): BP systolic 95–144; BP diastolic 49–109
[2019-08-17] MEDS: piperacillin/tazo 3.375gm/50ml 50 ML IV SCH ×2 (00:32→07:58)
[2019-08-17] MEDS: HYDROcodone/acetaminophen 10/325mg tab PO SCH ×4 (02:00→20:15)
[2019-08-17] MEDS: albuterol 2.5 MG/3 ML nebule NEB SCH (03:35)
[2019-08-17 05:22] LABS: EOSINOPHILS # (AUTO) 0.1 X10'3 (0-0.9); LYMPHOCYTES # (AUTO) 70.1 X10'3 (1.1-4.8); RED CELL DISTRIBUTION WIDTH 19.7 % (11.5-14.5)
[2019-08-17 05:26] LABS: BASOPHILS # (AUTO) 0.1 X10'3 (0-0.2); BASOPHILS % (AUTO) 0.1 % (0-1); EOSINOPHILS % (AUTO) 0.1 % (0-6); HEMATOCRIT 27.1 % (42.0-52.0); HEMOGLOBIN 7.5 g/dl (14.0-17.9); MEAN CORPUSCULAR HEMOGLOBIN 24.8 PG (27.0-31.0); MEAN CORPUSCULAR HGB CONC 27.7 g/dL (33.0-36.5); MEAN CORPUSCULAR VOLUME 89.6 FL (78-98); MEAN PLATELET VOLUME 8.8 FL (7.4-10.4); MONOCYTES # (AUTO) 1.2 X10'3 (0-0.9); MONOCYTES % (AUTO) 1.5 % (2-12); NEUTROPHILS # (AUTO) 8.2 X10'3 (1.8-7.7); NEUTROPHILS % (AUTO) 10.3 % (42-75); PLATELET COUNT 128 X10'3 (140-440); RED BLOOD COUNT 3.03 X10'6 (4.70-6.10)
[2019-08-17 05:43] LABS: ALANINE AMINOTRANSFERASE 15 U/L (12-78); ALBUMIN 3.2 G/DL (3.4-5.0); ALBUMIN/GLOBULIN RATIO 0.9 (1.1-1.5); ALKALINE PHOSPHATASE 80 IU/L (46-116); ANION GAP 6 (8-16); ASPARTATE AMINO TRANSFERASE 16 U/L (10-37); BILIRUBIN,TOTAL 1.5 MG/DL (0.1-1.0); BLOOD UREA NITROGEN 79 MG/DL (7-18); BUN/CREATININE RATIO 28.9 (5.4-32.0); CALCIUM 8.8 MG/DL (8.5-10.1); CHLORIDE 93 MMOL/L (99-107); CREATININE 2.73 MG/DL (0.60-1.10); GLUCOSE 93 MG/DL (70-104); MAGNESIUM 1.7 MG/DL (1.5-2.4); PHOSPHORUS 4.6 MG/DL (2.3-4.5); POTASSIUM 3.6 MMOL/L (3.5-5.1); SODIUM 142 MMOL/L (135-145); TOTAL PROTEIN 6.6 G/DL (6.4-8.2); eGFR 23 ML/MIN
--- NOTE | 2019-08-17 06:00 | NUR ---
Patient in room PCU 3010. I have received report from Krista ROSALES and had the opportunity to ask questions and assume patient care.
[2019-08-17 06:04] LABS: TOTAL CARBON DIOXIDE 43.3 MMOL/L (24-32)
[2019-08-17 06:16] LABS: WHITE BLOOD COUNT 79.7 X10'3 (4.5-11.0)
--- NOTE | 2019-08-17 06:23 | NUR ---
Problems reprioritized. Patient report given, questions answered & plan of care reviewed with Puneet ROSALES and Eva ROSALES.
--- NOTE | 2019-08-17 06:27 | NUR ---
Received critical CO2 (43.3). Let Dr. Mejia know about the lab result, instructed to pass it on to daytime nurse/ hospitalist.
[2019-08-17] MEDS: ipratropium/albuterol 3ml nebule NEB SCH ×5 (06:52→23:27)
[2019-08-17] MEDS: budesonide 0.5mg/2ml UD nebule IH SCH ×2 (06:53→18:43)
--- NOTE | 2019-08-17 07:02 | NUR ---
Patient in room PCU 3010. I have received report from CONNIE Velasco and had the opportunity to ask questions and assume patient care.
[2019-08-17] MEDS: fluticasone nasal spray 16GM bottle NS SCH (07:59)
[2019-08-17] MEDS: amiodarone 200mg tablet PO SCH ×2 (07:59→20:11)
[2019-08-17] MEDS: lactobacillus rhamnosus 10,000 MMU CELLS/CAPSULE PO SCH ×2 (07:59→20:10)
[2019-08-17] MEDS: K and/or MAG REPLACEMENT MC SCH (08:00)
[2019-08-17] MEDS: acetaZOLAMIDE 250mg tablet PO SCH (08:00)
[2019-08-17] MEDS: furosemide 40mg/4ml inj IV SCH ×2 (08:00→23:21)
[2019-08-17] MEDS: potassium chloride 10mEq ER tablet PO SCH ×3 (08:00→20:10)
[2019-08-17] MEDS: pantoprazole 40mg Tablet.DR PO SCH ×2 (08:00→20:11)
[2019-08-17 08:48] LABS: ANISOCYTOSIS 2+; PLATELET ESTIMATE DECREASED; TOTAL CELLS COUNTED 100
[2019-08-17 08:49] LABS: SMUDGE CELLS 3+; STOMATOCYTES 1+
[2019-08-17 08:50] LABS: LARGE PLATELETS FEW
[2019-08-17] MEDS: CefTRIAXone/D5W-Rocephin 1gm 50 ML IV SCH (09:23)
[2019-08-17] MEDS ORDERED: gelatin sponge, absorbable (Gelfoam 12-7MM) sponge TP ONE (10:35)
[2019-08-17] MEDS: carVEDilol 3.125mg tablet PO SCH ×2 (10:52→20:00)
--- NOTE | 2019-08-17 12:32 | NUR ---
PAGER ID: [phone] MESSAGE: Re: Mayito Villeda, Room: 3010. Pt just received Thoracentesis. 560ml of bloody fluid removed. We have a sample of fluid, do you want to culture the fluid? -Puneet [facility] #[id number] Dr. Berger paged concerning Thoracentesis performed on Pt.
[2019-08-17 14:39] LABS: BF RBC COUNT 417000 /CU MM; BF WBC COUNT 6150 /CU MM (0-1000); BFAPPEAR BLOODY; BFCOLOR RED; BFVOLUME 50 ML; EOSINOPHILS,BODY FLUID 1 %; LYMPHOCYTES,BODY FLUID 33 %; MONOCYTES,BODY FLUID 2 %; NEUTROPHILS,BODY FLUID 64 %
--- NOTE | 2019-08-17 18:00 | NUR ---
Problems reprioritized. Patient report given, questions answered & plan of care reviewed with Krista ROSALES.
--- NOTE | 2019-08-17 18:00 | NUR ---
I have checked Eva ROSALES (orientee) charting and I agree with it.
--- NOTE | 2019-08-17 18:22 | NUR ---
Problems reprioritized. Patient report given, questions answered & plan of care reviewed with CONNIE Velasco.
[2019-08-17] MEDS: apixaban 2.5mg tablet PO SCH (20:11)
[2019-08-17] MEDS: quetiapine 100mg tablet PO SCH (20:11)
[2019-08-17] MEDS: docusate sod 100mg capsule PO SCH (20:12)
[2019-08-17] MEDS: gabapentin 300mg capsule PO SCH (20:12)
[2019-08-18] VITALS (12 sets, daily range): BP systolic 81–128; BP diastolic 37–89
[2019-08-18] MEDS: HYDROcodone/acetaminophen 10/325mg tab PO SCH ×4 (02:00→21:09)
[2019-08-18 05:02] LABS: HEMOGLOBIN 7.7 g/dl (14.0-17.9); LYMPHOCYTES # (AUTO) 49.3 X10'3 (1.1-4.8); MONOCYTES # (AUTO) 0.8 X10'3 (0-0.9); MONOCYTES % (AUTO) 1.4 % (2-12)
[2019-08-18 05:05] LABS: BASOPHILS # (AUTO) 0.1 X10'3 (0-0.2); BASOPHILS % (AUTO) 0.2 % (0-1); EOSINOPHILS % (AUTO) 0 % (0-6); HEMATOCRIT 27.6 % (42.0-52.0); LYMPHOCYTES % (AUTO) 84.2 % (21-51); MEAN CORPUSCULAR HEMOGLOBIN 24.8 PG (27.0-31.0); MEAN CORPUSCULAR HGB CONC 27.7 g/dL (33.0-36.5); MEAN CORPUSCULAR VOLUME 89.4 FL (78-98); NEUTROPHILS # (AUTO) 8.3 X10'3 (1.8-7.7); NEUTROPHILS % (AUTO) 14.2 % (42-75); PLATELET COUNT 119 X10'3 (140-440); RED BLOOD COUNT 3.09 X10'6 (4.70-6.10); RED CELL DISTRIBUTION WIDTH 19.6 % (11.5-14.5)
[2019-08-18 05:11] LABS: WHITE BLOOD COUNT 58.6 X10'3 (4.5-11.0)
--- NOTE | 2019-08-18 05:27 | NUR ---
Lab called with a critical WBC count 58.6. Count is trending downward, yesterday's value was 79.7
[2019-08-18 05:35] LABS: ALANINE AMINOTRANSFERASE 19 U/L (12-78); ALBUMIN 3.3 G/DL (3.4-5.0); ALKALINE PHOSPHATASE 92 IU/L (46-116); ANION GAP 5 (8-16); ASPARTATE AMINO TRANSFERASE 24 U/L (10-37); BILIRUBIN,TOTAL 1.3 MG/DL (0.1-1.0); BLOOD UREA NITROGEN 82 MG/DL (7-18); BUN/CREATININE RATIO 26.8 (5.4-32.0); CALCIUM 8.9 MG/DL (8.5-10.1); CHLORIDE 96 MMOL/L (99-107); CREATININE 3.06 MG/DL (0.60-1.10); GLUCOSE 106 MG/DL (70-104); MAGNESIUM 2.2 MG/DL (1.5-2.4); PHOSPHORUS 4.8 MG/DL (2.3-4.5); POTASSIUM 3.7 MMOL/L (3.5-5.1); SODIUM 144 MMOL/L (135-145); TOTAL PROTEIN 6.6 G/DL (6.4-8.2); eGFR 20 ML/MIN
[2019-08-18 06:24] LABS: TOTAL CARBON DIOXIDE 43.4 MMOL/L (24-32)
--- NOTE | 2019-08-18 06:28 | NUR ---
Problems reprioritized. Patient report given, questions answered & plan of care reviewed with Estee ROSALES.
--- NOTE | 2019-08-18 06:28 | NUR ---
Patient in room PCU 3010. I have received report from CONNIE Velasco and had the opportunity to ask questions and assume patient care.
[2019-08-18 07:00] LABS: NUCLEATED RED BLOOD CELLS 1 /100WBC (0-0); TOTAL CELLS COUNTED 100
[2019-08-18 07:01] LABS: ANISOCYTOSIS 2+; PLATELET ESTIMATE DECREASED
[2019-08-18 07:02] LABS: SMUDGE CELLS 3+
[2019-08-18 07:03] LABS: HYPOCHROMASIA 1+; STOMATOCYTES 2+
[2019-08-18] MEDS: CefTRIAXone/D5W-Rocephin 1gm 50 ML IV SCH (07:56)
[2019-08-18] MEDS: lactobacillus rhamnosus 10,000 MMU CELLS/CAPSULE PO SCH ×2 (07:56→21:06)
[2019-08-18] MEDS: fluticasone nasal spray 16GM bottle NS SCH (07:56)
[2019-08-18] MEDS: apixaban 2.5mg tablet PO SCH ×2 (07:57→21:06)
[2019-08-18] MEDS: potassium chloride 10mEq ER tablet PO SCH ×3 (07:58→21:06)
[2019-08-18] MEDS: pantoprazole 40mg Tablet.DR PO SCH ×2 (07:58→21:07)
[2019-08-18] MEDS: ipratropium/albuterol 3ml nebule NEB SCH ×5 (07:59→23:35)
[2019-08-18] MEDS: K and/or MAG REPLACEMENT MC SCH (08:00)
[2019-08-18] MEDS: carVEDilol 3.125mg tablet PO SCH ×2 (08:00→21:07)
[2019-08-18] MEDS: amiodarone 200mg tablet PO SCH ×2 (08:00→21:06)
[2019-08-18] MEDS: furosemide 40mg/4ml inj IV SCH ×4 (08:00→21:05)
--- NOTE | 2019-08-18 08:10 | NUR ---
Dr. Mejia advised of Lasix and Coreg being held due to BP of 81/49. Also advised that patient has order to use no more than 3L/NC and he is currently on high flow at 10 L. No additional orders received.
[2019-08-18] MEDS: budesonide 0.5mg/2ml UD nebule IH SCH ×2 (10:19→19:28)
--- NOTE | 2019-08-18 10:24 | NUR ---
Patient very lethargic. Is barely maintaining 88-89% saturation on 10 L/high flow. Message sent to Dr. Roberto Villeda, RM 3010. I had to put him back on Bipap. He was barely maintaining 88-89% saturation on 10 L/ low flow Laura Fontanez, U EXT [phone] Thanks
[2019-08-18] MEDS ORDERED: furosemide 20 MG/2 ML vial IV ONE (11:15)
[2019-08-18 11:40] LABS: ABG BASE EXCESS 18.2 mmol/L (-2.0-3.0); ABG HCO3 46.5 mmol/L (22.0-26.0); ABG OXYGEN SATURATION 85.8 % (95-98); ABG PH (T) 7.351 (7.350-7.450); ABG PO2 (T) 55.7 mmHg (83-108); ALLEN'S TEST Positive; FCOHb 0.9 % (0.5-1.5); FMetHb 0.2 % (0.3-1.12); FO2Hb 84.9 % (94-100); MINUTE VOLUME 12 L/min; RESPIRATORY RATE 20 b/min; RESPIRATORY RATE (OBSERVED) 22 b/min; TOTAL HEMOGLOBIN 8.8 G/dl (14.0-17.9)
--- NOTE | 2019-08-18 11:57 | NUR ---
Message to Dr. Mejia - Mr. Villeda RM 3010 - ABG back. CO2 is 86.00 MrLaw Thank you, Estee, [facility] ext [phone]
[2019-08-18] MEDS ORDERED: DOBUTamine-DoBUTrex 500mg/D5W 250 ML IV SCH (13:50)
[2019-08-18] MEDS: furosemide inj 100 MG in normal saline 100ml IV soln 90 ML IV SCH ×2 (15:04→22:24)
--- NOTE | 2019-08-18 16:03 | NUR ---
medical office secretary notified to order bed per orders. Addendum: 08/18/19 at 1603 by Estee Costello RN Amended: Links added.
--- NOTE | 2019-08-18 16:33 | NUR ---
Initial: Pt admit w/ increasing SOB confused AOx3. DX severe pulmonary HTN, afib, CHF, CLL hx, and PNA. S/p R thoracentesis 550ml bloody fluid per report. PO 50-75% avg meals decent PO; ensure pudding TIDWM added given SOB and hx for additional needs. LBM 08/17 receiving routine bowel care. Lasix held today for low bp. Will continue to monitor for additional protein needs this admit. Per MD note comfort measures were also discussed w/ SO; will monitor for any changes in code status. Rec: 1. continue heart healthy/fluid-restricted diet 2. ensure pudding TIDWM 3. wt per rx Addendum: 08/18/19 at [address] Amended: Links added.
--- NOTE | 2019-08-18 18:15 | NUR ---
Patient in room PCU 3010. I have received report from Estee ROSALES and had the opportunity to ask questions and assume patient care.
--- NOTE | 2019-08-18 18:17 | NUR ---
Problems reprioritized. Patient report given, questions answered & plan of care reviewed with CONNIE Noel.
[2019-08-18] MEDS ORDERED: VANCOMYCIN LEVEL IV ONE (18:30)
[2019-08-18] MEDS: docusate sod 100mg capsule PO SCH (21:06)
[2019-08-18] MEDS: gabapentin 300mg capsule PO SCH (21:06)
[2019-08-18] MEDS: potassium Cl 20 mEq SR tablet PO PRN (21:06)
[2019-08-18] MEDS: quetiapine 100mg tablet PO SCH (21:06)
[2019-08-19] VITALS (17 sets, daily range): BP systolic 93–130; BP diastolic 33–78
[2019-08-19] MEDS: HYDROcodone/acetaminophen 10/325mg tab PO SCH ×5 (02:00→20:58)
--- NOTE | 2019-08-19 04:22 | NUR ---
Patients BP decreased at 103/34 (52) rechecked 104/46(60), MAP hanging around mid 50's-low 60's throughout night. Patient easily arousable and asymptomatic. Lasix at 10ml/hr and at 3mcg/hr. Dr. Florez notified. No new orders at this time, will continue to monitor.
[2019-08-19 06:10] LABS: HEMOGLOBIN 7.1 g/dl (14.0-17.9); MEAN CORPUSCULAR HEMOGLOBIN 24.9 PG (27.0-31.0)
[2019-08-19 06:15] LABS: BASOPHILS % (AUTO) 0 % (0-1); EOSINOPHILS # (AUTO) 0.2 X10'3 (0-0.9); EOSINOPHILS % (AUTO) 0.3 % (0-6); HEMATOCRIT 25.2 % (42.0-52.0); LYMPHOCYTES # (AUTO) 55.6 X10'3 (1.1-4.8); LYMPHOCYTES % (AUTO) 88.3 % (21-51); MEAN CORPUSCULAR HGB CONC 28.2 g/dL (33.0-36.5); MEAN CORPUSCULAR VOLUME 88.4 FL (78-98); MEAN PLATELET VOLUME 8.9 FL (7.4-10.4); MONOCYTES # (AUTO) 0.8 X10'3 (0-0.9); MONOCYTES % (AUTO) 1.2 % (2-12); NEUTROPHILS # (AUTO) 6.4 X10'3 (1.8-7.7); NEUTROPHILS % (AUTO) 10.2 % (42-75); PLATELET COUNT 117 X10'3 (140-440); RED BLOOD COUNT 2.85 X10'6 (4.70-6.10); RED CELL DISTRIBUTION WIDTH 19.5 % (11.5-14.5)
[2019-08-19 06:21] LABS: ANION GAP 6 (8-16); BLOOD UREA NITROGEN 84 MG/DL (7-18); CHLORIDE 95 MMOL/L (99-107); GLUCOSE 78 MG/DL (70-104); POTASSIUM 3.3 MMOL/L (3.5-5.1); SODIUM 145 MMOL/L (135-145)
[2019-08-19 06:22] LABS: ALANINE AMINOTRANSFERASE 15 U/L (12-78); ALBUMIN 2.9 G/DL (3.4-5.0); ALBUMIN/GLOBULIN RATIO 0.9 (1.1-1.5); ALKALINE PHOSPHATASE 90 IU/L (46-116); ASPARTATE AMINO TRANSFERASE 20 U/L (10-37); MAGNESIUM 2.1 MG/DL (1.5-2.4); eGFR 22 ML/MIN
[2019-08-19 06:30] LABS: TOTAL CARBON DIOXIDE 44.4 MMOL/L (24-32)
--- NOTE | 2019-08-19 06:37 | NUR ---
Critical AM lab, CO2 44.4. Primary CONNIE Klein notified.
--- NOTE | 2019-08-19 06:37 | NUR ---
Problems reprioritized. Patient report given, questions answered & plan of care reviewed with Ernie ROSALES.
--- NOTE | 2019-08-19 06:38 | NUR ---
Called Dr Frazier about Venous CO2 of 44.4. Dr. Frazier replied, "Okay thanks."
--- NOTE | 2019-08-19 06:39 | NUR ---
Patient in room PCU 3010. I have received report from CONNIE Noel and had the opportunity to ask questions and assume patient care.
[2019-08-19] MEDS: ipratropium/albuterol 3ml nebule NEB SCH ×5 (06:58→23:51)
[2019-08-19] MEDS: budesonide 0.5mg/2ml UD nebule IH SCH ×2 (06:58→20:16)
--- NOTE | 2019-08-19 07:14 | NUR ---
PAGER ID: [phone] MESSAGE: RM 3010 Alexy Villeda: CBC at 63, and venous CO2 at 44.4. CONNIE Klein Ext [phone]
[2019-08-19] MEDS: K and/or MAG REPLACEMENT MC SCH (07:18)
[2019-08-19] MEDS: carVEDilol 3.125mg tablet PO SCH ×2 (08:00→19:56)
--- NOTE | 2019-08-19 08:23 | NUR ---
PAGER ID: [phone] MESSAGE: RM 3018 Alexy Villeda was unable to tolerate being off Bi-pap. He dropped his oxygen saturation to the 60's on 2L NC. CONNIE Klein ext [phone]
[2019-08-19] MEDS: DOBUTamine-DoBUTrex 500mg/D5W 250 ML IV SCH (08:31)
[2019-08-19] MEDS: furosemide inj 100 MG in normal saline 100ml IV soln 90 ML IV SCH ×2 (08:32→19:53)
[2019-08-19] MEDS: amiodarone 200mg tablet PO SCH ×2 (08:33→19:56)
[2019-08-19] MEDS: potassium Cl 20 mEq SR tablet PO PRN ×3 (08:33→19:59)
[2019-08-19] MEDS: fluticasone nasal spray 16GM bottle NS SCH (08:33)
[2019-08-19] MEDS: potassium chloride 10mEq ER tablet PO SCH ×3 (08:33→20:00)
[2019-08-19] MEDS: lactobacillus rhamnosus 10,000 MMU CELLS/CAPSULE PO SCH ×2 (08:34→19:56)
[2019-08-19] MEDS: pantoprazole 40mg Tablet.DR PO SCH ×2 (08:34→19:58)
[2019-08-19] MEDS: apixaban 2.5mg tablet PO SCH ×2 (08:34→19:57)
--- NOTE | 2019-08-19 08:37 | NUR ---
PAGER ID: [phone] MESSAGE: RM 7049 Alexy Villeda, regarding the Coreg. Do you want hold for SBP < 90 or SBP < 100? CONNIE Klein Ext [phone]
[2019-08-19 08:45] LABS: ABG BASE EXCESS 17.1 mmol/L (-2.0-3.0); ABG HCO3 43.3 mmol/L (22.0-26.0); ABG PCO2 (T) 65.7 mmHg (35.0-45.0); ABG PH (T) 7.437 (7.350-7.450); ALLEN'S TEST Positive; FCOHb 0.9 % (0.5-1.5); FMetHb 0.2 % (0.3-1.12); MINUTE VOLUME 18 L/min; RESPIRATORY RATE 20 b/min; RESPIRATORY RATE (OBSERVED) 23 b/min; TOTAL HEMOGLOBIN 7.8 G/dl (14.0-17.9)
[2019-08-19 09:58] LABS: TOTAL CELLS COUNTED 100
[2019-08-19 09:59] LABS: ANISOCYTOSIS 2+; PLATELET ESTIMATE DECREASED
[2019-08-19 10:00] LABS: HYPOCHROMASIA 1+; STOMATOCYTES 2+
[2019-08-19 10:07] LABS: SMUDGE CELLS 4+
[2019-08-19] MEDS: CefTRIAXone/D5W-Rocephin 1gm 50 ML IV SCH (10:54)
--- NOTE | 2019-08-19 11:34 | NUR ---
PAGER ID: [phone] MESSAGE: [id number] Alexy Villeda: is in the room. CONNIE Klein Ext [phone]
--- NOTE | 2019-08-19 15:18 | NUR ---
PRESSURE ULCER EDUCATION: DEFINITION: A pressure ulcer is an area of skin that breaks down when you stay in one position too long. The constant pressure against the skin reduces the blood flow to that area and the affected tissue dies. CAUSES: "Being bedridden or in a wheelchair "Fragile skin "Having a chronic condition, such as diabetes or vascular disease "Inability to move certain parts of your body without assistance "Older age "Incontinence of urine or stool SYMPTOMS: "A reddened area that DOES NOT turn white when pressed on - this can be the beginning of a pressure ulcer "A blister, deep sore or a crater - these can be advanced pressure ulcers FIRST AID: "Relieve the pressure on this area "Keep the area clean and dry "Call your primary doctor if you see any of the above symptoms "DO NOT massage the area "DO NOT use a donut shaped or ring shaped pillow- these actually interfere with the blood flow and cause complications PREVENTION: "Check for pressure ulcers everyday "Change position at least every two hours to relieve pressure "Use items that help relieve pressure- pillows, sheepskin, foam padding, and powders. "Keep skin clean and dry "Eat healthy well balanced meals "Exercise daily IF YOU SEE ANY OF THESE SYMPTOMS WHILE IN THE HOSPITAL - TELL YOUR NURSE IMMEDIATELY. IF YOU SEE ANY OF THESE SYMPTOMS WHILE AT HOME OR HAVE ANY QUESTIONS OR CONCERNS ABOUT PRESSURE ULCERS - CALL YOUR PRIMARY DOCTOR IMMEDIATELY. Addendum: 08/19/19 at 1519 by Za Baxter RN Amended: Links added.
--- NOTE | 2019-08-19 16:00 | NUR ---
PAGER ID: [phone] MESSAGE: RM 3010 Alexy Villeda: Respiratory put him on 8L. Are you fine with that or do you want hm back on back on Bi-pap. I saw orders said not to go above 3L. CONNIE Klein Ext [phone]
--- NOTE | 2019-08-19 18:14 | NUR ---
Problems reprioritized. Patient report given, questions answered & plan of care reviewed with CONNIE Olmstead.
[2019-08-19] MEDS: gabapentin 300mg capsule PO SCH (19:59)
[2019-08-19] MEDS: docusate sod 100mg capsule PO SCH (20:00)
[2019-08-19] MEDS: quetiapine 100mg tablet PO SCH (20:00)
[2019-08-20] VITALS (13 sets, daily range): BP systolic 103–126; BP diastolic 41–79
--- NOTE | 2019-08-20 00:14 | NUR ---
Patient in room PCU 3010. I have received report from Aysha ROSALES and had the opportunity to ask questions and assume patient care.
--- NOTE | 2019-08-20 00:15 | NUR ---
Received report from Aysha. I have looked over all of her charting and agree with her and her orientee's charting.
--- NOTE | 2019-08-20 00:34 | NUR ---
Problems reprioritized. Patient report given, questions answered & plan of care reviewed with alivia ROSALES.
[2019-08-20] MEDS: HYDROcodone/acetaminophen 10/325mg tab PO SCH ×4 (01:21→20:17)
[2019-08-20] MEDS: DOBUTamine-DoBUTrex 500mg/D5W 250 ML IV SCH ×3 (01:25→16:51)
[2019-08-20] MEDS: furosemide inj 100 MG in normal saline 100ml IV soln 90 ML IV SCH ×3 (04:59→20:33)
[2019-08-20 05:22] LABS: BASOPHILS % (AUTO) 0.2 % (0-1); EOSINOPHILS # (AUTO) 0.1 X10'3 (0-0.9); EOSINOPHILS % (AUTO) 0.1 % (0-6); MONOCYTES # (AUTO) 0.6 X10'3 (0-0.9); MONOCYTES % (AUTO) 0.9 % (2-12)
[2019-08-20 05:24] LABS: BASOPHILS # (AUTO) 0.2 X10'3 (0-0.2); HEMATOCRIT 23.2 % (42.0-52.0); LYMPHOCYTES # (AUTO) 61.3 X10'3 (1.1-4.8); LYMPHOCYTES % (AUTO) 91.6 % (21-51); MEAN CORPUSCULAR HEMOGLOBIN 24.9 PG (27.0-31.0); MEAN PLATELET VOLUME 8.3 FL (7.4-10.4); NEUTROPHILS # (AUTO) 4.8 X10'3 (1.8-7.7); NEUTROPHILS % (AUTO) 7.2 % (42-75); PLATELET COUNT 90 X10'3 (140-440); RED BLOOD COUNT 2.61 X10'6 (4.70-6.10); RED CELL DISTRIBUTION WIDTH 20.1 % (11.5-14.5)
[2019-08-20 05:31] LABS: ALBUMIN 2.8 G/DL (3.4-5.0); ANION GAP 5 (8-16); BLOOD UREA NITROGEN 68 MG/DL (7-18); CALCIUM 8.5 MG/DL (8.5-10.1); CHLORIDE 98 MMOL/L (99-107); CREATININE 2.27 MG/DL (0.60-1.10); GLUCOSE 96 MG/DL (70-104); MAGNESIUM 1.9 MG/DL (1.5-2.4); SODIUM 145 MMOL/L (135-145); eGFR 29 ML/MIN
[2019-08-20 05:42] LABS: HEMOGLOBIN 6.5 g/dl (14.0-17.9); WHITE BLOOD COUNT 66.9 X10'3 (4.5-11.0)
--- NOTE | 2019-08-20 05:49 | NUR ---
Called Dr. Florez for critical H/H 6.5/23.2, wants to defer to daytime hospitalist since pt was never transfused before. RN will put in type and cross per protocol.
[2019-08-20 06:01] LABS: TOTAL CARBON DIOXIDE 42.4 MMOL/L (24-32)
--- NOTE | 2019-08-20 06:14 | NUR ---
Problems reprioritized. Patient report given from ,Yari ROSALES orientee. questions answered & plan of care reviewed with .
--- NOTE | 2019-08-20 06:14 | NUR ---
Patient in room PCU 3010. I have received report from CONNIE Greenberg and had the opportunity to ask questions and assume patient care.
[2019-08-20] MEDS: ipratropium/albuterol 3ml nebule NEB SCH ×5 (06:51→23:07)
[2019-08-20] MEDS: K and/or MAG REPLACEMENT MC SCH (07:04)
[2019-08-20] MEDS ORDERED: potassium CL 10mEq/100ml bag 100 ML IV PRN (07:15)
[2019-08-20] MEDS ORDERED: magnesium 4gm in 100ml NS 100 ML IV PRN (07:15)
[2019-08-20] MEDS ORDERED: magnesium Cl slow-release 64mg tablet PO PRN (07:15)
[2019-08-20] MEDS: fluticasone nasal spray 16GM bottle NS SCH (07:20)
[2019-08-20] MEDS: potassium Cl 20 mEq SR tablet PO PRN ×3 (07:21→16:52)
[2019-08-20] MEDS: lactobacillus rhamnosus 10,000 MMU CELLS/CAPSULE PO SCH ×2 (07:21→20:15)
[2019-08-20] MEDS: potassium chloride 10mEq ER tablet PO SCH ×3 (07:21→21:51)
[2019-08-20] MEDS: apixaban 2.5mg tablet PO SCH ×2 (07:21→20:15)
[2019-08-20] MEDS: amiodarone 200mg tablet PO SCH ×2 (07:21→20:15)
[2019-08-20] MEDS: pantoprazole 40mg Tablet.DR PO SCH ×2 (07:22→20:16)
[2019-08-20] MEDS: carVEDilol 3.125mg tablet PO SCH ×2 (07:22→20:15)
--- NOTE | 2019-08-20 07:41 | NUR ---
PAGER ID: [phone] MESSAGE: [id number] Alexy Villeda b 6.5 CONNIE Klein Ext [phone]
[2019-08-20] MEDS: CefTRIAXone/D5W-Rocephin 1gm 50 ML IV SCH (08:09)
[2019-08-20] MEDS: budesonide 0.5mg/2ml UD nebule IH SCH ×2 (09:00→19:36)
[2019-08-20 10:04] LABS: ANISOCYTOSIS 2+; HYPOCHROMASIA 2+; PLATELET ESTIMATE DECREASED; TOTAL CELLS COUNTED 100
[2019-08-20 10:05] LABS: POLYCHROMASIA FEW
--- NOTE | 2019-08-20 17:18 | NUR ---
PAGER ID: [phone] MESSAGE: RM 3014 Alexy Villeda: The is in the room as of now. CONNIE Klein Ext [phone]
--- NOTE | 2019-08-20 19:20 | NUR ---
Patient in room PCU 3010. I have received report from Ernie ROSALES and had the opportunity to ask questions and assume patient care.
--- NOTE | 2019-08-20 20:00 | NUR ---
Dr. Mejia telephoned regarding am hemoglobin of 6.5. Order given to repeat a Hemogram now and to transfuse this pt. w/1 unit of PRBC if hemoglobin is less than 7.0.
[2019-08-20] MEDS: ondansetron/PF 4mg/2ml inj IV PRN (21:40)
[2019-08-20] MEDS: docusate sod 100mg capsule PO SCH (21:51)
[2019-08-20] MEDS: quetiapine 100mg tablet PO SCH (21:51)
[2019-08-20] MEDS: gabapentin 300mg capsule PO SCH (21:51)
[2019-08-20 22:07] LABS: MEAN CORPUSCULAR HEMOGLOBIN 25.1 PG (27.0-31.0); MEAN CORPUSCULAR HGB CONC 27.8 g/dL (33.0-36.5); MEAN CORPUSCULAR VOLUME 90.2 FL (78-98); MEAN PLATELET VOLUME 8.4 FL (7.4-10.4); PLATELET COUNT 105 X10'3 (140-440); RED BLOOD COUNT 3.21 X10'6 (4.70-6.10); RED CELL DISTRIBUTION WIDTH 19.9 % (11.5-14.5)
[2019-08-20 22:13] LABS: WHITE BLOOD COUNT 82.7 X10'3 (4.5-11.0)
[2019-08-21] VITALS (14 sets, daily range): BP systolic 100–146; BP diastolic 53–107
[2019-08-21] MEDS: HYDROcodone/acetaminophen 10/325mg tab PO SCH ×3 (01:40→14:00)
--- NOTE | 2019-08-21 06:00 | NUR ---
Patient in room PCU 3010. I have received report from DEBRA ROSALES and had the opportunity to ask questions and assume patient care.
[2019-08-21] MEDS: budesonide 0.5mg/2ml UD nebule IH SCH ×2 (06:51→19:20)
[2019-08-21] MEDS: ipratropium/albuterol 3ml nebule NEB SCH ×4 (06:51→19:20)
--- NOTE | 2019-08-21 07:00 | NUR ---
Problems reprioritized. Patient report given, questions answered & plan of care reviewed with Zuri ROSALES.
[2019-08-21 07:08] LABS: BASOPHILS # (AUTO) 0.1 X10'3 (0-0.2); EOSINOPHILS # (AUTO) 0.1 X10'3 (0-0.9); HEMATOCRIT 28.3 % (42.0-52.0); MONOCYTES # (AUTO) 0.9 X10'3 (0-0.9)
[2019-08-21 07:14] LABS: BASOPHILS % (AUTO) 0.1 % (0-1); EOSINOPHILS % (AUTO) 0.2 % (0-6); HEMOGLOBIN 7.9 g/dl (14.0-17.9); LYMPHOCYTES # (AUTO) 76.4 X10'3 (1.1-4.8); LYMPHOCYTES % (AUTO) 92.5 % (21-51); MEAN CORPUSCULAR HEMOGLOBIN 25.1 PG (27.0-31.0); MEAN CORPUSCULAR HGB CONC 27.8 g/dL (33.0-36.5); MEAN CORPUSCULAR VOLUME 90.3 FL (78-98); MEAN PLATELET VOLUME 8.4 FL (7.4-10.4); NEUTROPHILS # (AUTO) 5.1 X10'3 (1.8-7.7); NEUTROPHILS % (AUTO) 6.2 % (42-75); PLATELET COUNT 102 X10'3 (140-440); RED BLOOD COUNT 3.14 X10'6 (4.70-6.10); RED CELL DISTRIBUTION WIDTH 19.5 % (11.5-14.5)
[2019-08-21 07:21] LABS: WHITE BLOOD COUNT 82.7 X10'3 (4.5-11.0)
[2019-08-21] MEDS: furosemide inj 100 MG in normal saline 100ml IV soln 90 ML IV SCH ×2 (07:24→19:31)
[2019-08-21 07:26] LABS: ALBUMIN 3.3 G/DL (3.4-5.0); BLOOD UREA NITROGEN 60 MG/DL (7-18); BUN/CREATININE RATIO 28.6 (5.4-32.0); CALCIUM 9.3 MG/DL (8.5-10.1); CHLORIDE 98 MMOL/L (99-107); GLUCOSE 102 MG/DL (70-104); MAGNESIUM 2.1 MG/DL (1.5-2.4); POTASSIUM 3.6 MMOL/L (3.5-5.1); SODIUM 148 MMOL/L (135-145); eGFR 32 ML/MIN
[2019-08-21 07:55] LABS: ANION GAP 4 (8-16)
[2019-08-21 07:58] LABS: TOTAL CARBON DIOXIDE 45.7 MMOL/L (24-32)
[2019-08-21] MEDS: K and/or MAG REPLACEMENT MC SCH (08:00)
--- NOTE | 2019-08-21 08:04 | NUR ---
PAGER ID: [phone] MESSAGE: [id number] MARCIANO HANNY CO2 45.7. SARITHA U [phone]
[2019-08-21] MEDS: CefTRIAXone/D5W-Rocephin 1gm 50 ML IV SCH (08:10)
[2019-08-21] MEDS: DOBUTamine-DoBUTrex 500mg/D5W 250 ML IV SCH (08:11)
[2019-08-21] MEDS: lactobacillus rhamnosus 10,000 MMU CELLS/CAPSULE PO SCH ×2 (08:12→20:24)
[2019-08-21] MEDS: fluticasone nasal spray 16GM bottle NS SCH (08:12)
[2019-08-21] MEDS: carVEDilol 3.125mg tablet PO SCH ×2 (08:12→20:25)
[2019-08-21] MEDS: pantoprazole 40mg Tablet.DR PO SCH ×2 (08:12→20:24)
[2019-08-21] MEDS: apixaban 2.5mg tablet PO SCH ×2 (08:13→20:25)
[2019-08-21] MEDS: potassium chloride 10mEq ER tablet PO SCH ×3 (08:13→20:25)
[2019-08-21] MEDS: amiodarone 200mg tablet PO SCH ×2 (08:14→20:29)
[2019-08-21] MEDS: potassium Cl 20 mEq SR tablet PO PRN ×2 (08:14→15:35)
[2019-08-21 10:11] LABS: TOTAL CELLS COUNTED 100
[2019-08-21 10:13] LABS: PLATELET ESTIMATE DECREASED; POLYCHROMASIA FEW; STOMATOCYTES 1+
[2019-08-21 10:14] LABS: ANISOCYTOSIS 2+; HYPOCHROMASIA 2+
[2019-08-21 10:15] LABS: SMUDGE CELLS 4+
--- NOTE | 2019-08-21 14:44 | NUR ---
PAGER ID: [phone] MESSAGE: [phone], Gilberto Villeda Pt. is obtunded. No response to name or sternal rub. He has scheduled [place] 10 q6H. Can we try narcan? Zuri [facility] [phone]
[2019-08-21] MEDS ORDERED: naloxone 2mg/2ml inj IV STA (14:50)
[2019-08-21] MEDS ORDERED: naloxone 0.4 mg/ml inj ONE (14:59)
[2019-08-21] MEDS ORDERED: naloxone 0.4 mg/ml inj IV ONE (15:00)
--- NOTE | 2019-08-21 15:56 | NUR ---
Notified of patient LOC s/p Narcan administration. PAGER ID: [phone] MESSAGE: [phone] Gilberto Villeda Pt alert, responsive, cooperative s/p Narcan administration. Satting high 80s to low 90s on high flow. FYI. Agarwal 1321
--- NOTE | 2019-08-21 18:24 | NUR ---
Patient in room PCU 3010. I have received report from Maile ROSALES and had the opportunity to ask questions and assume patient care.
[2019-08-21] MEDS: docusate sod 100mg capsule PO SCH (20:24)
[2019-08-21] MEDS: QUEtiapine 25mg tablet PO SCH (20:25)
[2019-08-21] MEDS: HYDROcodone/acetaminophen 10/325mg tab PO PRN (20:26)
[2019-08-21] MEDS: gabapentin 100mg capsule PO SCH (20:33)
[2019-08-22] VITALS (13 sets, daily range): BP systolic 107–128; BP diastolic 51–71
[2019-08-22] MEDS: DOBUTamine-DoBUTrex 500mg/D5W 250 ML IV SCH ×2 (00:01→16:51)
[2019-08-22] MEDS: HYDROcodone/acetaminophen 10/325mg tab PO PRN ×2 (01:58→10:54)
[2019-08-22] MEDS: furosemide inj 100 MG in normal saline 100ml IV soln 90 ML IV SCH ×2 (05:24→16:53)
[2019-08-22 06:01] LABS: BLOOD UREA NITROGEN 47 MG/DL (7-18); CALCIUM 9.1 MG/DL (8.5-10.1); CHLORIDE 98 MMOL/L (99-107); CREATININE 1.74 MG/DL (0.60-1.10); GLUCOSE 95 MG/DL (70-104); POTASSIUM 3.5 MMOL/L (3.5-5.1); SODIUM 145 MMOL/L (135-145); eGFR 39 ML/MIN
[2019-08-22 06:10] LABS: ANION GAP 0 (8-16)
[2019-08-22 06:11] LABS: BASOPHILS % (AUTO) 0 % (0-1); EOSINOPHILS # (AUTO) 0.2 X10'3 (0-0.9); EOSINOPHILS % (AUTO) 0.2 % (0-6); HEMOGLOBIN 8.1 g/dl (14.0-17.9); LYMPHOCYTES # (AUTO) 85.1 X10'3 (1.1-4.8); LYMPHOCYTES % (AUTO) 86.1 % (21-51); MEAN CORPUSCULAR HEMOGLOBIN 25.5 PG (27.0-31.0); MEAN CORPUSCULAR VOLUME 90.8 FL (78-98); MEAN PLATELET VOLUME 8.3 FL (7.4-10.4); MONOCYTES # (AUTO) 2.6 X10'3 (0-0.9); MONOCYTES % (AUTO) 2.6 % (2-12); NEUTROPHILS % (AUTO) 11.1 % (42-75); PLATELET COUNT 99 X10'3 (140-440); RED BLOOD COUNT 3.19 X10'6 (4.70-6.10)
[2019-08-22 06:14] LABS: TOTAL CARBON DIOXIDE 47.3 MMOL/L (24-32)
[2019-08-22 06:16] LABS: WHITE BLOOD COUNT 98.9 X10'3 (4.5-11.0)
--- NOTE | 2019-08-22 06:19 | NUR ---
Problems reprioritized. Patient report given, questions answered & plan of care reviewed with Vi ROSALES.
--- NOTE | 2019-08-22 06:20 | NUR ---
Lab called critical CO2 of 47.3 and WBC 98.9. Called results to Dr Berry, with no change in orders.
[2019-08-22 06:26] LABS: ANISOCYTOSIS 2+; PLATELET ESTIMATE DECREASED; SMUDGE CELLS 4+; TOTAL CELLS COUNTED 100
[2019-08-22 06:27] LABS: HYPOCHROMASIA 2+; POLYCHROMASIA FEW; STOMATOCYTES 1+
--- NOTE | 2019-08-22 06:35 | NUR ---
Patient in room PCU 3010. I have received report from Love ROSALES and had the opportunity to ask questions and assume patient care.
[2019-08-22] MEDS: budesonide 0.5mg/2ml UD nebule IH SCH ×2 (06:53→19:41)
[2019-08-22] MEDS: ipratropium/albuterol 3ml nebule NEB SCH ×4 (06:53→19:42)
[2019-08-22] MEDS: K and/or MAG REPLACEMENT MC SCH (08:00)
[2019-08-22] MEDS: fluticasone nasal spray 16GM bottle NS SCH (08:08)
[2019-08-22] MEDS: CefTRIAXone/D5W-Rocephin 1gm 50 ML IV SCH (08:08)
[2019-08-22] MEDS: pantoprazole 40mg Tablet.DR PO SCH ×2 (08:09→21:35)
[2019-08-22] MEDS: apixaban 2.5mg tablet PO SCH ×2 (08:09→21:36)
[2019-08-22] MEDS: lactobacillus rhamnosus 10,000 MMU CELLS/CAPSULE PO SCH ×2 (08:09→21:36)
[2019-08-22] MEDS: potassium Cl 20 mEq SR tablet PO PRN ×3 (08:09→21:36)
[2019-08-22] MEDS: carVEDilol 3.125mg tablet PO SCH ×2 (08:09→21:36)
[2019-08-22] MEDS: potassium chloride 10mEq ER tablet PO SCH ×3 (08:09→21:35)
[2019-08-22] MEDS: amiodarone 200mg tablet PO SCH ×2 (08:09→21:35)
--- NOTE | 2019-08-22 10:01 | NUR ---
Per MD order, administering K replacement to keep K above 4.0. Currently 3.5
--- NOTE | 2019-08-22 11:49 | NUR ---
reassessment: Pt PO 25% avg fluctuating 8 days since admit AOx2 decreased from admit. Receiving ensure puddings TIDWM on 700ml dietary fluid restriction. ~19L negative fluid balance since admit w/ 10kg wt loss noted. LBM documentation varies 08/17 vs 08/21 receiving colace BID. Poor prognosis per MD note. At this time pt qualifies for non-severe malnutrition given poor PO hx, mild edema, and mild weakness; MD notified. Not appropriate for ed at this time. Will continue to monitor. Rec: 1. continue heart healthy/fluid-restricted diet; encourage PO 2. ensure pudding TIDWM 3. routine bowel care 4. wt per rx Addendum: 08/22/19 at [address] Amended: Links added.
--- NOTE | 2019-08-22 18:12 | NUR ---
Patient in room PCU 3010. I have received report from CONNIE Lebron and had the opportunity to ask questions and assume patient care.
--- NOTE | 2019-08-22 18:31 | NUR ---
Problems reprioritized. Patient report given, questions answered & plan of care reviewed with Vidal ROSALES.
[2019-08-22] MEDS: gabapentin 100mg capsule PO SCH (21:36)
[2019-08-22] MEDS: QUEtiapine 25mg tablet PO SCH (21:36)
[2019-08-22] MEDS: docusate sod 100mg capsule PO SCH (21:36)
[2019-08-23 01:00] VITALS: BP 94/49
[2019-08-23 03:00] VITALS: BP 94/49
[2019-08-23] MEDS: furosemide inj 100 MG in normal saline 100ml IV soln 90 ML IV SCH (03:05)
[2019-08-23 04:00] VITALS: BP 103/56
[2019-08-23 05:39] LABS: ALBUMIN 3.1 G/DL (3.4-5.0); ANION GAP 2 (8-16); BLOOD UREA NITROGEN 38 MG/DL (7-18); BUN/CREATININE RATIO 21.5 (5.4-32.0); CALCIUM 8.8 MG/DL (8.5-10.1); CHLORIDE 100 MMOL/L (99-107); CREATININE 1.77 MG/DL (0.60-1.10); GLUCOSE 103 MG/DL (70-104); POTASSIUM 3.6 MMOL/L (3.5-5.1); SODIUM 145 MMOL/L (135-145); eGFR 38 ML/MIN
[2019-08-23 05:41] LABS: TOTAL CARBON DIOXIDE 42.9 MMOL/L (24-32)
[2019-08-23 05:58] LABS: BASOPHILS # (AUTO) 0.5 X10'3 (0-0.2); BASOPHILS % (AUTO) 0.5 % (0-1); EOSINOPHILS # (AUTO) 0.1 X10'3 (0-0.9); EOSINOPHILS % (AUTO) 0.1 % (0-6); HEMATOCRIT 28.6 % (42.0-52.0); HEMOGLOBIN 8.1 g/dl (14.0-17.9); LYMPHOCYTES # (AUTO) 79.7 X10'3 (1.1-4.8); LYMPHOCYTES % (AUTO) 83.4 % (21-51); MEAN CORPUSCULAR HEMOGLOBIN 25.5 PG (27.0-31.0); MEAN CORPUSCULAR HGB CONC 28.2 g/dL (33.0-36.5); MEAN CORPUSCULAR VOLUME 90.4 FL (78-98); MEAN PLATELET VOLUME 8.1 FL (7.4-10.4); MONOCYTES # (AUTO) 1.4 X10'3 (0-0.9); MONOCYTES % (AUTO) 1.4 % (2-12); NEUTROPHILS % (AUTO) 14.6 % (42-75); PLATELET COUNT 93 X10'3 (140-440); RED BLOOD COUNT 3.16 X10'6 (4.70-6.10); RED CELL DISTRIBUTION WIDTH 20.4 % (11.5-14.5)
[2019-08-23 06:00] VITALS: BP_SYST 104; BP_SYST 114; BP_DIAS 52; BP_DIAS 57
[2019-08-23 06:02] LABS: WHITE BLOOD COUNT 95.6 X10'3 (4.5-11.0)
[2019-08-23 06:13] LABS: ANISOCYTOSIS 3+; PLATELET ESTIMATE DECREASED; SMUDGE CELLS 4+; TOTAL CELLS COUNTED 100
[2019-08-23 06:14] LABS: HYPOCHROMASIA 2+; POLYCHROMASIA FEW; STOMATOCYTES 1+
--- NOTE | 2019-08-23 06:15 | NUR ---
Problems reprioritized. Patient report given, questions answered & plan of care reviewed with Toña ROSALES.
--- NOTE | 2019-08-23 06:20 | NUR ---
Patient in room PCU 3010. I have received report from Vidal ROSALES and had the opportunity to ask questions and assume patient care. Patient asleep in bed. Dobutamine gtt at 5 mcg/kg/min and lasix gtt @ 10 mL/hour. All immediate needs met at this time. Sitter present bedside.
--- NOTE | 2019-08-23 06:20 | NUR ---
Patient in room PCU 3010. I have received report from Vidal Peng and had the opportunity to ask questions and assume patient care. Patient stable at transfer of care.
[2019-08-23] MEDS: budesonide 0.5mg/2ml UD nebule IH SCH (06:52)
[2019-08-23] MEDS: ipratropium/albuterol 3ml nebule NEB SCH ×2 (06:53→10:52)
--- NOTE | 2019-08-23 07:40 | NUR ---
New orders from Dr. Mejia: Discontinue lasix gtt. [place] catheter (A), Lasix 40 mg IV BID start at 1999.
[2019-08-23] MEDS: lactobacillus rhamnosus 10,000 MMU CELLS/CAPSULE PO SCH (07:49)
[2019-08-23] MEDS: apixaban 2.5mg tablet PO SCH (07:50)
[2019-08-23] MEDS: amiodarone 200mg tablet PO SCH (07:50)
[2019-08-23] MEDS: carVEDilol 3.125mg tablet PO SCH (07:51)
[2019-08-23] MEDS: fluticasone nasal spray 16GM bottle NS SCH (07:51)
[2019-08-23] MEDS: pantoprazole 40mg Tablet.DR PO SCH (07:51)
[2019-08-23] MEDS: potassium Cl 20 mEq SR tablet PO PRN (07:51)
[2019-08-23] MEDS: potassium chloride 10mEq ER tablet PO SCH (07:51)
[2019-08-23] MEDS: CefTRIAXone/D5W-Rocephin 1gm 50 ML IV SCH (07:52)
[2019-08-23] MEDS: DOBUTamine-DoBUTrex 500mg/D5W 250 ML IV SCH (08:19)
--- NOTE | 2019-08-23 10:46 | NUR ---
Paged Dr. Mejia: PAGER ID: [phone] MESSAGE: RE: Mayito Villeda [phone]. Patient's is bedside to speak with you. Thank you. Toña [phone]
[2019-08-23 11:00] VITALS: BP 119/73
[2019-08-23] MEDS ORDERED: LORazepam 2 mg/ml vial IV PRN (11:25)
[2019-08-23] MEDS ORDERED: acetaminophen 325mg tablet PO PRN (11:25)
[2019-08-23] MEDS ORDERED: morphine 10mg/0.5ml (conc. morphine) oral syringe PO PRN (11:25)
--- NOTE | 2019-08-23 12:11 | NUR ---
Per Dr. Mejia: Discontinue all orders other than comfort care dated 08/23/19.
[2019-08-23] MEDS: morphine 10mg/ml inj. IV PRN ×4 (12:32→22:37)
--- NOTE | 2019-08-23 18:22 | NUR ---
Problems reprioritized. Patient report given, questions answered & plan of care reviewed with Vidal ROSALES. Patient stable at transfer of care.
--- NOTE | 2019-08-23 18:23 | NUR ---
Problems reprioritized. Patient report given, questions answered & plan of care reviewed with Vidal ROSALES. Patient stable at time of transfer.
--- NOTE | 2019-08-23 18:30 | NUR ---
Patient in room PCU 3010. I have received report from Toña ROSALES/Valeria bedolla, and had the opportunity to ask questions and assume patient care.
[2019-08-23 18:36] VITALS: BP 112/69
[2019-08-23] MEDS ORDERED: furosemide 40mg/4ml inj IV SCH (20:00)
[2019-08-23] MEDS: docusate sod 100mg capsule PO SCH (22:37)
[2019-08-23] MEDS: sennosides/docusate sodium tablet PO SCH (22:38)
[2019-08-24] MEDS: morphine 10mg/ml inj. IV PRN ×2 (01:23→02:45)
--- NOTE | 2019-08-24 05:53 | NUR ---
patient at 0547. Dr. Chapman was notified. the is on the way to see him.
--- NOTE | 2019-08-24 06:31 | NUR ---
Patient in room PCU 3010. I have received report from Vidal ROSALES. Patient at 0547. I will clean patient up and call [facility]'s mortuary after has time with the patient.
--- NOTE | 2019-08-24 06:33 | NUR ---
Discussed with Catarina ROSALES and Valeria RN about contacting the mortuary. The is collecting the belongings and Catarina and Valeria will finish the care.
--- NOTE | 2019-08-24 06:38 | NUR ---
Nursing Progress Note: At 0547 patient went into asystole and . Dr. Chapman was called and is aware. His was notified and is in the room now. Legal hold: Client on voluntary/involuntary status for GD/DTS/DTO. Report received from nurse with use of SBAR. Why are they here:. Pneumonia, Respiratory Failure Assessment What has happened this shift: Patient at 0547 S/I, H/I: A/VH: Sleep: ADL's: Group attendance:Vidal Ko meds taken:No Any med S/E No Mental Status Exam Interventions PRN's used: morphine 5 and 10mg Therapeutic interventions: Restraints/seclusion/emergency medication: Justification of Continued Inpatient Treatment:
[2019-08-24] MEDS: docusate sod 100mg capsule PO SCH (08:00)
[2019-08-24] MEDS: sennosides/docusate sodium tablet PO SCH (08:00)
--- NOTE | 2019-08-24 08:39 | NUR ---
Patient at 0547 this am. had been at bedside and signed expiration memorandum and has chosen [facility] for mortuary services. and has now left. Called [facility] to apple picking supervisor the patient. Removed PIV and graham catheter. Post-mortem care has been provided. Awaiting [facility] for apple picking supervisor.
--- NOTE | 2019-08-24 09:18 | NUR ---
Noted that patient's code status has been made DNR with comfort care. Diet has been changed to regular. Will continue to follow per LOS protocol. Rec: 1. Continue bowel care per comfort care measures Addendum: 08/24/19 at [address] Amended: Links added.
== END 2019-08-24 10:35 | disposition expired | DRG 291 ==
LOC: ER 13:32 → PCU 3S 17:16 → CMPBEDREQ 08-18 03:56
PROVIDERS: ADMIT Family Medicine; ATTEND Hospitalist
PROC: 5A09357 Assistance with Respiratory Ventilation, Less than 24 Consecutive Hours, Continuous Positive Airway Pressure (ICD-10-PCS; principal; 2019-08-14)
PROC: 5A09357 Assistance with Respiratory Ventilation, Less than 24 Consecutive Hours, Continuous Positive Airway Pressure (ICD-10-PCS; 2019-08-15)
PROC: 5A09357 Assistance with Respiratory Ventilation, Less than 24 Consecutive Hours, Continuous Positive Airway Pressure (ICD-10-PCS; 2019-08-16)
PROC: 5A09357 Assistance with Respiratory Ventilation, Less than 24 Consecutive Hours, Continuous Positive Airway Pressure (ICD-10-PCS; 2019-08-17)
PROC: 0W993ZZ Drainage of Right Pleural Cavity, Percutaneous Approach (ICD-10-PCS; 2019-08-17)
PROC: 5A09457 Assistance with Respiratory Ventilation, 24-96 Consecutive Hours, Continuous Positive Airway Pressure (ICD-10-PCS; 2019-08-18)
PROC: 5A09357 Assistance with Respiratory Ventilation, Less than 24 Consecutive Hours, Continuous Positive Airway Pressure (ICD-10-PCS; 2019-08-21)
PROC: 5A09357 Assistance with Respiratory Ventilation, Less than 24 Consecutive Hours, Continuous Positive Airway Pressure (ICD-10-PCS; 2019-08-22)
DX: I13.0 Hypertensive heart and chronic kidney disease with heart failure and stage 1 through stage 4 chronic kidney disease, or unspecified chronic kidney disease (principal); I50.23 Acute on chronic systolic (congestive) heart failure; J96.21 Acute and chronic respiratory failure with hypoxia; J96.22 Acute and chronic respiratory failure with hypercapnia; G93.41 Metabolic encephalopathy; J18.1 Lobar pneumonia, unspecified organism; J44.1 Chronic obstructive pulmonary disease with (acute) exacerbation; N17.9 Acute kidney failure, unspecified; C91.10 Chronic lymphocytic leukemia of B-cell type not having achieved remission; E87.3 Alkalosis; I47.1 Supraventricular tachycardia; J44.0 Chronic obstructive pulmonary disease with (acute) lower respiratory infection; I42.9 Cardiomyopathy, unspecified; M54.2 Cervicalgia; E87.6 Hypokalemia; M54.9 Dorsalgia, unspecified; K57.90 Diverticulosis of intestine, part unspecified, without perforation or abscess without bleeding; Z66 Do not resuscitate; R59.0 Localized enlarged lymph nodes; D64.9 Anemia, unspecified; G89.29 Other chronic pain; I08.1 Rheumatic disorders of both mitral and tricuspid valves; I25.10 Atherosclerotic heart disease of native coronary artery without angina pectoris; I27.20 Pulmonary hypertension, unspecified; I48.0 Paroxysmal atrial fibrillation; K21.9 Gastro-esophageal reflux disease without esophagitis; N18.2 Chronic kidney disease, stage 2 (mild); Z51.5 Encounter for palliative care; Z99.81 Dependence on supplemental oxygen
CPT/HCPCS: 32555; 36415; 36600; 71045; 76937; 80048; 80053; 82803; 83605; 83735; 83880; 84100; 84132; 84157; 84484; 85018; 85025; 85027; 85610; 86885; 86900; 86901; 87040; 87070; 87077; 87081; 87186; 88108; 88305; 88341; 88342; 88360; 89051; 93005; 94640; 94660; 94760; 96365; 96366; 96367; 97110; 97112; 97116; 97162; 97530; 97535; 99291; G0378; J0696; J1250; J1940; J2060; J2270; J2310; J2405; J2543; J3370; J7626